=== PATIENT | male | born 1950 | race Caucasian/White ===

== ENCOUNTER 2017-07-18 16:07 | Inpatient (IN) | payer MEDICARE, OTHER ==
[2017-07-18] MEDS ORDERED: LIDOCAINE 2% INJ 20 MG/ML (20 ML MDV) ONE (16:14)
[2017-07-18] MEDS ORDERED: IV FLUID CONTINUATION 1,000 ML IV ONE (16:23)
[2017-07-18] MEDS ORDERED: LIDOCAINE 2% INJ 20 MG/ML SQ ONE (16:38)
[2017-07-18] MEDS ORDERED: IOHEXOL 350 MG/ML 125ML BOTTLE INJ ONE (16:55)
[2017-07-18] MEDS ORDERED: RX INFO: IV CONTRAST WAS GIVEN 1 EACH MISC MISCELLANE PRN (16:59)
[2017-07-18] MEDS ORDERED: SODIUM CHLORIDE 0.9% 1,000 ML IV SCH (17:00)
[2017-07-18] MEDS ORDERED: ASPIRIN 81 MG PO STA (17:04)
[2017-07-18 18:08] VITALS: BMI 22.4
[2017-07-18 18:19] VITALS: RESP 16
[2017-07-18] MEDS ORDERED: ATORVASTATIN 40 MG TAB PO SCH (21:00)
[2017-07-18] MEDS: METOPROLOL SUCCINATE (ER) 50 MG TAB.ER.24H PO SCH (21:38)
--- NOTE | 2017-07-18 21:38 | CC ---
CARDIAC CATHETERIZATION REPORT INDICATION: Acute myocardial infarction. PROCEDURE NOTE: After obtaining informed consent, left heart catheterization, coronary angiogram and aortogram were performed via the right femoral artery using standard Vani catheters. The patient tolerated the procedure well without any obvious immediate complications. A femoral angiogram was performed and Angio-Seal was deployed for hemostasis. FINDINGS: 1. HEMODYNAMICS: The left ventricular end-diastolic pressure is 16 to 18 mm. There is no significant gradient across aortic valve. 2. LEFT VENTRICULOGRAM: Left ventriculogram is not performed. 3. AORTOGRAM: Aortogram was performed in left lateral position. Aorta has normal signs. There is no evidence of aneurysm or dissection. 4. ANGIOGRAPHIC DATA:. Left Main Coronary Artery: Left main coronary artery appears calcified but is free of significant stenosis. Divides into left anterior descending coronary artery and circumflex coronary artery. The LAD was previously stented in the proximal part and the stented segment appears normal. He has a large caliber diagonal branch that is free of significant stenosis. There is a mild 30-40% atherosclerotic plaque in mid LAD. Circumflex coronary artery is a nondominant vessel and is free of significant disease. Right coronary artery is a large dominant vessel and is free of significant disease. CONCLUSIONS: 1. Patent stent within the LAD with mild nonobstructive disease in mid LAD. 2. Aortogram does not show any aneurysm or dissection. PLAN: The patient's chest discomfort and EKG changes could be related to the vasospasms related to recent cocaine use. The patient is stable and pain-free at this time. We will admit him to hospital. Hopefully he can be discharged home over the next 2 days. We will obtain a 2D echo and troponins on him. MMODL / IJN: [id number] /
--- NOTE | 2017-07-18 21:38 | CONS ---
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 This started while he was working outside moderate to severe intensity, associated with dizziness and diaphoresis. EKG showed sinus rhythm, extensive ST-T wave changes including subtle ST-segment elevation in V1, V2. Due to this, he was brought in urgently as an emergent cardiac catheterization and possible angioplasty. 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 The patient had been explained of risks, benefits and alternatives. The patient uses cocaine and apparently used cocaine yesterday. PAST MEDICAL HISTORY: Significant for coronary artery disease. MEDICATIONS: He does not have a list. ALLERGIES: He does not know. FAMILY HISTORY: Negative for premature coronary artery disease. SOCIAL HISTORY: Significant for drug abuse. REVIEW OF SYSTEMS: HEENT is unremarkable. CARDIAC: As described above. RESPIRATORY: Negative. GI: Negative. GENITOURINARY: Negative. ALLERGY: Negative. MUSCULOSKELETAL: Negative. SKIN: Negative. ENDOCRINE: Negative. PSYCHOSOCIAL: Negative. CONSTITUTIONAL: Negative. ONCOLOGICAL: Negative. The rest of the system review is not relevant. EXAM: Comfortable at rest. Vital signs are stable. There is no jugular venous distention. Carotid upstroke is normal. There is no bruit. Chest exam reveals good air entry bilaterally. Heart exam reveals first and second heart sounds. No gallop. No murmur. No rub. Abdomen is soft, nontender. Exam extremities did not reveal any edema. Peripheral pulses are felt. EKG shows acute ischemic syndrome. Labs have been reviewed. Creatinine is normal. Hemoglobin is normal. ASSESSMENT: Acute anterior wall myocardial infarction. PLAN: The patient will undergo emergent cardiac catheterization. He had been explained the risks, benefits and alternatives. MMODL / IJN: [id number] /
[2017-07-19 08:24] VITALS: TEMP 98.4
[2017-07-19] MEDS: HYDROcodone/APAP 5-325MG 1 EACH TAB PO PRN ×2 (08:28→12:14)
[2017-07-19] MEDS: METOPROLOL SUCCINATE (ER) 50 MG TAB.ER.24H PO SCH (08:28)
[2017-07-19 11:57] VITALS: BP 176/89; PULSE 63
--- NOTE | 2017-07-19 14:08 | P.HPIM ---
History of Present Illness 66-year-old male was transferred from [facility] after he would I was diagnosed with the ST elevation myocardial infarction. Patient was seen in [facility] with complaints of chest pressure-like sensation along with diaphoresis and shortness of breath, palpitations found to have mildly elevated troponin and patient underwent cardiac catheterization which did not show any significant coronary occlusive disease may have had vaso-spasm. Patient cleared him for discharge patient will be discharged today. Patient denied any cough his chest pain is nonpleuritic not associated with food Review of Systems REVIEW OF SYSTEMS: CONSTITUTIONAL: No fever, no malaise, no fatigue. HEENT: No recent visual problems or hearing problems. Denied any sore throat. CARDIOVASCULAR: No orthopnea, PND, no syncope. PULMONARY: No shortness of breath, no cough, no hemoptysis. GASTROINTESTINAL: No diarrhea, no nausea, no vomiting, no abdominal pain. Normoactive bowel sounds. NEUROLOGICAL: No headaches, no weakness, no numbness. HEMATOLOGICAL: Denies any bleeding or petechiae. GENITOURINARY: Denies any burning micturition, frequency, or urgency. MUSCULOSKELETAL/RHEUMATOLOGICAL: Denies any joint pain, swelling, or any muscle pain. ENDOCRINE: Denies any polyuria or polydipsia. The rest of the 14-point review of systems is negative. Past Medical History History of Any Multi-Drug Resistant Organisms: None Reported Past Anesthesia/Blood Transfusion Reactions: No Reported Reaction Past Psychological History: ADD/ADHD Additional Psychological History / Comment(s): was incarcerated in [place] and released in september 2016 Smoking Status: Current every day smoker Past Alcohol Use History: Daily, Heavy Additional Past Alcohol Use History / Comment(s): 6 25oz beers a day Past Drug Use History: Cocaine, Methamphetamine Medications and Allergies Home Medications Medication Instructions Recorded Confirmed Type Baclofen [Lioresal] 20 mg PO BID 07/18/17 07/18/17 History Gabapentin [Neurontin] 300 mg PO BID 07/18/17 07/18/17 History HYDROcodone/APAP 10-325MG [[place] 1 tab PO TID PRN 07/18/17 07/18/17 History 10-325] Hydrochlorothiazide [Hydrodiuril] 25 mg PO DAILY 07/18/17 07/18/17 History Lidocaine [Anecream 4%] 1 applic TOPICAL BID PRN 07/18/17 07/18/17 History Magnesium Oxide [Mag-Ox] 400 mg PO DAILY 07/18/17 07/18/17 History Ranitidine HCl [Zantac] 150 mg PO BID 07/18/17 07/18/17 History Simvastatin [Zocor] 10 mg PO HS 07/18/17 07/18/17 History Tamsulosin HCl [Flomax] 0.4 mg PO BID 07/18/17 07/18/17 History traMADol HCL [Ultram] 50 mg PO TID PRN 07/18/17 07/18/17 History Allergies Allergy/AdvReac Type Severity Reaction Status Date / Time No Known Allergies Allergy Verified 07/18/17 18:59 Physical Exam Vitals: Vital Signs Temp Pulse Resp BP BP Pulse Ox 07/19/17 11:56 98.4 F 63 16 176/89 96 07/19/17 08:00 98.4 F 59 L 16 157/83 98 07/19/17 04:00 96.8 F L 62 16 155/80 97 07/18/17 23:57 86 16 07/18/17 23:55 86 16 128/73 96 07/18/17 20:00 89 16 07/18/17 19:44 98.6 F 89 16 137/76 94 L 07/18/17 18:14 84 16 140/88 07/18/17 17:44 91 16 135/80 07/18/17 17:29 63 16 131/82 Intake and Output 07/18/17 07/19/17 07/19/17 22:59 06:59 14:59 Intake Total 25 600 1200 Balance 25 600 1200 Intake: IV 25 600 600 Sodium Chloride 0.9% 1, 600 600 000 ml @ 75 mls/hr IV . [id number] [facility] Rx#:[id number] Oral 600 Other: Voiding Method Toilet # Voids 2 Weight 57.6 kg 53.4 kg PHYSICAL EXAMINATION: GENERAL: The patient is alert and oriented x3, not in any acute distress. Well developed, well nourished. HEENT: Pupils are round and equally reacting to light. EOMI. No scleral icterus. No conjunctival pallor. Normocephalic, atraumatic. No pharyngeal erythema. No thyromegaly. CARDIOVASCULAR: S1 and S2 present. No murmurs, rubs, or gallops. PULMONARY: Chest is clear to auscultation, no wheezing or crackles. ABDOMEN: Soft, nontender, nondistended, normoactive bowel sounds. No palpable organomegaly. MUSCULOSKELETAL: No joint swelling or deformity. EXTREMITIES: No cyanosis, clubbing, or pedal edema. NEUROLOGICAL: Gross neurological examination did not reveal any focal deficits. SKIN: No rashes. Results Labs: Abnormal Lab Results - Last 24 Hours (Table) 07/18/17 Range/Units 17:55 Troponin I 0.046 H* (0.000-0.034) ng/mL Thrombosis Risk Factor Assmnt - Choose All That Apply Each Risk Factor Represents 2 Points: Age 61-74 years Thrombosis Risk Factor Assessment Total Risk Factor Score: 2 Thrombosis Risk Factor Assessment Level: Low Risk Assessment and Plan Plan: -Non-ST elevation myocardial infarction: Secondary to coronary Vaso- spasm -Gastroesophageal reflux disease next and heparin benign prostatic hypertrophic -Hyperlipidemia -Peripheral neuropathy secondary to chronic low back pain Patient will be discharged today, no medication changes are being made.
[2017-07-19] MEDS ORDERED: ASPIRIN 81 MG PO SCH (14:45)
--- NOTE | 2017-07-19 15:32 | P.PN ---
Subjective Progress Note Date: 07/19/17 Principal diagnosis: Non-STEMI This is a 66-year-old gentleman who presented to [facility] with symptoms of chest discomfort. Patient was found to have abnormality in his troponins and was transferred here to undergo cardiac catheterization. He does have history of prior stent placement in the past. Heart catheterization was performed by Dr. Go and revealed a patent stent within the LAD with mild nonobstructive disease in the mid LAD. Aortogram was also performed which did not reveal any aneurysm or dissection. It was felt that the patient's EKG changes as well as discomfort could be secondary to vasospasm secondary to recent cocaine use. At this time the patient is stable and pain-free. Echocardiogram with Doppler study remains pending. Objective - Vital Signs Vital signs: Vital Signs Temp 98.4 F 07/19/17 11:56 Pulse 63 07/19/17 11:56 Resp 16 07/19/17 11:56 BP 176/89 07/19/17 11:56 Pulse Ox 96 07/19/17 11:56 Intake & Output 07/18/17 07/19/17 07/19/17 18:59 06:59 18:59 Intake Total 25 600 1200 Balance 25 600 1200 Weight 57.6 kg 53.4 kg Intake: IV 25 600 600 Sodium Chloride 0.9% 1, 600 600 000 ml @ 75 mls/hr IV . [id number] [facility] Rx#:[id number] Oral 600 Other: Voiding Method Toilet # Voids 2 - Exam PHYSICAL EXAMINATION: HEENT: Head is atraumatic, normocephalic. Pupils equal, round. Neck is supple. There is no elevated jugular venous pressure. HEART EXAMINATION: Heart S1, S2 normal. No murmur or gallop heard. CHEST EXAMINATION: Lungs are clear to auscultation and precussion. No chest wall tenderness is noted on palpation or with deep breathing. ABDOMEN: Soft, nontender. Bowel sounds are heard. No organomegaly noted. Right groin soft, no evidence of any hematoma. EXTREMITIES: 2+ peripheral pulses with no evidence of peripheral edema and no calf tenderness noted. NEUROLOGIC patient is awake, alert and oriented -3. . - Labs Labs: Abnormal Lab Results - Last 24 Hours (Table) 07/18/17 Range/Units 17:55 Troponin I 0.046 H* (0.000-0.034) ng/mL Assessment and Plan Plan: Assessment and plan #1 non-ST elevation MA, status post cardiac catheterization which did not reveal any significant obstructive coronary artery disease. Patient's symptoms and EKG changes could be secondary to recent cocaine use, and possible vasospasm. #2 history of coronary artery disease with prior stenting #3 EtOH abuse #4 hypertension #5 hyperlipidemia Plan Patient has been encouraged to be up ambulating in the hallway as much as tolerated today. We will review the echocardiogram with Doppler study. A follow-up appointment will be made with Dr. Martinez in the office post discharge. DNP note has been reviewed, I agree with a documented findings and plan of care. Patient was seen and examined.
--- NOTE | 2017-07-19 17:03 | ECHOF ---
Referral Reason:md MEASUREMENTS -------- HEIGHT: 160.0 cm WEIGHT: 57.2 kg BP: 155/80 RVIDd: 2.8 cm (< 3.3) IVSd: 1.6 cm (0.6 - 1.1) LVIDd: 3.5 cm (3.9 - 5.3) LVPWd: 1.7 cm (0.6 - 1.1) IVSs: 2.2 cm LVIDs: 2.3 cm LVPWs: 2.3 cm LAESV Index (A-L): 35.51 ml/m Ao Diam: 3.6 cm (2.0 - 3.7) AV Cusp: 1.4 cm (1.5 - 2.6) LA Diam: 2.9 cm (2.7 - 3.8) MV E Rodrigue: 1.31 m/s MV DecT: 191 ms MV A Rodrigue: 0.74 m/s MV E/A Ratio: 1.76 AV maxP.06 mmHg AV meanP.53 mmHg AR PHT: 511 ms RAP: 5.00 mmHg RVSP: 33.79 mmHg FINDINGS -------- Sinus rhythm. This was a technically good study. The left ventricular size is normal. There is moderate to severe concentric left ventricular hypert rophy. Overall left ventricular systolic function is normal with, an EF between 55 - 60 %. The right ventricle is normal in size and function. LA is moderately dilated 34-39 ml/m2 The right atrium is normal in size. Aortic valve is trileaflet and is mildly thickened. There is pqkt-me-[id number] aortic regurgitation. The aortic pressure half-time by doppler is 511ms. The mitral valve leaflets are moderately thickened. Moderate mitral regurgitation is present. Mild tricuspid regurgitation present. Right ventricular systolic pressure is normal at < 35 mmHg. There is no evidence of pulmonary hypertension. Trace/mild (physiologic) pulmonic regurgitation. The aortic root is borderline dilated. Normal inferior vena cava with normal inspiratory collapse consistent with estimated right atrial pre ssure of 5 mmHg. There is no pericardial effusion. CONCLUSIONS -------- 1. Sinus rhythm. 2. This was a technically good study. 3. The left ventricular size is normal. 4. Overall left ventricular systolic function is normal with, an EF between 55 - 60 %. 5. LA is moderately dilated 34-39 ml/m2 6. Aortic valve is trileaflet and is mildly thickened. 7. There is wosc-bi-nzkkjubt aortic regurgitation. 8. The aortic pressure half-time by doppler is 511ms. 9. The mitral valve leaflets are moderately thickened. 10. Moderate mitral regurgitation is present. 11. Mild tricuspid regurgitation present. 12. Right ventricular systolic pressure is normal at < 35 mmHg. 13. Trace/mild (physiologic) pulmonic regurgitation. 14. The aortic root is borderline dilated. 15. There is no pericardial effusion. LOGISTICS OPERATIONS MANAGER: Alejandro Verma RDCS
== END 2017-07-19 15:40 | disposition home or self-care (01) | DRG 917 ==
LOC: 6ICU 16:23 → 6SEL 17:08
PROVIDERS: ADMIT Hospitalist; ATTEND Hospitalist
PROC: B4101ZZ Fluoroscopy of Abdominal Aorta using Low Osmolar Contrast (ICD-10-PCS; principal; 2017-07-18 16:15)
PROC: 4A023N7 Measurement of Cardiac Sampling and Pressure, Left Heart, Percutaneous Approach (ICD-10-PCS; principal; 2017-07-18 16:15)
PROC: B2111ZZ Fluoroscopy of Multiple Coronary Arteries using Low Osmolar Contrast (ICD-10-PCS; principal; 2017-07-18 16:15)
DX: T40.5X1A Poisoning by cocaine, accidental (unintentional), initial encounter (principal); I21.09 ST elevation (STEMI) myocardial infarction involving other coronary artery of anterior wall; G62.9 Polyneuropathy, unspecified; E78.5 Hyperlipidemia, unspecified; F17.200 Nicotine dependence, unspecified, uncomplicated; G89.29 Other chronic pain; I10 Essential (primary) hypertension; I25.10 Atherosclerotic heart disease of native coronary artery without angina pectoris; K21.9 Gastro-esophageal reflux disease without esophagitis; Z79.899 Other long term (current) drug therapy; Z95.5 Presence of coronary angioplasty implant and graft
CPT/HCPCS: 84484; 93306; 93458; 93567

== ENCOUNTER 2017-09-18 23:25 | Observation (INO) | payer MEDICARE, OTHER ==
[2017-09-19] MEDS ORDERED: ASPIRIN 81 MG PO STA (00:10)
[2017-09-19] MEDS ORDERED: NITROGLYCERIN OINT 1 INCH/GM PACKET TOPICAL STA (00:10)
[2017-09-19] MEDS ORDERED: HEPARIN SODIUM,PORCINE 5,000 UNIT/ML 1 ML VIAL IV STA (00:10)
[2017-09-19] MEDS ORDERED: SODIUM CHLORIDE 0.9% 1,000 ML IV STA (00:10)
[2017-09-19] MEDS ORDERED: KETOROLAC 30 MG/ML 1 ML VIAL IVP STA (00:11)
[2017-09-19] MEDS ORDERED: HEPARIN SOD,PORK IN 0.45% NACL 25,000 UNIT in 0.45% NACL 1 500ML.BAG IV SCH (00:15)
--- NOTE | 2017-09-19 00:15 | ED ---
Chest Pain HPI - General Chief Complaint: Chest Pain Stated Complaint: CHEST PAIN Time Seen by Provider: 09/18/17 23:47 Source: patient, RN notes reviewed Mode of arrival: wheelchair Limitations: no limitations - History of Present Illness Initial Comments: This is a 67-year-old male with a history of heart disease and 2 stents in the past who states he had the onset over last day or so of mid sternal chest pain is nonradiating. He states it currently is 7/10 severity was up to 89/10 and sharp in nature increase with deep breathing but feels identical to what he had with his previous heart attack and stent placement. He denies any cough fevers chills nausea vomiting sweats. No other modifying factors at this time. MD Complaint: chest pain - Related Data Home Medications Medication Instructions Recorded Confirmed Baclofen [Lioresal] 20 mg PO BID 07/18/17 07/18/17 Gabapentin [Neurontin] 300 mg PO BID 07/18/17 07/18/17 HYDROcodone/APAP 10-325MG [[place] 1 tab PO TID PRN 07/18/17 07/18/17 10-325] Hydrochlorothiazide [Hydrodiuril] 25 mg PO DAILY 07/18/17 07/18/17 Lidocaine [Anecream 4%] 1 applic TOPICAL BID PRN 07/18/17 07/18/17 Magnesium Oxide [Mag-Ox] 400 mg PO DAILY 07/18/17 07/18/17 Ranitidine HCl [Zantac] 150 mg PO BID 07/18/17 07/18/17 Simvastatin [Zocor] 10 mg PO HS 07/18/17 07/18/17 Tamsulosin HCl [Flomax] 0.4 mg PO BID 07/18/17 07/18/17 traMADol HCL [Ultram] 50 mg PO TID PRN 07/18/17 07/18/17 Previous Rx's Medication Instructions Recorded Aspirin 81 mg PO DAILY #30 chew 07/19/17 Metoprolol Succinate (ER) [Toprol 50 mg PO DAILY #30 tab.er.24h 07/19/17 XL] Allergies Allergy/AdvReac Type Severity Reaction Status Date / Time No Known Allergies Allergy Verified 09/18/17 23:30 Review of Systems ROS Statement: Those systems with pertinent positive or pertinent negative responses have been documented in the HPI. ROS Other: All systems not noted in ROS Statement are negative. EKG Findings - EKG Results: EKG: interpreted by ERMD, sinus rhythm (Sinus rhythm rate of 108. Interval 158 QRS duration 106 QT since QTC of 340/455 LVH with repolarization abnormality this is compared with EKG dated 07/19/17 which does show a similar configuration without tachycardia) Past Medical History Past Medical History: Chest Pain / Angina, Hyperlipidemia, Hypertension, Myocardial Infarction ([place]) History of Any Multi-Drug Resistant Organisms: None Reported Past Surgical History: Heart Catheterization With Stent Past Anesthesia/Blood Transfusion Reactions: No Reported Reaction Past Psychological History: ADD/ADHD Smoking Status: Current every day smoker Past Alcohol Use History: Daily, Heavy Past Drug Use History: Cocaine, Methamphetamine General Exam - General Exam Comments Initial Comments: This is a well-developed well-nourished awake alert oriented times 3 male Limitations: no limitations General appearance: alert, anxious Head exam: Present: atraumatic, normocephalic, normal inspection Eye exam: Present: normal appearance, PERRL, EOMI. Absent: scleral icterus, conjunctival injection, periorbital swelling ENT exam: Present: normal exam, mucous membranes moist Neck exam: Present: normal inspection. Absent: tenderness, meningismus, lymphadenopathy Respiratory exam: Present: normal lung sounds bilaterally, chest wall tenderness (Tenderness palpation over left costal sternal margin this does reproduce patient's pain but he still states it feels similar to when he had with his previous heart attack.). Absent: respiratory distress, wheezes, rales , rhonchi, stridor Cardiovascular Exam: Present: normal rhythm, tachycardia, normal heart sounds. Absent: systolic murmur, diastolic murmur, rubs, gallop, clicks GI/Abdominal exam: Present: soft, normal bowel sounds. Absent: distended, tenderness, guarding, rebound, rigid Extremities exam: Present: normal inspection, full ROM, normal capillary refill. Absent: tenderness, pedal edema, joint swelling, calf tenderness Back exam: Present: normal inspection Neurological exam: Present: alert, oriented X3, CN II-XII intact Psychiatric exam: Present: normal affect, normal mood Skin exam: Present: warm, dry, intact, normal color. Absent: rash Course Vital Signs 09/18/17 09/19/17 23:27 00:35 Temperature 98.5 F Pulse Rate 108 H 107 H Respiratory 20 18 Rate Blood Pressure 117/69 117/71 O2 Sat by Pulse 99 95 Oximetry - Reevaluation(s) Reevaluation #1: 09/19/17 01:11 Reevaluation patient reveals marked improvement in the chest pain after the treatment that was rendered. Chest Pain MDM - MDM Imaging shows no acute findings I did discuss the findings with the patient is initial troponin is within normal limits EKG showed no changes from the previous however the patient presentation is consistent with angina. He did get improvement and has no chest pain after the initial treatment. He will be admitted with cardiology consultation. Critical Care Time Critical Care Time: Yes Critical Care Time: 35 minutes of critical care time which includes initial presentation with history physical labs x-rays reevaluation the patient to responsive therapy review of old charting admission to the patient's previous hospitalist group. Admission orders and documentation of the above. Disposition Clinical Impression: Unstable angina pectoris, Chest pain Disposition: ADMITTED IP TO THIS [facility] Condition: Stable Referrals: None,Stated [Primary Care Provider] - 1-2 days
[2017-09-19 00:26] LABS: Basophils % (A) 1 %; Eosinophils # (A) 0.2 k/uL (0-0.7); Eosinophils % (A) 3 %; HCT 43.3 % (39.0-53.0); HGB 15.2 gm/dL (13.0-17.5); Lymphocytes # (A) 2.3 k/uL (1.0-4.8); Lymphocytes % (A) 33 %; MCH 32.4 pg (25.0-35.0); MCV 92.3 fL (80.0-100.0); Monocytes # (A) 0.5 k/uL (0-1.0); Monocytes % (A) 7 %; Neutrophils # (A) 3.6 k/uL (1.3-7.7); Neutrophils % (A) 52 %; Platelet Count 417 k/uL (150-450); RBC 4.69 m/uL (4.30-5.90); RDW 12.8 % (11.5-15.5); WBC 6.9 k/uL (3.8-10.6)
[2017-09-19 00:36] LABS: ALT 21 U/L (21-72); AST 33 U/L (17-59); Albumin 4.3 g/dL (3.5-5.0); Alkaline Phosphatase 60 U/L (38-126); Amylase 85 U/L (30-110); Anion Gap 14 mmol/L; Blood Urea Nitrogen 17 mg/dL (9-20); Calcium 10.2 mg/dL (8.4-10.2); Carbon Dioxide 29 mmol/L (22-30); Chloride 98 mmol/L (98-107); Glucose 85 mg/dL (74-99); Lipase 162 U/L (23-300); Magnesium 1.8 mg/dL (1.6-2.3); Potassium 3.9 mmol/L (3.5-5.1); Sodium 141 mmol/L (137-145); Total Bilirubin 0.3 mg/dL (0.2-1.3); Total Protein 7.3 g/dL (6.3-8.2)
[2017-09-19 00:44] LABS: D-Dimer 0.18 mg/L FEU (<0.60); Partial Thromboplastin Time 24.2 sec (22.0-30.0); Prothrombin Time 9.7 sec (9.0-12.0)
[2017-09-19 00:47] LABS: Troponin I 0.027 ng/mL (0.000-0.034)
--- NOTE | 2017-09-19 00:56 | XR ---
EXAMINATION TYPE: XR chest 2V DATE OF EXAM: 09/19/2017 COMPARISON: 06/09/2013 HISTORY: Chest pain TECHNIQUE: Frontal and lateral views of the chest are obtained. FINDINGS: There is no heart failure nor confluent pneumonic infiltrate. There are no hilar masses. T horacic aorta is atheromatous. There are chest leads. Bony thorax is intact. IMPRESSION: No active cardiopulmonary disease. No change.
[2017-09-19 01:04] LABS: Creatine Kinase MB 3.8 ng/mL (0.0-2.4)
[2017-09-19] MEDS ORDERED: NITROGLYCERIN SL TABS 0.4 MG TAB SUBLINGUAL PRN (01:13)
[2017-09-19] MEDS ORDERED: LIDOCAINE 4% CREAM 5 GM TUBE TOPICAL PRN (01:15)
[2017-09-19] MEDS ORDERED: traMADol 50 MG TAB PO PRN (01:15)
[2017-09-19 02:33] VITALS: BMI 21.2
[2017-09-19] MEDS: NITROGLYCERIN OINT 1 INCH/GM PACKET TOPICAL SCH ×3 (06:11→17:52)
[2017-09-19] MEDS: HYDROcodone/APAP 10-325MG 1 EACH TAB PO PRN ×2 (07:11→18:40)
[2017-09-19 08:44] LABS: Creatine Kinase MB 3.8 ng/mL (0.0-2.4)
[2017-09-19 08:47] LABS: Troponin I 0.053 ng/mL (0.000-0.034)
[2017-09-19] MEDS ORDERED: HEPARIN SODIUM,PORCINE 5,000 UNIT/ML 1 ML VIAL IV PRN (08:53)
--- NOTE | 2017-09-19 09:07 | P.CRDCN ---
History of Present Illness History of present illness: Patient admitted with shortness of breath and chest discomfort Minimal coronary artery disease on coronary angiography in the past. Awaiting BUTCH with Dr. Go patient stable at this time. Boderline troponins Suggest proceed with BUTCH on this admission, aspirin and atorvastatin 40 mrem daily Recent cath report noted. No obstructive CAD mid LAD Discussed with Dr. Go. We'll proceed with BUTCH on this admission Past Medical History Past Medical History: Chest Pain / Angina, Hyperlipidemia, Hypertension, Myocardial Infarction ([place]) Last Myocardial Infarction Date:: 2017 History of Any Multi-Drug Resistant Organisms: None Reported Past Surgical History: Heart Catheterization With Stent Additional Past Surgical History / Comment(s): stent x 2 - 6mo apart Past Anesthesia/Blood Transfusion Reactions: No Reported Reaction Date of Last Stent Placement:: ? -approx 15 yrs Past Psychological History: ADD/ADHD Additional Psychological History / Comment(s): was incarcerated in [place] and released in september 2016 Smoking Status: Current every day smoker Past Alcohol Use History: Daily, Heavy Additional Past Alcohol Use History / Comment(s): 3-4 25oz beers a day Past Drug Use History: Cocaine, Methamphetamine - Past Family History Father Family Medical History: Cancer, CVA/TIA Additional Family Medical History / Comment(s): passed Medications and Allergies Home Medications Medication Instructions Recorded Confirmed Type Baclofen [Lioresal] 20 mg PO Q8H 07/18/17 09/19/17 History Gabapentin [Neurontin] 300 mg PO BID 07/18/17 09/19/17 History HYDROcodone/APAP 10-325MG [[place] 1 tab PO TID PRN 07/18/17 09/19/17 History 10-325] Hydrochlorothiazide [Hydrodiuril] 25 mg PO DAILY 07/18/17 09/19/17 History Ranitidine HCl [Zantac] 150 mg PO BID 07/18/17 09/19/17 History Simvastatin [Zocor] 10 mg PO HS 07/18/17 09/19/17 History Tamsulosin HCl [Flomax] 0.4 mg PO BID 07/18/17 09/19/17 History traMADol HCL [Ultram] 50 mg PO TID PRN 07/18/17 09/19/17 History Aspirin 81 mg PO DAILY #30 chew 07/19/17 09/19/17 Rx Metoprolol Succinate (ER) [Toprol 50 mg PO DAILY #30 tab.er.24h 07/19/17 Rx XL] ALPRAZolam [Xanax] 0.125 mg PO BID PRN 09/19/17 09/19/17 History Ibuprofen [Motrin] 600 mg PO TID PRN 09/19/17 09/19/17 History Allergies Allergy/AdvReac Type Severity Reaction Status Date / Time No Known Allergies Allergy Verified 09/19/17 08:21 Physical Exam Vitals: Vital Signs Temp Pulse Pulse Resp BP BP Pulse Ox 09/19/17 07:42 98.1 F 68 16 123/82 97 09/19/17 02:36 80 18 09/19/17 02:07 98.1 F 74 18 116/58 98 09/19/17 01:13 106 H 18 115/58 97 09/19/17 00:35 107 H 18 117/71 95 09/18/17 23:27 98.5 F 108 H 20 117/69 99 Intake and Output 09/18/17 09/19/17 09/19/17 22:59 06:59 14:59 Intake Total 110.357 Balance 110.357 Intake: Intake, IV Titration 110.357 Amount Heparin Sod,Pork in 0.45% 110.357 NaCl 25,000 unit In 0.45 % NaCl 1 500ml.bag @ 12 UNITS/KG/HR 13.06 mls/hr IV .Q24H [facility] Rx#: [id number] Other: Voiding Method Toilet # Voids 3 Weight 54.431 kg Results 09/19/17 00:01 09/19/17 00:01 Cardiac Enzymes 09/19/17 09/19/17 09/19/17 Range/Units 00:01 00:01 07:27 AST 33 (17-59) U/L CK-MB (CK-2) 3.8 H* 3.8 H* (0.0-2.4) ng/mL Troponin I 0.027 0.053 H* (0.000-0.034) ng/mL Coagulation 09/19/17 09/19/17 Range/Units 00:01 07:27 PT 9.7 (9.0-12.0) sec APTT 24.2 34.8 H (22.0-30.0) sec CBC 09/19/17 Range/Units 00:01 WBC 6.9 (3.8-10.6) k/uL RBC 4.69 (4.30-5.90) m/uL Hgb 15.2 (13.0-17.5) gm/dL Hct 43.3 (39.0-53.0) % Plt Count 417 (150-450) k/uL Comprehensive Metabolic Panel 09/19/17 Range/Units 00:01 Sodium 141 (137-145) mmol/L Potassium 3.9 (3.5-5.1) mmol/L Chloride 98 (98-107) mmol/L Carbon Dioxide 29 (22-30) mmol/L BUN 17 (9-20) mg/dL Creatinine 0.70 (0.66-1.25) mg/dL Glucose 85 (74-99) mg/dL Calcium 10.2 (8.4-10.2) mg/dL AST 33 (17-59) U/L ALT 21 (21-72) U/L Alkaline Phosphatase 60 (38-126) U/L Total Protein 7.3 (6.3-8.2) g/dL Albumin 4.3 (3.5-5.0) g/dL Current Medications Generic Name Dose Route Start Last Admin Trade Name Freq PRN Reason Stop Dose Admin Hydrocodone Bitart/Acetaminophen 1 each 09/19/17 01:15 09/19/17 07:11 [place] 10 PO 1 each TID PRN Administration Pain Aspirin 325 mg 09/20/17 09:00 Aspirin PO DAILY [facility] Atorvastatin Calcium 10 mg 09/19/17 21:00 Lipitor PO HS [facility] Baclofen 20 mg 09/19/17 09:00 Lioresal PO BID [facility] Famotidine 20 mg 09/19/17 09:00 Pepcid PO BID [facility] Gabapentin 300 mg 09/19/17 09:00 Neurontin PO BID [facility] Heparin Sodium (Porcine) 0 unit 09/19/17 08:53 09/19/17 09:00 Heparin IV 2,750 unit PER PROTOCOL PRN Administration Low PTT Protocol Hydrochlorothiazide 25 mg 09/19/17 09:00 Hydrodiuril PO DAILY [facility] Heparin Sodium/Sodium Chloride 500 mls @ 13.06 mls/hr 09/19/17 00:15 08:57 25,000 unit/ Sodium Chloride IV 15.06 units/kg/hr .Q24H [facility] 16.4 mls/hr Protocol Titration 12 UNITS/KG/HR Sodium Chloride 1,000 mls @ 100 mls/hr 09/19/17 00:10 09/19/17 00:26 Saline 0.9% IV 09/19/17 10:09 100 mls/hr .Q10H [facility] Administration Sodium Chloride 1,000 mls @ 20 mls/hr 09/19/17 01:15 Saline 0.9% IV .Q24H [facility] Lidocaine HCl 1 applic 09/19/17 01:15 Lmx 4 TOPICAL BID PRN Pain Magnesium Oxide 400 mg 09/19/17 09:00 Mag-Ox PO DAILY [facility] Metoprolol Succinate 50 mg 09/19/17 09:00 Toprol Xl PO DAILY [facility] Nitroglycerin 1 inch 09/19/17 06:00 09/19/17 06:11 Nitro-Bid Oint TOPICAL Not Given Q6HR [facility] Nitroglycerin 0.4 mg 09/19/17 01:13 Nitrostat SUBLINGUAL Q5M PRN Chest Pain Tamsulosin HCl 0.4 mg 09/19/17 09:00 Flomax PO BID [facility] Tramadol HCl 50 mg 09/19/17 01:15 Ultram PO TID PRN Pain Intake and Output 09/18/17 09/19/17 09/19/17 22:59 06:59 14:59 Intake Total 110.357 Balance 110.357 Intake: Intake, IV Titration 110.357 Amount Heparin Sod,Pork in 0.45% 110.357 NaCl 25,000 unit In 0.45 % NaCl 1 500ml.bag @ 12 UNITS/KG/HR 13.06 mls/hr IV .Q24H [facility] Rx#: [id number] Other: Voiding Method Toilet # Voids 3 Weight 54.431 kg 09/19/17 00:01 09/19/17 00:01
[2017-09-19] MEDS: MAGNESIUM OXIDE 400 MG TAB PO SCH (09:46)
[2017-09-19] MEDS: HYDROCHLOROTHIAZIDE 25 MG TAB PO SCH (09:46)
[2017-09-19] MEDS: GABAPENTIN 300 MG CAP PO SCH ×2 (09:46→21:18)
[2017-09-19] MEDS: FAMOTIDINE 20 MG TAB PO SCH ×2 (09:46→21:17)
[2017-09-19] MEDS: TAMSULOSIN 0.4 MG CAP.ER.24H PO SCH ×2 (09:46→21:17)
[2017-09-19] MEDS: BACLOFEN 10 MG TAB PO SCH ×2 (09:47→21:17)
[2017-09-19] MEDS: METOPROLOL SUCCINATE (ER) 50 MG TAB.ER.24H PO SCH (09:47)
[2017-09-19] MEDS: SODIUM CHLORIDE 0.9% 1,000 ML IV SCH (10:38)
[2017-09-19 11:12] LABS: Amphetamine Screen,Urine Detected (NotDetected); Barbiturate Screen,Urine Not Detected (NotDetected); Benzodiazepines Screen,Urine Not Detected (NotDetected); Cocaine Screen,Urine Not Detected (NotDetected); Methadone Screen, Urine Not Detected (NotDetected); Opiate Screen,Urine Detected (NotDetected); Oxycodone Screen, Urine Not Detected (NotDetected); Phencyclidine Screen,Urine Not Detected (NotDetected); Tricyclic Antidepressant,Urine Not Detected (NotDetected); Urn Cannabinoid Scrn Not Detected (NotDetected)
[2017-09-19] MEDS ORDERED: ALPRAZolam 0.25 MG TAB PO PRN (11:40)
[2017-09-19 11:56] LABS: Cholesterol 147 mg/dL (<200); HDL Cholesterol 79 mg/dL (40-60); LDL Cholesterol,Calculated 57 mg/dL (0-99); Triglycerides 57 mg/dL (<150)
--- NOTE | 2017-09-19 12:15 | P.HPIM ---
History of Present Illness H&P Date: 09/19/17 Patient is seen and examined at bedside This is a pleasant 67 years old male with past medical history of coronary artery disease status post 2 stents who presents with chest pain of one-day duration the patient states that he had this chest pain about 2 months ago and has when he had the stent placed for him this time he presents with a similar chest pain central pressure-like radiating into the left shoulder associated with exertion or not relieved by rest on admission the patient found in the emergency room to have elevated troponin slightly at 0.05 patient was started on heparin drip and other treatment patient today feels his chest pain is much improved in CP from 02/18 to to 06/20, patient dizziness is much improved patient has been evaluated by human resources operations specialist already started on heparin drip Risks benefits and alternative for the heparin including but not limited to bleeding into the brain GI bleed, organ dysfunction on are explained to the patient and he verbalized understanding and acceptance to continue with the same treatment Review of Systems 10 point systemic review were negative except as mentioned above Past Medical History Past Medical History: Chest Pain / Angina, Hyperlipidemia, Hypertension, Myocardial Infarction ([place]) Last Myocardial Infarction Date:: 2017 History of Any Multi-Drug Resistant Organisms: None Reported Past Surgical History: Heart Catheterization With Stent Additional Past Surgical History / Comment(s): stent x 2 - 6mo apart Past Anesthesia/Blood Transfusion Reactions: No Reported Reaction Date of Last Stent Placement:: ? -approx 15 yrs Past Psychological History: ADD/ADHD Additional Psychological History / Comment(s): was incarcerated in [place] and released in september 2016 Smoking Status: Current every day smoker Past Alcohol Use History: Daily, Heavy Additional Past Alcohol Use History / Comment(s): 3-4 25oz beers a day Past Drug Use History: Cocaine, Methamphetamine - Past Family History Father Family Medical History: Cancer, CVA/TIA Additional Family Medical History / Comment(s): passed Medications and Allergies Home Medications Medication Instructions Recorded Confirmed Type Baclofen [Lioresal] 20 mg PO Q8H 07/18/17 09/19/17 History Gabapentin [Neurontin] 300 mg PO BID 07/18/17 09/19/17 History HYDROcodone/APAP 10-325MG [[place] 1 tab PO TID PRN 07/18/17 09/19/17 History 10-325] Hydrochlorothiazide [Hydrodiuril] 25 mg PO DAILY 07/18/17 09/19/17 History Ranitidine HCl [Zantac] 150 mg PO BID 07/18/17 09/19/17 History Simvastatin [Zocor] 10 mg PO HS 07/18/17 09/19/17 History Tamsulosin HCl [Flomax] 0.4 mg PO BID 07/18/17 09/19/17 History traMADol HCL [Ultram] 50 mg PO TID PRN 07/18/17 09/19/17 History Aspirin 81 mg PO DAILY #30 chew 07/19/17 09/19/17 Rx Metoprolol Succinate (ER) [Toprol 50 mg PO DAILY #30 tab.er.24h 07/19/17 Rx XL] ALPRAZolam [Xanax] 0.125 mg PO BID PRN 09/19/17 09/19/17 History Ibuprofen [Motrin] 600 mg PO TID PRN 09/19/17 09/19/17 History Allergies Allergy/AdvReac Type Severity Reaction Status Date / Time No Known Allergies Allergy Verified 09/19/17 08:21 Physical Exam Vitals: Vital Signs Temp Pulse Pulse Resp BP BP Pulse Ox 09/19/17 07:42 98.1 F 68 16 123/82 97 09/19/17 02:36 80 18 09/19/17 02:07 98.1 F 74 18 116/58 98 09/19/17 01:13 106 H 18 115/58 97 09/19/17 00:35 107 H 18 117/71 95 09/18/17 23:27 98.5 F 108 H 20 117/69 99 Intake and Output 09/18/17 09/19/17 09/19/17 22:59 06:59 14:59 Intake Total 110.357 Balance 110.357 Intake: Intake, IV Titration 110.357 Amount Heparin Sod,Pork in 0.45% 110.357 NaCl 25,000 unit In 0.45 % NaCl 1 500ml.bag @ 12 UNITS/KG/HR 13.06 mls/hr IV .Q24H [facility] Rx#: [id number] Other: Voiding Method Toilet Toilet # Voids 3 Weight 54.431 kg Constitutional: No acute distress, conversant, pleasant Eyes: Anicteric sclerae, moist conjunctiva, no lid-lag PERRLA Oropharynx clear, no erythema, exudates Neck: Supple, FROM, no masses, or JVD No carotid bruits No thyromegaly Lungs: Clear to auscultation Clear to percussion Normal respiratory effort, no accessory muscle use Cardiovascular: Heart regular in rate and rhythm, Systolic murmur and apical area , gallops, or rubs No peripheral edema Abdominal: Soft Nontender, no guarding, rebound or rigidity Abdomen moving with respiration Normoactive bowel sounds No hepatomegaly, No splenomegaly No palpable mass No abdominal wall hernia noted Skin: Normal temperature, tone, texture, turgor No induration No subcutaneous nodules No rash, lesions No ulcers Extremities: No digital cyanosis No clubbing Pedal pulses intact and symmetrical Radial pulses intact and symmetrical Normal gait and station No calf tenderness Psychiatric: Alert and oriented to person, place and time Appropriate affect Intact judgment Neuro: Muscles Strength 5/5 in all 4 extremities Sensation to light touch grossly present throughout Cranial nerves II-XII grossly intact No focal sensory deficits Results CBC & Chem 7: 09/19/17 00:01 09/19/17 00:01 Labs: Abnormal Lab Results - Last 24 Hours (Table) 09/19/17 09/19/17 09/19/17 Range/Units 00:01 07:27 07:27 APTT 34.8 H (22.0-30.0) sec CK-MB (CK-2) 3.8 H* 3.8 H* (0.0-2.4) ng/mL Troponin I 0.053 H* (0.000-0.034) ng/mL Urine Opiates Screen (NotDetected) Ur Amphetamines Screen (NotDetected) U Methamphetamines Scrn (NotDetected) 09/19/17 Range/Units 10:40 APTT (22.0-30.0) sec CK-MB (CK-2) (0.0-2.4) ng/mL Troponin I (0.000-0.034) ng/mL Urine Opiates Screen Detected H (NotDetected) Ur Amphetamines Screen Detected H (NotDetected) U Methamphetamines Scrn Detected H (NotDetected) Thrombosis Risk Factor Assmnt - Choose All That Apply Each Risk Factor Represents 2 Points: Age 61-74 years Thrombosis Risk Factor Assessment Total Risk Factor Score: 2 Thrombosis Risk Factor Assessment Level: Low Risk Assessment and Plan Plan: 1. Chest pain possible cardiac origin versus other cardiology consultation is appreciated Chest X-rays negative, second troponin is slightly elevated at 0.053. EKG is reviewed with no significant ST T changes Continue with heparin drip Also patient is with systolic murmur which he says he knows about already Patient is going for a BUTCH tomorrow c/w aspirin and atorvastatin 40 mg daily 2. Retention continue with hydrochlorothiazide 25 mg daily and metoprolol 50 mg daily 3. Smoker: Patient is counseled to quit smoking he said he will think about it but he agrees to continue with the nicotine pouch Time with Patient: Less than 30
[2017-09-19 12:16] LABS: Creatine Kinase MB 3.7 ng/mL (0.0-2.4); Troponin I 0.048 ng/mL (0.000-0.034)
--- NOTE | 2017-09-19 13:31 | P.CRDCN ---
History of Present Illness Consult date: 09/19/17 History of present illness: Mr. Harry is a pleasant 67-year-old male past medical history significant for coronary artery disease with a patent stent in the proximal LAD per last cath July 2017. At that time he also had mild 30-40% plaque noted in the mid LAD, he did not undergo angioplasty at that time. RCA and circumflex are free of obstructive disease. At that time he was also diagnosed with aortic stenosis with a mean gradient across the valve of 54 mmHg. He also suffers from hypertension and dyslipidemia. He is a current everyday tobacco smoker and has a recent history of cocaine and methamphetamine abuse. She also drinks 3-4 beers daily. He follows with Dr. Martinez in the office. We've been asked to see him in consultation for complaints of chest pain. He states he has been feeling pain in his chest in the mid-sternal and precordial region described as a heavy pressure sensation. When the pain comes he is usually sitting and resting with no specific aggravating factors. With the pain he feels short of breath, palpitations, nausea and clammy/diaphoretic feeling all over. This lasts for a few minutes at a time and goes away on its own with no specific alleviating factors. Since arriving in the hospital he has had no further symptoms and telemetry tracings have been unremarkable. Review of office records reveal that Dr. Martinez has recommended he undergo BUTCH to fully evaluate the aortic valve and he has refused in the past. He states he hasn't used cocaine since June. EKG on arrival reveals sinus tachycardia heart rate 108 with precordial T-wave inversions and ST depression that is not a change from previous EKG in July. Chest xray is negative for an acute cardiopulmonary process. Laboratory data reviewed, hemoglobin 15.2, platelets 417, d-dimer 0.18, potassium 3.9, magnesium 1.8, creatinine 0.7, proBNP 967, troponin values as follows 0.027, 0.053, 0.048. LDL 57, HDL 79, triglycerides 57, total cholesterol 37. Urine drug screen was positive for opiates, amphetamines and methamphetamines. Current cardiac medications include simvastatin 10 mg daily, Toprol 50 mg daily , hydrochlorothiazide 25 mg daily, aspirin 81 mg daily. Review of Systems At the time of exam: CONSTITUTIONAL: Denies fever. Denies chills. EYES: Denies blurred vision. Denies vision changes. Denies eye pain. EARS, NOSE, MOUTH & THROAT: Denies headache. Denies sore throat. Denies ear pain. CARDIOVASCULAR: Denies chest pain. Denies shortness of breath. Denies orthopnea. Denies PND. Denies palpitations. RESPIRATORY: Denies cough. GASTROINTESTINAL: Denies abdominal pain. Denies diarrhea. Denies constipation. Denies nausea. Denies vomiting. MUSCULOSKELETAL: Denies myalgias. INTEGUMENTARY: Denies pruitis. Denies rash. NEUROLOGIC: Denies numbness. Denies tingling. Denies weakness. PSYCHIATRIC: Denies anxiety. Denies depression. ENDOCRINE: Denies fatigue. Denies weight change. Denies polydipsia. Denies polyurina. GENITOURINARY: Denies burning, hematuria or urgency with micturation. HEMATOLOGIC: Denies history of anemia. Denies bleeding. Past Medical History Past Medical History: Chest Pain / Angina, Hyperlipidemia, Hypertension, Myocardial Infarction ([place]) Last Myocardial Infarction Date:: 2017 History of Any Multi-Drug Resistant Organisms: None Reported Past Surgical History: Heart Catheterization With Stent Additional Past Surgical History / Comment(s): stent x 2 - 6mo apart Past Anesthesia/Blood Transfusion Reactions: No Reported Reaction Date of Last Stent Placement:: ? -approx 15 yrs Past Psychological History: ADD/ADHD Additional Psychological History / Comment(s): was incarcerated in [place] and released in september 2016 Smoking Status: Current every day smoker Past Alcohol Use History: Daily, Heavy Additional Past Alcohol Use History / Comment(s): 3-4 25oz beers a day Past Drug Use History: Cocaine, Methamphetamine - Past Family History Father Family Medical History: Cancer, CVA/TIA Additional Family Medical History / Comment(s): passed Medications and Allergies Home Medications Medication Instructions Recorded Confirmed Type Baclofen [Lioresal] 20 mg PO Q8H 07/18/17 09/19/17 History Gabapentin [Neurontin] 300 mg PO BID 07/18/17 09/19/17 History HYDROcodone/APAP 10-325MG [[place] 1 tab PO TID PRN 07/18/17 09/19/17 History 10-325] Hydrochlorothiazide [Hydrodiuril] 25 mg PO DAILY 07/18/17 09/19/17 History Ranitidine HCl [Zantac] 150 mg PO BID 07/18/17 09/19/17 History Simvastatin [Zocor] 10 mg PO HS 07/18/17 09/19/17 History Tamsulosin HCl [Flomax] 0.4 mg PO BID 07/18/17 09/19/17 History traMADol HCL [Ultram] 50 mg PO TID PRN 07/18/17 09/19/17 History Aspirin 81 mg PO DAILY #30 chew 07/19/17 09/19/17 Rx Metoprolol Succinate (ER) [Toprol 50 mg PO DAILY #30 tab.er.24h 07/19/17 Rx XL] ALPRAZolam [Xanax] 0.125 mg PO BID PRN 09/19/17 09/19/17 History Ibuprofen [Motrin] 600 mg PO TID PRN 09/19/17 09/19/17 History Allergies Allergy/AdvReac Type Severity Reaction Status Date / Time No Known Allergies Allergy Verified 09/19/17 08:21 Physical Exam Vitals: Vital Signs Temp Pulse Pulse Resp BP BP Pulse Ox 09/19/17 07:42 98.1 F 68 16 123/82 97 09/19/17 02:36 80 18 09/19/17 02:07 98.1 F 74 18 116/58 98 09/19/17 01:13 106 H 18 115/58 97 09/19/17 00:35 107 H 18 117/71 95 09/18/17 23:27 98.5 F 108 H 20 117/69 99 Intake and Output 09/18/17 09/19/17 09/19/17 22:59 06:59 14:59 Other: Voiding Method Toilet # Voids 3 Weight 54.431 kg Blood pressure 123/82 heart rate 68 afebrile maintaining oxygen saturation on room air GENERAL: This is a 67-year-old in no apparent distress at the time of my examination. HEENT: Head is atraumatic, normocephalic. Pupils are equal, round. Sclerae anicteric. Conjunctivae are clear. Mucous membranes of the mouth are moist. Neck is supple. There is no jugular venous distention. No carotid bruit is heard. LUNGS: Clear to auscultation no wheezes, rales or rhonchi. No chest wall tenderness is noted on palpation or with deep breathing. Diminished bilaterally. HEART: Regular rate and rhythm with systolic ejection murmur at the base, no rubs or gallops. S1 and S2 heard. ABDOMEN: Soft, nontender. Bowel sounds are heard. No organomegaly noted. EXTREMITIES: No evidence of peripheral edema and no calf tenderness noted. VASCULAR: Radial and dorsalis pedis pulses palpated, no evidence of clubbing. NEUROLOGIC: Patient is awake, alert and oriented x3. Results 09/19/17 00:01 09/19/17 00:01 Cardiac Enzymes 09/19/17 09/19/17 Range/Units 00:01 00:01 AST 33 (17-59) U/L CK-MB (CK-2) 3.8 H* (0.0-2.4) ng/mL Troponin I 0.027 (0.000-0.034) ng/mL Coagulation 09/19/17 09/19/17 Range/Units 00:01 07:27 PT 9.7 (9.0-12.0) sec APTT 24.2 34.8 H (22.0-30.0) sec CBC 09/19/17 Range/Units 00:01 WBC 6.9 (3.8-10.6) k/uL RBC 4.69 (4.30-5.90) m/uL Hgb 15.2 (13.0-17.5) gm/dL Hct 43.3 (39.0-53.0) % Plt Count 417 (150-450) k/uL Comprehensive Metabolic Panel 09/19/17 Range/Units 00:01 Sodium 141 (137-145) mmol/L Potassium 3.9 (3.5-5.1) mmol/L Chloride 98 (98-107) mmol/L Carbon Dioxide 29 (22-30) mmol/L BUN 17 (9-20) mg/dL Creatinine 0.70 (0.66-1.25) mg/dL Glucose 85 (74-99) mg/dL Calcium 10.2 (8.4-10.2) mg/dL AST 33 (17-59) U/L ALT 21 (21-72) U/L Alkaline Phosphatase 60 (38-126) U/L Total Protein 7.3 (6.3-8.2) g/dL Albumin 4.3 (3.5-5.0) g/dL Current Medications Generic Name Dose Route Start Last Admin Trade Name Freq PRN Reason Stop Dose Admin Hydrocodone Bitart/Acetaminophen 1 each 09/19/17 01:15 09/19/17 07:11 [place] 10 PO 1 each TID PRN Administration Pain Aspirin 325 mg 09/20/17 09:[address] [facility] Atorvastatin Calcium 10 mg 09/19/17 21:[address] [facility] Baclofen 20 mg 09/19/17 09:[address] [facility] Famotidine 20 mg 09/19/17 09:[address] [facility] Gabapentin 300 mg 09/19/17 09:[address] [facility] Hydrochlorothiazide 25 mg 09/19/17 09:[address] [facility] Heparin Sodium/Sodium Chloride 500 mls @ 13.06 mls/hr 09/19/17 00:15 00:30 25,000 unit/ Sodium Chloride IV 12 units/kg/hr .Q24H [facility] 13.06 mls/hr Protocol Administration 12 UNITS/KG/HR Sodium Chloride 1,000 mls @ 100 mls/hr 09/19/17 00:10 09/19/17 00:26 Saline 0.9% IV 09/19/17 10:09 100 mls/hr .Q10H [facility] Administration Sodium Chloride 1,000 mls @ 20 mls/hr 09/19/17 01:15 Saline 0.9% IV .Q24H [facility] Lidocaine HCl 1 applic 09/19/17 01:15 Lmx 4 TOPICAL BID PRN Pain Magnesium Oxide 400 mg 09/19/17 09:00 Mag-Ox PO DAILY [facility] Metoprolol Succinate 50 mg 09/19/17 09:[address] [facility] Nitroglycerin 1 inch 09/19/17 06:00 09/19/17 06:11 Nitro-Bid Oint TOPICAL Not Given Q6HR [facility] Nitroglycerin 0.4 mg 09/19/17 01:13 Nitrostat SUBLINGUAL Q5M PRN Chest Pain Tamsulosin HCl 0.4 mg 09/19/17 09:[address] [facility] Tramadol HCl 50 mg 09/19/17 01:15 Ultram PO TID PRN Pain Intake and Output 09/18/17 09/19/17 09/19/17 22:59 06:59 14:59 Other: Voiding Method Toilet # Voids 3 Weight 54.431 kg 09/19/17 00:01 09/19/17 00:01 Assessment and Plan Assessment: ASSESSMENT 1. Precordial chest pain with recent catheterization in July with stable CAD and probably vasospasm causing angina at that time. 2. Severe aortic stenosis, mean gradient per recent echo 54 mmHg 3. Hypertension 4. Dyslipidemia 5. Known chronic stable CAD 6. Chronic tobacco abuse 7. Chronic drug abuse with cocaine and methamphetamine 8. Chronic daily alcohol use PLAN Discussed with Dr. Martinez his primary lease analyst and he will proceed with a BUTCH small morning. The patient should be kept nothing by mouth after midnight tonight. Ongoing medical management of stable for an area artery disease. Lifestyle modifications discussed in the form of drug alcohol and tobacco cessation. Continue with aspirin and atorvastatin. Nurse Practitioner note has been reviewed, I agree with a documented findings and plan of care. Patient was seen and examined.
[2017-09-19] MEDS: NICOTINE 21MG/24HR PATCH TRANSDERM SCH (13:39)
[2017-09-19] MEDS ORDERED: ATORVASTATIN 10 MG TAB PO SCH (21:00)
[2017-09-20] MEDS: NITROGLYCERIN OINT 1 INCH/GM PACKET TOPICAL SCH ×3 (00:29→11:55)
[2017-09-20] MEDS: HYDROcodone/APAP 10-325MG 1 EACH TAB PO PRN (03:34)
[2017-09-20] MEDS ORDERED: MIDAZOLAM 2 MG/2 ML VIAL ONE (07:39)
[2017-09-20] MEDS ORDERED: fentaNYL (PF) 50 MCG/ML 2 ML AMP ONE (07:39)
[2017-09-20] MEDS ORDERED: SODIUM CHLORIDE 0.9% 500 ML IV ONE (07:55)
[2017-09-20] MEDS: BENZOCAINE SPRAY 1 CAN MUCOUS MEM ONE ×2 (07:56→08:00)
[2017-09-20] MEDS ORDERED: MIDAZOLAM 2 MG/2 ML VIAL IV ONE (08:01)
[2017-09-20] MEDS ORDERED: fentaNYL (PF) 50 MCG/ML 2 ML AMP IV ONE (08:02)
[2017-09-20 08:13] VITALS: RESP 16
[2017-09-20] MEDS ORDERED: SODIUM CHLORIDE 0.9% 1,000 ML IV SCH (08:15)
--- NOTE | 2017-09-20 08:30 | ECHOT ---
TRANSESOPHAGEAL ECHOCARDIOGRAM INDICATION: Mitral regurgitation. PROCEDURE NOTE: After obtaining informed consent, transesophageal echocardiogram is performed in left lateral position using an Omniplane probe. Local and IV sedation were obtained using Xylocaine spray, 2 mg of Versed and fentanyl. The patient tolerated the procedure well without any obvious immediate complications. FINDINGS: 1. Mitral valve appears thickened. There is mild prolapse of the anterior mitral leaflet. There is mild to moderate mitral regurgitation noted. 2. Aortic valve is a 3-leaflet valve. It shows sclerotic changes without any stenosis. There is trace aortic regurgitation noted. 3. There is mild tricuspid regurgitation noted. 4. Left ventricle shows concentric left ventricular hypertrophy with thickening of the outflow tract with normal LV function. 5. Left atrium, right atrium, right ventricle seen within normal limits. 6. Aorta appears normal. 7. There are mild atherosclerotic changes noted. 8. Interatrial septum: There is no evidence of [id number]-[id number] shunt by color-flow Doppler or [id number] shunt by agitated saline contrast study. CONCLUSIONS: 1. Mild to moderate mitral regurgitation. 2. Trace aortic regurgitation. PLAN: No further cardiac intervention is needed at this time. The patient will follow up with me in 4 months' time. MMODL / IJN: [id number] /
[2017-09-20] MEDS ORDERED: ASPIRIN 325 MG TAB PO SCH (09:00)
[2017-09-20] MEDS ORDERED: ASPIRIN 81 MG PO SCH (09:00)
[2017-09-20 09:22] VITALS: PULSE 55
[2017-09-20] MEDS: TAMSULOSIN 0.4 MG CAP.ER.24H PO SCH (10:08)
[2017-09-20] MEDS: SODIUM CHLORIDE 0.9% 1,000 ML IV SCH (10:08)
[2017-09-20] MEDS: NICOTINE 21MG/24HR PATCH TRANSDERM SCH (10:08)
[2017-09-20] MEDS: METOPROLOL SUCCINATE (ER) 50 MG TAB.ER.24H PO SCH (10:10)
[2017-09-20] MEDS: BACLOFEN 10 MG TAB PO SCH (10:10)
[2017-09-20] MEDS: GABAPENTIN 300 MG CAP PO SCH (10:10)
[2017-09-20] MEDS: FAMOTIDINE 20 MG TAB PO SCH (10:10)
[2017-09-20] MEDS: HYDROCHLOROTHIAZIDE 25 MG TAB PO SCH (10:11)
[2017-09-20] MEDS: MAGNESIUM OXIDE 400 MG TAB PO SCH (10:11)
[2017-09-20 12:19] VITALS: BP 104/72; TEMP 98
--- NOTE | 2017-09-20 13:46 | P.DS ---
Providers Date of admission: 09/19/17 01:13 Expected date of discharge: 09/20/17 Attending physician: Hallie Mayifeld Consults: 09/19/17 01:13 Consult Physician Urgent Consulting Provider: Guillermo Berger Consult Reason/Comments: Unstable angina Do you want consulting provider notified?: Yes, Notify in am Primary care physician: Stated None [facility] Course: This is a pleasant 67 years old male with past medical history of coronary artery disease status post 2 stents who presents with chest pain of one-day duration the patient states that he had this chest pain about 2 months ago and has when he had the stent placed for him this time he presents with a similar chest pain central pressure-like radiating into the left shoulder associated with exertion or not relieved by rest on admission the patient found in the emergency room to have elevated troponin slightly at 0.05 patient was started on heparin drip and other treatment patient today feels his chest pain is much improved in CP from 02/18 to to 06/20, patient dizziness is much improved patient has been evaluated by [facility]an[facility] support worker already started on heparin drip on the day of discharge hic CP is resolved completely , no dyspnea , no other s/ s and states he is back to his normal and he is ambulatory with no problems Patient has been evaluated by cardiology team under consult is appreciated discussed the case with them most likely the patient has vaso-spasm with known coronary artery disease, his high troponins on admission were trending down patient's symptoms of chest pain and dyspnea or completely resolved upon discharge Patient has systolic murmur and underwent BUTCH which shows no concerning for aortc stenosis Cleared by cardiology team and he can be discharged and follow-up with their clinic as an outpatient in 4 months Patient's heart rate was on the low side found 50s blood pressures in the low size with systolic around 100, patient is asymptomatic, lower the dose of metoprolol XL from 50 to 25 mg daily Patient's urine toxicology was positive for methamphetamine and if he can been discussed with the patient risks benefits and alternatives are explained for him with recommendation to quit wasn't short stay can be some stenosis but he agrees to be referred for substance abuse program Patient is counseled about smoking and alcohol cessation, he verbalized understanding and acceptance but he doesn't want to quit for now and he said he will follow-up with his PCP Patients with chronic back pain on Florien and Ultram when necessary for many years i.e. more than 20 years Risks benefits and alternatives including but not limited to respiratory and cardiac depression organ dysfunction and are explained to the patient and he verbalized understanding and acceptance and he said he he will discuss it with his PCP ends for these medications as provided for the patient's Patient states to me that he has an appointment with his PCP Dr. Villaseñor on October 02 at 9:30 in the morning and he said he is going to call to make sure about time and date Problem list and management plan Is discussed with the patient and he verbalizes understanding and acceptance Patient was found stable clinically and can be discharged home but he needs follow up as an outpatient and he agrees Patient Condition at Discharge: Stable Plan - Discharge Summary New Discharge Prescriptions: New Nicotine 21Mg/24Hr Patch [Habitrol] 1 patch TRANSDERM DAILY patch Nitroglycerin Sl Tabs [Nitrostat] 0.4 mg SUBLINGUAL Q5M PRN #30 tab PRN Reason: Chest Pain Metoprolol Succinate [Toprol XL] 25 mg PO DAILY #30 tab Continue Baclofen [Lioresal] 20 mg PO Q8H traMADol HCL [Ultram] 50 mg PO TID PRN PRN Reason: Pain Hydrochlorothiazide [Hydrodiuril] 25 mg PO DAILY HYDROcodone/APAP 10-325MG [Florien 10-325] 1 tab PO TID PRN PRN Reason: Pain Simvastatin [Zocor] 10 mg PO HS Ranitidine HCl [Zantac] 150 mg PO BID Gabapentin [Neurontin] 300 mg PO BID Tamsulosin HCl [Flomax] 0.4 mg PO BID Aspirin 81 mg PO DAILY #30 chew ALPRAZolam [Xanax] 0.125 mg PO BID PRN PRN Reason: Anxiety Discontinued Metoprolol Succinate (ER) [Toprol XL] 50 mg PO DAILY #30 tab.er.24h Ibuprofen [Motrin] 600 mg PO TID PRN PRN Reason: Pain Discharge Medication List Baclofen [Lioresal] 20 mg PO Q8H 07/18/17 [History] Gabapentin [Neurontin] 300 mg PO BID 07/18/17 [History] HYDROcodone/APAP 10-325MG [Florien 10-325] 1 tab PO TID PRN 07/18/17 [History] Hydrochlorothiazide [Hydrodiuril] 25 mg PO DAILY 07/18/17 [History] Ranitidine HCl [Zantac] 150 mg PO BID 07/18/17 [History] Simvastatin [Zocor] 10 mg PO HS 07/18/17 [History] Tamsulosin HCl [Flomax] 0.4 mg PO BID 07/18/17 [History] traMADol HCL [Ultram] 50 mg PO TID PRN 07/18/17 [History] Aspirin 81 mg PO DAILY #30 chew 07/19/17 [Rx] ALPRAZolam [Xanax] 0.125 mg PO BID PRN 09/19/17 [History] Metoprolol Succinate [Toprol XL] 25 mg PO DAILY #30 tab 09/20/17 [Rx] Nicotine 21Mg/24Hr Patch [Habitrol] 1 patch TRANSDERM DAILY patch 09/20/17 [Rx] Nitroglycerin Sl Tabs [Nitrostat] 0.4 mg SUBLINGUAL Q5M PRN #30 tab 09/20/17 [Rx ] Follow up Appointment(s)/Referral(s): González Martinez MD [STAFF PHYSICIAN] - 01/21/18 2:45 pm Charleen Esparza MD [STAFF PHYSICIAN] - 10/02/17 9:30 am Patient Instructions/Handouts: Transesophageal Echocardiogram (DC), How to Stop Smoking (DC), Angina (DC) Activity/Diet/Wound Care/Special Instructions: remove nicotine patch if resume smoking- smoking cessation encouraged Discharge Disposition: HOME SELF-CARE
== END 2017-09-20 13:51 | disposition home or self-care (01) ==
LOC: EC 23:25 → 3OBS 09-19 01:13
PROVIDERS: ADMIT Internal Medicine; ATTEND Internal Medicine
DX: R07.9 Chest pain, unspecified (principal); I25.10 Atherosclerotic heart disease of native coronary artery without angina pectoris; F15.10 Other stimulant abuse, uncomplicated; F14.10 Cocaine abuse, uncomplicated; Z72.89 Other problems related to lifestyle; I10 Essential (primary) hypertension; I34.0 Nonrheumatic mitral (valve) insufficiency; R79.89 Other specified abnormal findings of blood chemistry; E78.5 Hyperlipidemia, unspecified; I25.2 Old myocardial infarction; G89.29 Other chronic pain; M54.9 Dorsalgia, unspecified; F90.9 Attention-deficit hyperactivity disorder, unspecified type; F17.200 Nicotine dependence, unspecified, uncomplicated; Z95.5 Presence of coronary angioplasty implant and graft; Z79.82 Long term (current) use of aspirin; Z79.899 Other long term (current) drug therapy; Z79.891 Long term (current) use of opiate analgesic; Z80.9 Family history of malignant neoplasm, unspecified; Z82.3 Family history of stroke
CPT/HCPCS: 96376 ×3; 96365 ×2; 96375 ×2; 99291 ×2; 96366; 36415; 93005; 93312; 93320; 93325; 85379; 83880; 80061; 80053; 82150; 82550; 82553; 83690; 83735; 84484; 85025; 85610; 85730; 80306; 71046; G0378 ×2; S4990 ×2; J2250; J1644 ×2; J3010; J1885

== ENCOUNTER 2017-12-19 15:06 | Observation (INO) | payer MEDICARE ==
[2017-12-19] MEDS ORDERED: SODIUM CHLORIDE 0.9% 1,000 ML IV STA (16:01)
[2017-12-19] MEDS ORDERED: ASPIRIN 81 MG PO STA (16:01)
[2017-12-19 16:16] LABS: Basophils % (A) 1 %; Eosinophils # (A) 0.1 k/uL (0-0.7); Eosinophils % (A) 2 %; HCT 44.7 % (39.0-53.0); HGB 14.7 gm/dL (13.0-17.5); Lymphocytes # (A) 1.5 k/uL (1.0-4.8); Lymphocytes % (A) 19 %; MCH 31.8 pg (25.0-35.0); MCV 96.6 fL (80.0-100.0); Mean Platelet Volume 7.1; Monocytes # (A) 0.4 k/uL (0-1.0); Monocytes % (A) 5 %; Neutrophils # (A) 5.8 k/uL (1.3-7.7); Neutrophils % (A) 73 %; Platelet Count 321 k/uL (150-450); RBC 4.63 m/uL (4.30-5.90); RDW 13.8 % (11.5-15.5)
--- NOTE | 2017-12-19 16:25 | XR ---
EXAMINATION TYPE: XR chest 2V DATE OF EXAM: 12/19/2017 COMPARISON: Prior chest x-ray September 19, 2017 HISTORY: Chest pain and tachycardia. TECHNIQUE: Frontal and lateral views of the chest are obtained. FINDINGS: There is chronic parenchymal change with mild to moderate biapical pleural/parenchymal sca rring and mild bibasilar scarring without suspicious new focal air space opacity or pneumothorax seen . Slight blunting posterior costophrenic angles new from prior exam suggests tiny bilateral pleural e ffusions The cardiac silhouette size is within normal limits. The osseous structures are intact. IMPRESSION: Chronic changes with perhaps new tiny bilateral pleural effusions. No suspicious new foc al infiltrate.
[2017-12-19 16:27] LABS: Partial Thromboplastin Time 24.8 sec (22.0-30.0); Prothrombin Time 9.9 sec (9.0-12.0)
[2017-12-19 16:38] LABS: ALT 28 U/L (21-72); AST 29 U/L (17-59); Albumin 4.2 g/dL (3.5-5.0); Alkaline Phosphatase 60 U/L (38-126); Anion Gap 9 mmol/L; Blood Urea Nitrogen 19 mg/dL (9-20); Carbon Dioxide 30 mmol/L (22-30); Chloride 101 mmol/L (98-107); Glucose 83 mg/dL (74-99); Lipase 300 U/L (23-300); Magnesium 1.8 mg/dL (1.6-2.3); Potassium 3.9 mmol/L (3.5-5.1); Sodium 140 mmol/L (137-145); Total Bilirubin 0.4 mg/dL (0.2-1.3); Total Protein 6.9 g/dL (6.3-8.2)
--- NOTE | 2017-12-19 16:47 | ED ---
General Adult HPI - General Chief complaint: Recheck/Abnormal Lab/Rx Stated complaint: racing heart/blurred vision Time Seen by Provider: 12/19/17 15:44 Source: patient Mode of arrival: wheelchair Limitations: no limitations - History of Present Illness Initial comments: Dictation was produced using [employer] dictation software. please excuse any grammatical, word or spelling errors. Chief Complaint: 67-year-old male presents with EKG abnormalities. History of Present Illness: 67-year-old male past medical history of coronary artery disease, hyperlipidemia, hypertension, myocardial infarction presents with abnormal EKG. Patient was at his primary care physician's office for medication refills. Patient has been complaining of intermittent chest pain over the past several months. An EKG was performed at PCP office and was found to be abnormal. He was instructed by his primary care physician come to the emergency Department. Patient states he's been having substernal chest pain that has been intermittent for the past several days. Denies any exacerbating or mitigating factors. Denies pain radiating to her shoulders or jaw. No associated diaphoresis. Patient extensive history of coronary artery disease he is status post multiple stents. Headache artery catheterization performed 3 months ago and no intervention was pursued at that time. Patient denies any chest pain at this moment. He reports he has been without his medications for proximally 1 month. The ROS documented in this emergency department record has been reviewed and confirmed by me. Those systems with pertinent positive or negative responses have been documented in the HPI. All other systems are other negative and/or noncontributory. - Related Data Home Medications Medication Instructions Recorded Confirmed Baclofen [Lioresal] 20 mg PO Q8H 07/18/17 12/20/17 Ranitidine HCl [Zantac] 150 mg PO BID 07/18/17 12/20/17 Tamsulosin HCl [Flomax] 0.4 mg PO DAILY 07/18/17 12/20/17 Ascorbic Acid [Vitamin C] 500 mg PO DAILY 12/19/17 12/20/17 Previous Rx's Medication Instructions Recorded Aspirin 81 mg PO DAILY #30 chew 07/19/17 Nitroglycerin Sl Tabs [Nitrostat] 0.4 mg SUBLINGUAL Q5M PRN #30 tab 09/20/17 Atorvastatin [Lipitor] 40 mg PO DAILY #30 tab 12/20/17 Hydrochlorothiazide [Hydrodiuril] 12.5 mg PO DAILY #30 cap 12/20/17 Allergies Allergy/AdvReac Type Severity Reaction Status Date / Time IV DYE Allergy Rash/Hives Uncoded 12/20/17 00:31 Review of Systems ROS Statement: Those systems with pertinent positive or pertinent negative responses have been documented in the HPI. ROS Other: All systems not noted in ROS Statement are negative. Past Medical History Past Medical History: Chest Pain / Angina, Hyperlipidemia, Hypertension, Myocardial Infarction (ND) Last Myocardial Infarction Date:: 2017 History of Any Multi-Drug Resistant Organisms: None Reported Past Surgical History: Heart Catheterization With Stent Additional Past Surgical History / Comment(s): stent x 2 - 6mo apart Past Anesthesia/Blood Transfusion Reactions: No Reported Reaction Date of Last Stent Placement:: ? -approx 15 yrs Past Psychological History: ADD/ADHD Smoking Status: Current every day smoker Past Alcohol Use History: Occasional Past Drug Use History: Cocaine, Methamphetamine - Past Family History Father Family Medical History: Cancer, CVA/TIA Additional Family Medical History / Comment(s): passed Mother Family Medical History: Cancer Additional Family Medical History / Comment(s): lung cancer General Exam - General Exam Comments Initial Comments: PHYSICAL EXAM: General Impression: Alert and oriented x3, not in acute distress HEENT: Normocephalic atraumatic, extra-ocular movements intact, pupils equal and reactive to light bilaterally, mucous membranes moist. Cardiovascular: Heart regular rate and rhythm, S1&S2 audible, no murmurs, rubs or gallops Chest: Lungs clear to auscultation bilaterally, no rhonchi, no wheeze, no rales Abdomen: Bowel sounds present, abdomen soft, non-tender, non-distended, no organomegaly Musculoskeletal: Pulses present and equal in all extremities, no peripheral edema Motor: Power 5/5 bilaterally, no focal deficits noted Neurological: CN II-XII grossly intact, no focal motor or sensory deficits noted Skin: Intact with no visualized rashes Psych: Normal affect and mood Limitations: no limitations Course Vital Signs 12/19/17 12/19/17 12/19/17 15:22 16:11 18:00 Temperature 99.2 F Pulse Rate 77 76 70 Pulse Rate [ Pulse Oximetery ] Respiratory 18 18 Rate Blood Pressure 122/76 119/76 114/75 Blood Pressure [Right Arm] O2 Sat by Pulse 100 100 99 Oximetry 12/19/17 12/19/17 12/19/17 19:15 23:00 23:55 Temperature Pulse Rate 74 58 L 60 Pulse Rate [ Pulse Oximetery ] Respiratory 18 18 17 Rate Blood Pressure 117/68 127/76 128/88 Blood Pressure [Right Arm] O2 Sat by Pulse 97 98 98 Oximetry 12/20/17 00:00 Temperature 98.4 F Pulse Rate Pulse Rate [ 56 L Pulse Oximetery ] Respiratory 16 Rate Blood Pressure Blood Pressure 143/91 [Right Arm] O2 Sat by Pulse 97 Oximetry Medical Decision Making - Medical Decision Making ED course: 77-year-old male who is noncompliant with his medication with past history of coronary artery disease presents with abnormal EKG performed outpatient. Vital signs upon arrival are within acceptable limits. Patient is well-appearing. His physical exam is benign. EKG from PCPs office was reviewed showing multiple abnormalities. EKG was performed here showing T- wave abnormalities. EKG was compared to EKG done in September of this year with same T-wave morphology however her EKG at this time showed deeper T waves. Laboratory evaluation obtained. CBC is unremarkable. Cardiac panel unremarkable. Metabolic panel shows no acute processes. First troponin is 0.021. Patient given 1 dose of aspirin. Given comorbidities, history of noncompliance and chest pain will have patient admitted to the hospital with cardiology on consult. Discussed patient case with hospitalist who will be accepting admission. EKG Interpretation: A 12 lead EKG was obtained. It was interpreted by myself and attending physician. There is a P wave before every QRS complex. Rate is 67. Rhythm is normal sinus rhythm, VA interval 142, QRS 100, QTC 429. QT is not prolonged. No ST segment depression or elevation. There are T-wave inversions in all the precordial leads with ST depressions. There is biphasic T waves in limb leads. This EKG was compared to a previous EKG that was obtained on 09/19/2017 and showed no significant change. Overall this EKG shows nonspecific changes. - Lab Data Result diagrams: 12/21/17 06:33 12/21/17 06:33 Lab Results 12/19/17 12/19/17 12/19/17 Range/Units 14:03 14:03 14:03 WBC 8.0 (3.8-10.6) k/uL RBC 4.63 (4.30-5.90) m/uL Hgb 14.7 (13.0-17.5) gm/dL Hct 44.7 (39.0-53.0) % MCV 96.6 (80.0-100.0) fL MCH 31.8 (25.0-35.0) pg MCHC 33.0 (31.0-37.0) g/dL RDW 13.8 (11.5-15.5) % Plt Count 321 (150-450) k/uL Neutrophils % 73 % Lymphocytes % 19 % Monocytes % 5 % Eosinophils % 2 % Basophils % 1 % Neutrophils # 5.8 (1.3-7.7) k/uL Lymphocytes # 1.5 (1.0-4.8) k/uL Monocytes # 0.4 (0-1.0) k/uL Eosinophils # 0.1 (0-0.7) k/uL Basophils # 0.0 (0-0.2) k/uL PT (9.0-12.0) sec INR (<1.2) APTT (22.0-30.0) sec Sodium 140 (137-145) mmol/L Potassium 3.9 (3.5-5.1) mmol/L Chloride 101 (98-107) mmol/L Carbon Dioxide 30 (22-30) mmol/L Anion Gap 9 mmol/L BUN 19 (9-20) mg/dL Creatinine 0.50 L (0.66-1.25) mg/dL Est GFR (CKD-EPI)AfAm >90 (>60 ml/min/1.73 sqM) Est GFR (CKD-EPI)NonAf >90 (>60 ml/min/1.73 sqM) Glucose 83 (74-99) mg/dL Calcium 10.0 (8.4-10.2) mg/dL Magnesium 1.8 (1.6-2.3) mg/dL Total Bilirubin 0.4 (0.2-1.3) mg/dL AST 29 (17-59) U/L ALT 28 (21-72) U/L Alkaline Phosphatase 60 (38-126) U/L Total Creatine Kinase 50 L (55-170) U/L CK-MB (CK-2) 2.2 (0.0-2.4) ng/mL CK-MB (CK-2) Rel Index 4.4 Troponin I 0.021 (0.000-0.034) ng/mL Total Protein 6.9 (6.3-8.2) g/dL Albumin 4.2 (3.5-5.0) g/dL Lipase 300 (23-300) U/L 12/19/17 Range/Units 14:03 WBC (3.8-10.6) k/uL RBC (4.30-5.90) m/uL Hgb (13.0-17.5) gm/dL Hct (39.0-53.0) % MCV (80.0-100.0) fL MCH (25.0-35.0) pg MCHC (31.0-37.0) g/dL RDW (11.5-15.5) % Plt Count (150-450) k/uL Neutrophils % % Lymphocytes % % Monocytes % % Eosinophils % % Basophils % % Neutrophils # (1.3-7.7) k/uL Lymphocytes # (1.0-4.8) k/uL Monocytes # (0-1.0) k/uL Eosinophils # (0-0.7) k/uL Basophils # (0-0.2) k/uL PT 9.9 (9.0-12.0) sec INR 1.0 (<1.2) APTT 24.8 (22.0-30.0) sec Sodium (137-145) mmol/L Potassium (3.5-5.1) mmol/L Chloride (98-107) mmol/L Carbon Dioxide (22-30) mmol/L Anion Gap mmol/L BUN (9-20) mg/dL Creatinine (0.66-1.25) mg/dL Est GFR (CKD-EPI)AfAm (>60 ml/min/1.73 sqM) Est GFR (CKD-EPI)NonAf (>60 ml/min/1.73 sqM) Glucose (74-99) mg/dL Calcium (8.4-10.2) mg/dL Magnesium (1.6-2.3) mg/dL Total Bilirubin (0.2-1.3) mg/dL AST (17-59) U/L ALT (21-72) U/L Alkaline Phosphatase (38-126) U/L Total Creatine Kinase (55-170) U/L CK-MB (CK-2) (0.0-2.4) ng/mL CK-MB (CK-2) Rel Index Troponin I (0.000-0.034) ng/mL Total Protein (6.3-8.2) g/dL Albumin (3.5-5.0) g/dL Lipase (23-300) U/L Disposition Clinical Impression: ACS (acute coronary syndrome) Disposition: ADMITTED IP TO THIS HOSP Decision Time: 17:16
[2017-12-19 16:54] LABS: Creatine Kinase MB 2.2 ng/mL (0.0-2.4); Troponin I 0.021 ng/mL (0.000-0.034)
[2017-12-19] MEDS ORDERED: NALOXONE 0.4 MG/ML 1 ML VIAL IV PRN (17:13)
[2017-12-19] MEDS ORDERED: NITROGLYCERIN SL TABS 0.4 MG TAB SUBLINGUAL PRN (17:44)
[2017-12-19] MEDS: HYDROcodone/APAP 10-325MG 1 EACH TAB PO PRN (22:08)
[2017-12-20] MEDS: FAMOTIDINE 20 MG TAB PO SCH ×3 (00:33→20:15)
[2017-12-20] MEDS: HYDROcodone/APAP 10-325MG 1 EACH TAB PO PRN ×3 (03:47→20:15)
[2017-12-20] MEDS ORDERED: HYDROCHLOROTHIAZIDE 25 MG TAB PO SCH (09:00)
--- NOTE | 2017-12-20 09:44 | P.CRDCN ---
History of Present Illness History of present illness: Patient presenting with dizzy spells. He was sent to the hospital because his EKG was very abnormal. However on reviewing the ECG he's had a baseline abnormality in the ECG with ST segment abnormalities which are quite significant and his ECG abnormalities persist. Cardiac enzymes are normal. He was recently in the hospital and he had a detailed cardiac workup performed but upon discharge he did not fill his prescriptions. His main complaint is feeling foggy in the head headache and dizzy spells but we do not see any tachycardia or bradycardia arrhythmias and his blood pressure upon admission was normal at 122/76. Millimeters of mercury Suggest outpatient follow-up with Dr. Go and workup for dizziness. His dizziness appears noncardiac. Please see full dictation by nurse practitioner Past Medical History Past Medical History: Coronary Artery Disease (CAD), Chest Pain / Angina, GERD/ Reflux, Hyperlipidemia, Hypertension, Myocardial Infarction (PR), Prostate Disorder Additional Past Medical History / Comment(s): "blurry vision getting worse last few months" Last Myocardial Infarction Date:: 2017 History of Any Multi-Drug Resistant Organisms: None Reported Past Surgical History: Heart Catheterization With Stent Additional Past Surgical History / Comment(s): stent x 2 - 6mo apart Past Anesthesia/Blood Transfusion Reactions: No Reported Reaction Date of Last Stent Placement:: ? -approx 15 yrs Smoking Status: Current every day smoker - Past Family History Father Family Medical History: Cancer, Coronary Artery Disease (CAD), CVA/TIA, Diabetes Mellitus Additional Family Medical History / Comment(s): bone cancer. father is Mother Family Medical History: Cancer Additional Family Medical History / Comment(s): lung cancer Medications and Allergies Home Medications Medication Instructions Recorded Confirmed Type Baclofen [Lioresal] 20 mg PO Q8H 07/18/17 12/20/17 History Hydrochlorothiazide [Hydrodiuril] 25 mg PO DAILY 07/18/17 12/20/17 History Ranitidine HCl [Zantac] 150 mg PO BID 07/18/17 12/20/17 History Tamsulosin HCl [Flomax] 0.4 mg PO DAILY 07/18/17 12/20/17 History Aspirin 81 mg PO DAILY #30 chew 07/19/17 12/20/17 Rx Nitroglycerin Sl Tabs [Nitrostat] 0.4 mg SUBLINGUAL Q5M PRN #30 tab 09/20/1704/28 Rx Ascorbic Acid [Vitamin C] 500 mg PO DAILY 12/19/17 12/20/17 History Allergies Allergy/AdvReac Type Severity Reaction Status Date / Time IV DYE Allergy Rash/Hives Uncoded 12/20/17 00:31 Physical Exam Vitals: Vital Signs Temp Pulse Pulse Resp BP BP Pulse Ox 12/20/17 07:03 97.7 F 59 L 16 105/72 98 12/20/17 03:57 16 12/20/17 03:51 98.2 F 63 16 100/63 98 12/20/17 00:13 98.1 F 12/20/17 00:00 98.4 F 56 L 16 143/91 97 12/19/17 23:55 60 17 128/88 98 12/19/17 23:00 58 L 18 127/76 98 12/19/17 19:15 74 18 117/68 97 12/19/17 18:00 70 18 114/75 99 12/19/17 16:11 76 18 119/76 100 12/19/17 15:22 99.2 F 77 18 122/76 100 Intake and Output 12/19/17 12/20/17 12/20/17 22:59 06:59 14:59 Other: Voiding Method Toilet Weight 49.895 kg Results 12/19/17 14:03 12/19/17 14:03 Cardiac Enzymes 12/19/17 12/19/17 12/19/17 Range/Units 14:03 14:03 21:05 AST 29 (17-59) U/L CK-MB (CK-2) 2.2 (0.0-2.4) ng/mL Troponin I 0.021 0.023 (0.000-0.034) ng/mL 12/20/17 Range/Units 01:29 AST (17-59) U/L CK-MB (CK-2) (0.0-2.4) ng/mL Troponin I 0.026 (0.000-0.034) ng/mL Coagulation 12/19/17 Range/Units 14:03 PT 9.9 (9.0-12.0) sec APTT 24.8 (22.0-30.0) sec CBC 12/19/17 Range/Units 14:03 WBC 8.0 (3.8-10.6) k/uL RBC 4.63 (4.30-5.90) m/uL Hgb 14.7 (13.0-17.5) gm/dL Hct 44.7 (39.0-53.0) % Plt Count 321 (150-450) k/uL Comprehensive Metabolic Panel 12/19/17 Range/Units 14:03 Sodium 140 (137-145) mmol/L Potassium 3.9 (3.5-5.1) mmol/L Chloride 101 (98-107) mmol/L Carbon Dioxide 30 (22-30) mmol/L BUN 19 (9-20) mg/dL Creatinine 0.50 L (0.66-1.25) mg/dL Glucose 83 (74-99) mg/dL Calcium 10.0 (8.4-10.2) mg/dL AST 29 (17-59) U/L ALT 28 (21-72) U/L Alkaline Phosphatase 60 (38-126) U/L Total Protein 6.9 (6.3-8.2) g/dL Albumin 4.2 (3.5-5.0) g/dL Current Medications Generic Name Dose Route Start Last Admin Trade Name Freq PRN Reason Stop Dose Admin Hydrocodone Bitart/Acetaminophen 1 each 12/19/17 21:47 12/20/17 03:47 [place] 10 PO 1 each Q8H PRN Administration Moderate Pain Aspirin 81 mg 12/20/17 09:00 Aspirin PO DAILY ROSA Famotidine 20 mg 12/19/17 21:00 12/20/17 00:33 Pepcid PO 20 mg BID ROSA Administration Hydrochlorothiazide 25 mg 12/20/17 09:00 Hydrodiuril PO DAILY [facility] Sodium Chloride 1,000 mls @ 20 mls/hr 12/19/17 16:01 12/19/17 16:11 Saline 0.9% IV 12/20/17 16:00 20 mls/hr .Q24H STA Administration Naloxone HCl 0.2 mg 12/19/17 17:13 Narcan IV Q2M PRN Opioid Reversal Nitroglycerin 0.4 mg 12/19/17 17:44 Nitrostat SUBLINGUAL Q5M PRN Chest Pain Intake and Output 12/19/17 12/20/17 12/20/17 22:59 06:59 14:59 Other: Voiding Method Toilet Weight 49.895 kg 12/19/17 14:03 12/19/17 14:03
[2017-12-20] MEDS: ASPIRIN 81 MG PO SCH (10:06)
[2017-12-20 11:04] VITALS: BMI 19.5
--- NOTE | 2017-12-20 11:47 | P.CRDCN ---
History of Present Illness History of present illness: Mr. Harry is a pleasant 67-year-old male past medical history significant for coronary artery disease s/p angioplasty of mid LAD. Most recent cath 07/2017 revealed patent LAD stent with 30-40% plaque in mid portion. He also has non-rheumatic mitral valve insufficiency with recent BUTCH, hypertension , dyslipidemia, chronic tobacco use, alcohol abuse and use of cocaine and methamphetamine in the past. He denies recent use of drugs. He is a patient of Dr. Martinez in the office. We have been asked to see him in consultation for chest pain. He states he has intermittent symptoms of a very brief sharp pain in the left precordial region. This is nothing new. He states he has had these pains for some time. Including when he came in July and underwent catheterization. He states he was on his way to his PCP office yesterday because he needed his medications refilled. He has been out of his meds for 1 month. He also was having blurred vision and dizziness. He states he was almost unable to drive due to the blurred vision. His PCP did an EKG and sent him to the hospital for evaluation based on abnormal EKG. His EKG has ST segment abnormalities and T-wave inversions in precordial leads. These are not new changes, this is baseline for him. He denies any associated shortness of breath , nausea, vomiting, palpitations or diaphoresis. He also states he has noticed a weight loss of 13 lbs in the previous 3 weeks. Chest xray reveals b/l pleural effusions. Laboratory data reviewed, hemoglobin 14.7, platelets 321, sodium 140, potassium 3.9, magnesium 1.8, creatinine 0.5, cardiac enzymes negative 3. Current cardiac medications include hydrochlorothiazide 25 mg daily and aspirin 81 mg daily. He is supposed also be on atorvastatin 40 mg daily. Review of Systems At The time of my exam: CONSTITUTIONAL: Denies fever. Denies chills. EYES: Denies blurred vision. Denies vision changes. Denies eye pain. EARS, NOSE, MOUTH & THROAT: Denies headache. Denies sore throat. Denies ear pain. CARDIOVASCULAR: Denies chest pain. Denies shortness of breath. Denies orthopnea. Denies PND. Denies palpitations. RESPIRATORY: Denies cough. GASTROINTESTINAL: Denies abdominal pain. Denies diarrhea. Denies constipation. Denies nausea. Denies vomiting. MUSCULOSKELETAL: Denies myalgias. INTEGUMENTARY: Denies pruitis. Denies rash. NEUROLOGIC: Denies numbness. Denies tingling. Denies weakness. PSYCHIATRIC: Denies anxiety. Denies depression. ENDOCRINE: Denies fatigue. Denies weight change. Denies polydipsia. Denies polyurina. GENITOURINARY: Denies burning, hematuria or urgency with micturation. HEMATOLOGIC: Denies history of anemia. Denies bleeding. Past Medical History Past Medical History: Coronary Artery Disease (CAD), Chest Pain / Angina, GERD/ Reflux, Hyperlipidemia, Hypertension, Myocardial Infarction ([place]), Prostate Disorder Additional Past Medical History / Comment(s): "blurry vision getting worse last few months" Last Myocardial Infarction Date:: 2017 History of Any Multi-Drug Resistant Organisms: None Reported Past Surgical History: Heart Catheterization With Stent Additional Past Surgical History / Comment(s): stent x 2 - 6mo apart Past Anesthesia/Blood Transfusion Reactions: No Reported Reaction Date of Last Stent Placement:: ? -approx 15 yrs Smoking Status: Current every day smoker - Past Family History Father Family Medical History: Cancer, Coronary Artery Disease (CAD), CVA/TIA, Diabetes Mellitus Additional Family Medical History / Comment(s): bone cancer. father is Mother Family Medical History: Cancer Additional Family Medical History / Comment(s): lung cancer Medications and Allergies Home Medications Medication Instructions Recorded Confirmed Type Baclofen [Lioresal] 20 mg PO Q8H 07/18/17 12/20/17 History Hydrochlorothiazide [Hydrodiuril] 25 mg PO DAILY 07/18/17 12/20/17 History Ranitidine HCl [Zantac] 150 mg PO BID 07/18/17 12/20/17 History Tamsulosin HCl [Flomax] 0.4 mg PO DAILY 07/18/17 12/20/17 History Aspirin 81 mg PO DAILY #30 chew 07/19/17 12/20/17 Rx Nitroglycerin Sl Tabs [Nitrostat] 0.4 mg SUBLINGUAL Q5M PRN #30 tab 09/20/1704/28 Rx Ascorbic Acid [Vitamin C] 500 mg PO DAILY 12/19/17 12/20/17 History Allergies Allergy/AdvReac Type Severity Reaction Status Date / Time IV DYE Allergy Rash/Hives Uncoded 12/20/17 00:31 Physical Exam Vitals: Vital Signs Temp Pulse Pulse Resp BP BP Pulse Ox 12/20/17 08:00 59 L 16 12/20/17 07:03 97.7 F 59 L 16 105/72 98 12/20/17 03:57 16 12/20/17 03:51 98.2 F 63 16 100/63 98 12/20/17 00:13 98.1 F 12/20/17 00:00 98.4 F 56 L 16 143/91 97 12/19/17 23:55 60 17 128/88 98 12/19/17 23:00 58 L 18 127/76 98 12/19/17 19:15 74 18 117/68 97 12/19/17 18:00 70 18 114/75 99 12/19/17 16:11 76 18 119/76 100 12/19/17 15:22 99.2 F 77 18 122/76 100 Intake and Output 12/19/17 12/20/17 12/20/17 22:59 06:59 14:59 Other: Voiding Method Toilet Toilet Weight 49.895 kg 49.895 kg Blood pressure 105/72 heart rate 59 afebrile maintaining oxygen saturation on room air GENERAL: This is a 67-year-old male in no apparent distress at the time of my examination. HEENT: Head is atraumatic, normocephalic. Pupils are equal, round. Sclerae anicteric. Conjunctivae are clear. Mucous membranes of the mouth are moist. Neck is supple. There is no jugular venous distention. No carotid bruit is heard. LUNGS: Clear to auscultation no wheezes, rales or rhonchi. No chest wall tenderness is noted on palpation or with deep breathing. Diminished b/l. HEART: Regular rate and rhythm with systolic ejection murmur at the apex, no rubs or gallops. S1 and S2 heard. ABDOMEN: Soft, nontender. Bowel sounds are heard. No organomegaly noted. EXTREMITIES: No evidence of peripheral edema and no calf tenderness noted. VASCULAR: Radial and dorsalis pedis pulses palpated, no evidence of clubbing. NEUROLOGIC: Patient is awake, alert and oriented x3. Results 12/19/17 14:03 12/19/17 14:03 Cardiac Enzymes 12/19/17 12/19/17 12/19/17 Range/Units 14:03 14:03 21:05 AST 29 (17-59) U/L CK-MB (CK-2) 2.2 (0.0-2.4) ng/mL Troponin I 0.021 0.023 (0.000-0.034) ng/mL 12/20/17 Range/Units 01:29 AST (17-59) U/L CK-MB (CK-2) (0.0-2.4) ng/mL Troponin I 0.026 (0.000-0.034) ng/mL Coagulation 12/19/17 Range/Units 14:03 PT 9.9 (9.0-12.0) sec APTT 24.8 (22.0-30.0) sec CBC 12/19/17 Range/Units 14:03 WBC 8.0 (3.8-10.6) k/uL RBC 4.63 (4.30-5.90) m/uL Hgb 14.7 (13.0-17.5) gm/dL Hct 44.7 (39.0-53.0) % Plt Count 321 (150-450) k/uL Comprehensive Metabolic Panel 12/19/17 Range/Units 14:03 Sodium 140 (137-145) mmol/L Potassium 3.9 (3.5-5.1) mmol/L Chloride 101 (98-107) mmol/L Carbon Dioxide 30 (22-30) mmol/L BUN 19 (9-20) mg/dL Creatinine 0.50 L (0.66-1.25) mg/dL Glucose 83 (74-99) mg/dL Calcium 10.0 (8.4-10.2) mg/dL AST 29 (17-59) U/L ALT 28 (21-72) U/L Alkaline Phosphatase 60 (38-126) U/L Total Protein 6.9 (6.3-8.2) g/dL Albumin 4.2 (3.5-5.0) g/dL Current Medications Generic Name Dose Route Start Last Admin Trade Name Freq PRN Reason Stop Dose Admin Hydrocodone Bitart/Acetaminophen 1 each 12/19/17 21:47 12/20/17 03:47 [place] 10 PO 1 each Q8H PRN Administration Moderate Pain Aspirin 81 mg 12/20/17 09:00 12/20/17 10:06 Aspirin PO 81 mg DAILY ROSA Administration Famotidine 20 mg 12/19/17 21:00 12/20/17 10:06 Pepcid PO 20 mg BID ROSA Administration Hydrochlorothiazide 25 mg 12/20/17 09:00 12/20/17 10:06 Hydrodiuril PO 25 mg DAILY ROSA Administration Sodium Chloride 1,000 mls @ 20 mls/hr 12/19/17 16:01 12/19/17 16:11 Saline 0.9% IV 12/20/17 16:00 20 mls/hr .Q24H STA Administration Naloxone HCl 0.2 mg 12/19/17 17:13 Narcan IV Q2M PRN Opioid Reversal Nitroglycerin 0.4 mg 12/19/17 17:44 Nitrostat SUBLINGUAL Q5M PRN Chest Pain Intake and Output 12/19/17 12/20/17 12/20/17 22:59 06:59 14:59 Other: Voiding Method Toilet Toilet Weight 49.895 kg 49.895 kg Patient Weight 12/21/17 06:59 Weight 49.895 kg 12/19/17 14:03 12/19/17 14:03 Assessment and Plan Assessment: ASSESSMENT Dizziness and blurred vision, possibly related to hctz although he states he hasn't taken in over 1 month so very unlikely. History of coronary artery disease s/p angioplasty. Recent cath 07/2017 revealing patent stent of the LAD Nonrheumatic mitral valve insufficiency Hypertension Dyslipidemia Chronic tobacco use History of drug abuse PLAN An acute coronary event has been ruled out. Decreased hydrochlorothiazide to 12.5 mg daily. Resume atorvastatin 40 mg daily and aspirin 81 mg daily. Smoking cessation recommended. Will require further evaluation of dizziness, blurred vision and weight loss per primary care team. Follow up with Dr. Martinez. Thank you kindly for this consultation. Nurse Practitioner note has been reviewed, I agree with a documented findings and plan of care. Patient was seen and examined.
--- NOTE | 2017-12-20 13:51 | P.HPIM ---
History of Present Illness This is a pleasant 67 years old male with past medical history of coronary artery disease status post stenting, GERD, hyperlipidemia, hypertension, prostate disorder, nonsmoker, previous drug abuse like cocaine and methamphetamine in the past, denies current illicit drug abuse, non-rheumatic mitral valve insufficiency with recent BUTCH, alcohol abuse. Patient was visiting his PCP to get his medication refills and that time he complained from chest pain and has some EKG changes so they sent him to the hospital. Patient has been evaluated by cardiology and accordingly his CAPD has been ruled out. Patient states today that his chest that is almost gone and is very minimal and resolving. Patient also complaining of from worsening progressive blurry vision with some headaches at times. He says it's harder for him to see at night that's why he avoids nighttime driving. 43-4 months. He was complaining of from some dizziness but wasn't much bothering the patient says whenever he tries to get up very quickly he got wobbly on the last time this happened was about 2 days ago and he doesn't have it today. Patient denies any dyspnea. No change in urine or bowel habits. He has like occasional dry cough. But no flame. No syncope. No fever. Chest x-ray shows tiny bilateral pleural effusion, no consolidation as per radiology report. Review of Systems CONSTITUTIONAL: No fever, no malaise, no fatigue. HEENT: No recent visual problems or hearing problems. Denied any sore throat. CARDIOVASCULAR: No orthopnea, PND, no palpitations, no syncope. PULMONARY: No shortness of breath, no cough, no hemoptysis. GASTROINTESTINAL: No diarrhea, no nausea, no vomiting, no abdominal pain. Normoactive bowel sounds. NEUROLOGICAL: No headaches, no weakness, no numbness. HEMATOLOGICAL: Denies any bleeding or petechiae. GENITOURINARY: Denies any burning micturition, frequency, or urgency. MUSCULOSKELETAL/RHEUMATOLOGICAL: Denies any joint pain, swelling, or any muscle pain. ENDOCRINE: Denies any polyuria or polydipsia. Past Medical History Past Medical History: Coronary Artery Disease (CAD), Chest Pain / Angina, GERD/ Reflux, Hyperlipidemia, Hypertension, Myocardial Infarction ([place]), Prostate Disorder Additional Past Medical History / Comment(s): "blurry vision getting worse last few months" Last Myocardial Infarction Date:: 2017 History of Any Multi-Drug Resistant Organisms: None Reported Past Surgical History: Heart Catheterization With Stent Additional Past Surgical History / Comment(s): stent x 2 - 6mo apart Past Anesthesia/Blood Transfusion Reactions: No Reported Reaction Date of Last Stent Placement:: ? -approx 15 yrs Smoking Status: Current every day smoker - Past Family History Father Family Medical History: Cancer, Coronary Artery Disease (CAD), CVA/TIA, Diabetes Mellitus Additional Family Medical History / Comment(s): bone cancer. father is Mother Family Medical History: Cancer Additional Family Medical History / Comment(s): lung cancer Medications and Allergies Home Medications Medication Instructions Recorded Confirmed Type Baclofen [Lioresal] 20 mg PO Q8H 07/18/17 12/20/17 History Ranitidine HCl [Zantac] 150 mg PO BID 07/18/17 12/20/17 History Tamsulosin HCl [Flomax] 0.4 mg PO DAILY 07/18/17 12/20/17 History Aspirin 81 mg PO DAILY #30 chew 07/19/17 12/20/17 Rx Nitroglycerin Sl Tabs [Nitrostat] 0.4 mg SUBLINGUAL Q5M PRN #30 tab 09/20/1704/28 Rx Ascorbic Acid [Vitamin C] 500 mg PO DAILY 12/19/17 12/20/17 History Atorvastatin [Lipitor] 40 mg PO DAILY #30 tab 12/20/17 Rx Hydrochlorothiazide [Hydrodiuril] 12.5 mg PO DAILY #30 cap 12/20/17 Rx Allergies Allergy/AdvReac Type Severity Reaction Status Date / Time IV DYE Allergy Rash/Hives Uncoded 12/20/17 00:31 Physical Exam Vitals: Vital Signs Temp Pulse Pulse Resp BP BP Pulse Ox 12/20/17 12:00 65 16 12/20/17 11:45 98.6 F 65 16 131/79 99 12/20/17 08:00 59 L 16 12/20/17 07:03 97.7 F 59 L 16 105/72 98 12/20/17 03:57 16 12/20/17 03:51 98.2 F 63 16 100/63 98 12/20/17 00:13 98.1 F 12/20/17 00:00 98.4 F 56 L 16 143/91 97 12/19/17 23:55 60 17 128/88 98 12/19/17 23:00 58 L 18 127/76 98 12/19/17 19:15 74 18 117/68 97 12/19/17 18:00 70 18 114/75 99 12/19/17 16:11 76 18 119/76 100 12/19/17 15:22 99.2 F 77 18 122/76 100 Intake and Output 12/19/17 12/20/17 12/20/17 22:59 06:59 14:59 Other: Voiding Method Toilet Toilet Weight 49.895 kg 49.895 kg GENERAL: The patient is alert and oriented x3, not in any acute distress. Well developed, well nourished. HEENT: Pupils are round and equally reacting to light. EOMI. No scleral icterus. No conjunctival pallor. Normocephalic, atraumatic. No pharyngeal erythema. No thyromegaly. -Patient has double vision on the right eye on lateral gaze, no apparent squints , no nystagmus CARDIOVASCULAR: S1 and S2 present. No murmurs, rubs, or gallops. PULMONARY: Chest is clear to auscultation, no wheezing or crackles. ABDOMEN: Soft, nontender, nondistended, normoactive bowel sounds. No palpable organomegaly. MUSCULOSKELETAL: No joint swelling or deformity. EXTREMITIES: No cyanosis, clubbing, or pedal edema. NEUROLOGICAL: Gross neurological examination did not reveal any focal deficits. SKIN: No rashes. Get up and go test is normal Results CBC & Chem 7: 12/19/17 14:03 12/19/17 14:03 Labs: Abnormal Lab Results - Last 24 Hours (Table) 12/19/17 12/19/17 Range/Units 14:03 14:03 Creatinine 0.50 L (0.66-1.25) mg/dL Total Creatine Kinase 50 L (55-170) U/L Thrombosis Risk Factor Assmnt - Choose All That Apply Each Factor Represents 1 point: Abnormal pulmonary function (COPD) Other Risk Factors: Yes Each Risk Factor Represents 2 Points: Age 61-74 years Other congenital or acquired thrombophilia - If yes, enter type in comment: No Thrombosis Risk Factor Assessment Total Risk Factor Score: 3 Thrombosis Risk Factor Assessment Level: Moderate Risk Assessment and Plan Assessment: Chest pain, CAD is been ruled out Blurred vision and diplopia, mainly on the right eye Weight loss, 13 pounds over 3-4 months Dizziness, last one was about 2 days ago Chronic lower back pain for years Plan: Continue with the same and treatment, continue with synthetic treatment. Cardiology has evaluated the patient . Medication was adjusted. Continue on aspirin, Lipitor and hydrochlorothiazide 12.5 mg daily. Patient has progressive blurred vision and diplopia on the right eye. Will call urology and ophthalmology for consults. We will do CT of the head as patient complaining of from headache at times with his eye symptoms. Patient also complained of some weight loss about 13 pounds over 3 months. Today he has good appetite and has finished his meal. He view of his blurred vision and weight loss was check hemoglobin A1c, thyroid-[facility], and liver function test. Patient PCP is Dr. langley and she is aware of his problem of weight loss as per patient. Further recommendation based on the test outcome, consults, and clinical course removed check postural vital DVT prophylaxis: Heparin, if CT of the head is negative GI Prophylaxis: Pepcid PT/OT: Pending Prognosis is guarded
--- NOTE | 2017-12-20 14:32 | CT ---
EXAMINATION TYPE: CT brain wo con DATE OF EXAM: 12/20/2017 COMPARISON: None HISTORY: Patient complains of blurry vision. CT DLP: 789.3 mGycm Automated exposure control for dose reduction was used. TECHNIQUE: CT scan of the head is performed without contrast. FINDINGS: There is no acute intracranial hemorrhage or midline shift identified. There is mild symm etric ventricular and sulcal prominence consistent with mild age-related cerebral atrophy. No suspic ious extra-axial fluid collection. There a few areas of low-attenuation in the periventricular white matter most commonly related to sequela of chronic small vessel ischemic change. There is mild athero sclerosis of the intracranial vasculature. The globes are intact and the visualized sinuses are diamond r. Cerumen is incidentally noted within the external auditory canals. No evidence of pituitary mass impressing upon the optic chiasm. Occipital lobes are unremarkable. Visualized globes appear grossly symmetric. IMPRESSION: No acute intracranial hemorrhage or midline shift. Mild supratentorial volume loss and f ew scattered areas of hypoattenuation likely on the basis of chronic microangiopathy.
[2017-12-20] MEDS ORDERED: methylPREDNISolone SOD SUCCI 125 MG/2 ML VIAL IV STA (16:43)
[2017-12-20] MEDS ORDERED: diphenhydrAMINE 50 MG/ML 1 ML VIAL IVP STA (16:43)
[2017-12-20] MEDS ORDERED: FAMOTIDINE 20 MG/2 ML VIAL IV STA (16:43)
[2017-12-20] MEDS: HYDROCHLOROTHIAZIDE 12.5 MG CAP PO SCH (17:02)
[2017-12-20] MEDS: SODIUM CHLORIDE 0.9% 1,000 ML IV SCH (17:02)
[2017-12-20] MEDS: ATORVASTATIN 40 MG TAB PO SCH (17:02)
[2017-12-20] MEDS: IOPAMIDOL-300 CONTRAST 30 ML VIAL (ORAL USE) PO PRN ×2 (17:07→17:57)
[2017-12-20] MEDS: HEPARIN SODIUM,PORCINE 5,000 UNIT/ML 1 ML VIAL SQ SCH ×2 (20:16→20:22)
--- NOTE | 2017-12-20 20:19 | P.CNNES ---
History of Present Illness Consult date: 12/20/17 History of Present Illness: The patient is a 67-year-old handed white male with multiple medical problems including coronary artery disease hypertension previous drug abuse and EtOH abuse is admitted to the hospital with chest pain. The patient has a history of blurred vision and double vision which is been present for a months He states lately over the past several months double visionhas been more prominent. He did see an law instructor 6 months ago prescribed glasses but he does not wear them. He denied any loss of vision. He denies any headache. He denied any focal weakness numbness vertigo or speech disturbance. he had a CT of the brain which did not show any acute abnormality. He does have some chronic microangiopathy. Review of Systems Constitutional: Denies chills, Denies fever Eyes: denies blurred vision, denies pain Ears, nose, mouth and throat: Denies headache, Denies sore throat Cardiovascular: Denies chest pain, Denies shortness of breath Musculoskeletal: Denies myalgias Integumentary: Denies pruritus, Denies rash Neurological: Denies numbness, Denies weakness Past Medical History Past Medical History: Coronary Artery Disease (CAD), Chest Pain / Angina, GERD/ Reflux, Hyperlipidemia, Hypertension, Myocardial Infarction ([place]), Prostate Disorder Additional Past Medical History / Comment(s): "blurry vision getting worse last few months" Last Myocardial Infarction Date:: 2017 History of Any Multi-Drug Resistant Organisms: None Reported Past Surgical History: Heart Catheterization With Stent Additional Past Surgical History / Comment(s): stent x 2 - 6mo apart Past Anesthesia/Blood Transfusion Reactions: No Reported Reaction Date of Last Stent Placement:: ? -approx 15 yrs Smoking Status: Current every day smoker - Past Family History Father Family Medical History: Cancer, Coronary Artery Disease (CAD), CVA/TIA, Diabetes Mellitus Additional Family Medical History / Comment(s): bone cancer. father is Mother Family Medical History: Cancer Additional Family Medical History / Comment(s): lung cancer Medications and Allergies Home Medications Medication Instructions Recorded Confirmed Type Baclofen [Lioresal] 20 mg PO Q8H 07/18/17 12/20/17 History Ranitidine HCl [Zantac] 150 mg PO BID 07/18/17 12/20/17 History Tamsulosin HCl [Flomax] 0.4 mg PO DAILY 07/18/17 12/20/17 History Aspirin 81 mg PO DAILY #30 chew 07/19/17 12/20/17 Rx Nitroglycerin Sl Tabs [Nitrostat] 0.4 mg SUBLINGUAL Q5M PRN #30 tab 09/20/1704/28 Rx Ascorbic Acid [Vitamin C] 500 mg PO DAILY 12/19/17 12/20/17 History Atorvastatin [Lipitor] 40 mg PO DAILY #30 tab 12/20/17 Rx Hydrochlorothiazide [Hydrodiuril] 12.5 mg PO DAILY #30 cap 12/20/17 Rx Allergies Allergy/AdvReac Type Severity Reaction Status Date / Time IV DYE Allergy Rash/Hives Uncoded 12/20/17 00:31 Physical Examination - Vital Signs Vital Signs: Vital Signs Temp Pulse Pulse Pulse Pulse Pulse Resp 12/20/17 16:00 65 67 74 61 16 12/20/17 15:41 67 74 61 16 12/20/17 12:00 65 16 12/20/17 11:45 98.6 F 65 16 12/20/17 08:00 59 L 16 12/20/17 07:03 97.7 F 59 L 16 12/20/17 03:57 16 12/20/17 03:51 98.2 F 63 16 12/20/17 00:13 98.1 F 12/20/17 00:00 98.4 F 56 L 16 12/19/17 23:55 60 17 12/19/17 23:00 58 L 18 BP BP BP BP BP Pulse Ox 12/20/17 16:00 12/20/17 15:41 113/76 121/86 108/78 98 12/20/17 12:00 12/20/17 11:45 131/79 99 12/20/17 08:00 12/20/17 07:03 105/72 98 12/20/17 03:57 12/20/17 03:51 100/63 98 12/20/17 00:13 12/20/17 00:00 143/91 97 12/19/17 23:55 128/88 98 12/19/17 23:00 127/76 98 Intake and Output 12/20/17 12/20/17 12/20/17 06:59 14:59 22:59 Intake Total 500 Balance 500 Intake: Oral 500 Other: Voiding Method Toilet Toilet Toilet # Voids 2 Weight 49.895 kg - Constitutional General appearance: cooperative, thin - EENT EENT: PERRL - Respiratory Respiratory: lungs clear - Cardiovascular Cardiovascular: regular rate, normal S1, normal S2 - Neurologic Mental status: He was awake alert and oriented. He answered questions appropriately. There is no aphasia or dysarthria. Cranial nerve examination: PERRL, EOMI, VFF, face symmetric, tongue midline, other (The patient has some double vision when looking downward to the right however this is variable and sometimes he sees double and then it resolves to normal vision. Using either eye takes away the double vision.) Speech examination: intact Sensorimotor examination: intact Detailed motor examination: grossly full strength in all extremities Results - Laboratory Findings CBC and BMP: 12/19/17 14:03 12/19/17 14:03 Abnormal Lab Findings: Abnormal Labs 12/19/17 12/19/17 14:03 14:03 Creatinine 0.50 L Total Creatine Kinase 50 L Assessment and Plan (1) Chest pain Current Visit: No Status: Acute Code(s): R07.9 - CHEST PAIN, UNSPECIFIED SNOMED Code(s): 34533087 (2) Blurred vision Current Visit: Yes Status: Acute SNOMED Code(s): 148186250 Plan: The patient is a 67-year-old man with history of multiple medical problems including coronary artery disease hyperlipidemia hypertension and previous drug abuse. The patient presents to the hospital with chest pain. Also he has some worsening blurry vision which she's had for months. On neurologic examination there is no focal abnormality. He has some intermittent double vision on right eyes downward gaze but this varies. The patient states that sometimes he sees double vision which resolves immediately. It is unclear whether his symptoms are more blurred vision. He will be seen by ophthalmology. He has had a CT of the brain which did show microangiopathy. He has multiple risk factors for stroke and he is currently on aspirin. Would recommend increase aspirin dose if tolerated to twice a day and also we'll check carotid ultrasound
--- NOTE | 2017-12-20 22:35 | CT ---
EXAMINATION TYPE: CT ChestAbdPelvis w con DATE OF EXAM: 12/20/2017 COMPARISON: None HISTORY: Weight loss. CT DLP: 438.3 mGycm Automated exposure control for dose reduction was used. CONTRAST: CT scan of the chest, abdomen and pelvis is performed with Oral Contrast and with IV Contrast, patien t injected with 100ml mL of Isovue 300. FINDINGS: AIRWAYS: Unremarkable. LUNGS: There is hyperinflation and scattered lung air cysts and subpleural blebs, consistent with emp hysematous changes. Lungs are clear and well expanded. PLEURAL SPACES: Negative. MEDIASTINUM: There are prominent left and right coronary calcifications, mild cardiomegaly and eviden ce of concentric left ventricular hypertrophy. Pericardial spaces negative There are no greater than 1 cm hilar or mediastinal lymph nodes. No pericardial effusion is seen. LIVER/GB: No significant abnormality is appreciated. PANCREAS: No significant abnormality is seen. SPLEEN: No significant abnormality is seen. ADRENALS: No significant abnormality is seen. KIDNEYS: No significant abnormality is seen. BOWEL: No significant abnormality is seen. REPRODUCTIVE ORGANS: No gross abnormality seen. LYMPH NODES: No greater than 1 cm abdominal or pelvic lymph nodes are appreciated. OSSEOUS STRUCTURES: No acute lesions. Old nonunited upper sternal fracture noted. VASCULATURE: The mesenteric vasculature is widely patent. Remainder of the vasculature unremarkable. IMPRESSION: 1. Emphysematous changes, with no focal lung lesions. 2. Prominent coronary calcifications, mild cardiomegaly, and evidence of concentric left ventricular hypertrophy.
[2017-12-21] MEDS: SODIUM CHLORIDE 0.9% 1,000 ML IV SCH (05:08)
[2017-12-21] MEDS: HYDROcodone/APAP 10-325MG 1 EACH TAB PO PRN (07:36)
[2017-12-21 07:53] LABS: Albumin 3.6 g/dL (3.5-5.0); Bilirubin, Delta 0.1 mg/dL (0.0-0.2); Bilirubin,Unconjugated 0.2 mg/dL (0.0-1.1); Total Bilirubin 0.3 mg/dL (0.2-1.3); Total Protein 6.1 g/dL (6.3-8.2)
[2017-12-21 08:50] VITALS: RESP 16
[2017-12-21] MEDS: ASPIRIN 81 MG PO SCH (09:11)
[2017-12-21] MEDS: FAMOTIDINE 20 MG TAB PO SCH (09:11)
[2017-12-21] MEDS: ATORVASTATIN 40 MG TAB PO SCH (09:11)
[2017-12-21] MEDS: HEPARIN SODIUM,PORCINE 5,000 UNIT/ML 1 ML VIAL SQ SCH (09:11)
[2017-12-21] MEDS: HYDROCHLOROTHIAZIDE 12.5 MG CAP PO SCH (09:12)
[2017-12-21 09:30] LABS: T4, Free (Free Thyroxine) 0.89 ng/dL (0.78-2.19)
[2017-12-21 10:19] LABS: Anion Gap 7 mmol/L; Blood Urea Nitrogen 24 mg/dL (9-20); Calcium 9.8 mg/dL (8.4-10.2); Carbon Dioxide 29 mmol/L (22-30); Chloride 105 mmol/L (98-107); Glucose 114 mg/dL (74-99); Potassium 5.6 mmol/L (3.5-5.1); Sodium 141 mmol/L (137-145)
--- NOTE | 2017-12-21 10:22 | US ---
EXAMINATION TYPE: US carotid duplex BILAT DATE OF EXAM: 12/21/2017 COMPARISON: NONE CLINICAL HISTORY: Double vision. EXAM MEASUREMENTS: RIGHT: Peak Systolic Velocity (PSV) cm/sec ----- Right CCA: 105.4 ----- Right ICA: 110.9 ----- Right ECA: 125.2 ICA/CCA ratio: 1.1 RIGHT: End Diastole cm/sec ----- Right CCA: 26.2 ----- Right ICA: 20.2 ----- Right ECA: 17.8 LEFT: Peak Systolic Velocity (PSV) cm/sec ----- Left CCA: 92.6 ----- Left ICA: 72.5 ----- Left ECA: 117.3 ICA/CCA ratio: 0.8 LEFT: End Diastole cm/sec ----- Left CCA: 20.9 ----- Left ICA: 21.1 ----- Left ECA: 16.7 VERTEBRALS (direction of flow): Right Vertebral: Antegrade Left Vertebral: Antegrade Minimal atherosclerotic changes. No significant velocity elevations Grayscale, color Doppler, spectral Doppler imaging performed of the carotid arteries. Waveform analys is does not show significant stenosis of the proximal internal carotid arteries. IMPRESSION: No hemodynamic significant stenosis of the proximal internal carotid arteries bilaterall y by Doppler criteria, an indirect measurement of carotid stenosis
[2017-12-21 10:44] LABS: HCT 43.6 % (39.0-53.0); HGB 13.9 gm/dL (13.0-17.5); MCH 31.7 pg (25.0-35.0); MCHC 31.9 g/dL (31.0-37.0); MCV 99.5 fL (80.0-100.0); Mean Platelet Volume 8.4; Platelet Count 319 k/uL (150-450); RBC 4.39 m/uL (4.30-5.90); RDW 13.7 % (11.5-15.5); WBC 8.6 k/uL (3.8-10.6)
[2017-12-21 12:13] LABS: Nucleated Red Blood Cells 0 /100 WBC (0-0)
[2017-12-21 12:14] LABS: Monocytes # (M) 0.26 k/uL (0-1.0); Neutrophils # (M) 7.83 k/uL (1.3-7.7); Neutrophils % (M) 91 %; Total Cells Counted 200
[2017-12-21 12:28] VITALS: BP 111/73; PULSE 74; TEMP 98.3
[2017-12-21 18:53] LABS: Hemoglobin A1C 5.3 % (4.0-6.0)
== END 2017-12-21 15:37 | disposition home or self-care (01) ==
LOC: EC 15:06 → 3OBS 17:13
PROVIDERS: ADMIT Internal Medicine; ATTEND Internal Medicine
DX: R07.89 Other chest pain (principal); R94.31 Abnormal electrocardiogram [ECG] [EKG]; H53.8 Other visual disturbances; H53.2 Diplopia; I25.10 Atherosclerotic heart disease of native coronary artery without angina pectoris; Z91.14 Patient's other noncompliance with medication regimen; I10 Essential (primary) hypertension; E78.5 Hyperlipidemia, unspecified; R51 Headache; F90.9 Attention-deficit hyperactivity disorder, unspecified type; F17.200 Nicotine dependence, unspecified, uncomplicated; R42 Dizziness and giddiness; K21.9 Gastro-esophageal reflux disease without esophagitis; N42.9 Disorder of prostate, unspecified; I34.0 Nonrheumatic mitral (valve) insufficiency; F10.10 Alcohol abuse, uncomplicated; I73.9 Peripheral vascular disease, unspecified; R63.4 Abnormal weight loss; R05 Cough; J90 Pleural effusion, not elsewhere classified; R63.0 Anorexia; J44.9 Chronic obstructive pulmonary disease, unspecified; G89.29 Other chronic pain; M54.5 Low back pain; I25.2 Old myocardial infarction; Z79.82 Long term (current) use of aspirin; Z79.899 Other long term (current) drug therapy; Z91.041 Radiographic dye allergy status; Z95.5 Presence of coronary angioplasty implant and graft; Z80.1 Family history of malignant neoplasm of trachea, bronchus and lung; Z87.898 Personal history of other specified conditions; Z82.3 Family history of stroke; Z83.3 Family history of diabetes mellitus; Z82.49 Family history of ischemic heart disease and other diseases of the circulatory system; Z80.8 Family history of malignant neoplasm of other organs or systems
CPT/HCPCS: 99285 ×2; 96374; 96375; 36415; 93005; 97161; 84439; 80053; 80048; 80076; 84443; 82550; 82553; 83690; 83735; 84484 ×2; 85025 ×2; 85610; 85730; 83036; 71046; 93880; 70450; 71260; 74177; G0378 ×3; J1200; J2930; Q9967

== ENCOUNTER 2019-03-15 02:29 | Emergency (ER) | payer MEDICARE, OTHER ==
[2019-03-15 02:53] VITALS: BP 177/92; PULSE 73; RESP 20
[2019-03-15] MEDS ORDERED: KETOROLAC 30 MG/ML 1 ML VIAL IM STA (03:31)
[2019-03-15] MEDS ORDERED: DIAZEPAM 5 MG/ML 2 ML INJ IM ONE (03:31)
--- NOTE | 2019-03-15 04:06 | XR ---
EXAM: XR Lumbar Spine, 2 or 3 Views CLINICAL HISTORY: ITS.REASON XR Reason: Back pain TECHNIQUE: Frontal and lateral views of the lumbar spine. COMPARISON: None. FINDINGS: Vertebrae: Minimal grade 1 retrolisthesis of L2 upon L3 vertebral body is noted. Sacrum/coccyx: Transitional anatomy is noted with lumbarization of S1 vertebral body. Disc spaces: Mild to moderate degenerative disc disease of the lumbar spine is noted. Vacuum disc is noted at the L2-3 level. Soft tissues: Unremarkable. Vasculature: Atherosclerotic disease of the abdominal aorta is noted. Atherosclerotic disease of the abdominal aorta is noted. IMPRESSION: Transitional anatomy. Degenerative disc disease. Magnetic resonance imaging may provide additional imaging, as deemed clinically necessary. No acute compression deformity.
[2019-03-15] MEDS ORDERED: ACET/COD 300 MG/30 MG STARTER PACK 6 TAB BTL PO STA (04:10)
--- NOTE | 2019-03-15 04:10 | ED ---
Back Pain HPI - General Chief Complaint: Back Pain/Injury Stated Complaint: Back injury Time Seen by Provider: 03/15/19 03:22 Source: patient Limitations: no limitations - History of Present Illness Initial Comments: 68 year-old male patient presents to the emergency department today for evaluation of increase in his usual low back pain. Patient states 2 days ago he was carrying heavy boxes up some stairs and he fell a snap in his back. Patient states this pain increased since that point. He denies any radiation of the pain down his legs. Denies any loss of bowel or bladder control. Denies any saddle anesthesia. Denies numbness or tingling to the lower extremities. He denies fever or chills with this. States that he is able to ambulate, but it causes increased pain to do so. He has been taking tylenol and motrin without much relief. He denies any fever or chills. States he does have degenerative disc disease and chronic low back pain, but this pain is different. He denies any chest pain, shortness of breath, abdominal pain, nausea, vomiting, constipation, or diarrhea. - Related Data Home Medications Medication Instructions Recorded Confirmed Baclofen [Lioresal] 20 mg PO Q8H 07/18/17 12/20/17 Ranitidine HCl [Zantac] 150 mg PO BID 07/18/17 12/20/17 Tamsulosin HCl [Flomax] 0.4 mg PO DAILY 07/18/17 12/20/17 Ascorbic Acid [Vitamin C] 500 mg PO DAILY 12/19/17 12/20/17 Previous Rx's Medication Instructions Recorded Aspirin 81 mg PO DAILY #30 chew 07/19/17 Nitroglycerin Sl Tabs [Nitrostat] 0.4 mg SUBLINGUAL Q5M PRN #30 tab 09/20/17 Atorvastatin [Lipitor] 40 mg PO DAILY #30 tab 12/20/17 Hydrochlorothiazide [Hydrodiuril] 12.5 mg PO DAILY #30 cap 12/20/17 Cyclobenzaprine [Flexeril] 10 mg PO TID #15 tab 03/15/19 Naproxen [EC-Naprosyn] 500 mg PO BID PRN #30 tablet. 03/15/19 Allergies Allergy/AdvReac Type Severity Reaction Status Date / Time IV DYE Allergy Rash/Hives Uncoded 07/12/18 00:31 Review of Systems ROS Statement: Those systems with pertinent positive or pertinent negative responses have been documented in the HPI. ROS Other: All systems not noted in ROS Statement are negative. Past Medical History Past Medical History: Chest Pain / Angina, Hyperlipidemia, Hypertension, Myocardial Infarction ([place]) Additional Past Medical History / Comment(s): "blurry vision getting worse last few months" Last Myocardial Infarction Date:: 2017 History of Any Multi-Drug Resistant Organisms: None Reported Past Surgical History: Heart Catheterization With Stent Additional Past Surgical History / Comment(s): stent x 2 - 6mo apart Past Anesthesia/Blood Transfusion Reactions: No Reported Reaction Date of Last Stent Placement:: ? -approx 15 yrs Past Psychological History: ADD/ADHD Smoking Status: Current every day smoker Past Alcohol Use History: Occasional Past Drug Use History: Cocaine, Methamphetamine - Past Family History Father Family Medical History: Cancer, CVA/TIA Additional Family Medical History / Comment(s): passed Mother Family Medical History: Cancer Additional Family Medical History / Comment(s): lung cancer General Exam Limitations: no limitations General appearance: alert, in no apparent distress, other Course Vital Signs 03/15/19 02:51 Temperature 97.3 F L Pulse Rate 73 Respiratory 20 Rate Blood Pressure 177/92 O2 Sat by Pulse 99 Oximetry Medical Decision Making - Medical Decision Making 68 year-old male patient presented to the emergency department today for evaluation of increased low back pain. Physical examination revealed good neurologic status. Good neurovascular status. He had no concerning symptoms for cauda equina. X-ray was obtained and showed degenerative changes. He'll be discharged home to follow-up with his primary care physician and discuss MRI of his symptoms do not improve. He is given anti-inflammatory medication and muscle relaxers. Return parameters discussed in detail. He verbalizes understanding and agrees with this plan. - Radiology Data Radiology results: report reviewed, image reviewed 3 views of the lumbar spine were obtained. Report was reviewed in its entirety. Impression by Dr. Allen shows transitional anatomy. Degenerative disc disease. Magnetic resonance imaging may provide additional imaging as deemed clinically necessary. No acute compression deformity. Disposition Clinical Impression: Acute low back pain Disposition: HOME SELF-CARE Condition: Good Instructions (If sedation given, give patient instructions): Acute Low Back Pain (ED) Additional Instructions: Follow up with primary care physician for recheck as soon as possible. Discuss need for MRI if symptoms persist. Take medications as directed. Return to the emergency department immediately for any new, worsening, or concerning symptoms. Prescriptions: Naproxen [EC-Naprosyn] 500 mg PO BID PRN #30 tablet.dr LEONE Reason: Pain Cyclobenzaprine [Flexeril] 10 mg PO TID #15 tab Is patient prescribed a controlled substance at d/c from ED?: No Referrals: Charleen Esparza MD [Primary Care Provider] - 1-2 days Time of Disposition: 04:09
[2019-03-15 04:16] VITALS: TEMP 97.3
== END 2019-03-15 04:25 | disposition home or self-care (01) ==
LOC: EC 02:29
DX: M51.36 Other intervertebral disc degeneration, lumbar region (principal); G89.29 Other chronic pain; M54.5 Low back pain; I10 Essential (primary) hypertension; I25.2 Old myocardial infarction; F17.200 Nicotine dependence, unspecified, uncomplicated; Z79.891 Long term (current) use of opiate analgesic; Z79.899 Other long term (current) drug therapy; Z91.041 Radiographic dye allergy status; X50.0XXA Overexertion from strenuous movement or load, initial encounter; Y93.89 Activity, other specified; Y92.009 Unspecified place in unspecified non-institutional (private) residence as the place of occurrence of the external cause
CPT/HCPCS: 72100; 99283; 96372 ×2; J3360; J1885

== ENCOUNTER 2022-01-20 10:01 | Day surgery (SDC) | payer MEDICARE ==
[2022-01-18 12:23] VITALS: BMI 19.5
[~2022-01-20 10:01] MED LIST: LACTATED RINGERS 1,000 ML IV SCH; LIDOCAINE 1% (10MG/ML) FOR IV START INTRADERMA PRN
[2022-01-20 10:31] VITALS: TEMP 97.1
[2022-01-20] MEDS ORDERED: GLYCOPYRROLATE 0.2 MG/ML 2 ML VIAL ONE (11:27)
[2022-01-20] MEDS ORDERED: PROPOFOL 10 MG/ML 20 ML VIAL IV ONE (11:27)
[2022-01-20] MEDS ORDERED: PHENYLEPHRINE-0.9% NACL SYG 1,000 MCG/10 ML SYRINGE ONE (11:27)
--- NOTE | 2022-01-20 11:55 | P.PCN ---
Date of Procedure: 01/20/22 Procedure(s) Performed: BRIEF HISTORY: Patient is a 71-year-old pleasant white male scheduled for an elective colonoscopy as a part of evaluation of intermittent rectal bleeding. PROCEDURE PERFORMED: Colonoscopy. PREOPERATIVE DIAGNOSIS: Intermittent rectal bleeding. IV sedation per Anesthesia. PROCEDURE: After informed consent was obtained, the patient, was brought into the endoscopy unit. IV sedation was administered by Anesthesia under continuous monitoring. Digital rectal examination was normal. Initially the Olympus CF-160 flexible video colonoscope was then inserted in the rectum, gradually advanced into the cecum without any difficulty. Careful examination was performed as the scope was gradually being withdrawn. Ileocecal valve and the appendiceal orifice were visualized and appeared normal. Prep was excellent. Mucosa of the cecum, ascending colon, appeared normal. In the transverse colon there was a 5 mm and 1 cm polyp removed by snare polypectomy. In the sigmoid colon there was a 1.2 cm polyp removed by snare polypectomy. Scattered sigmoid diverticulosis seen. The rest of the, sigmoid colon, and rectum appeared normal. Retroflexion was performed in the rectum and grade 2 internal were seen. The patient tolerated the procedure well. IMPRESSION: 5 mm and 1 cm transverse colon polyp status post polypectomy 1.2 cm sigmoid colon polyp status post polypectomy Scattered sigmoid diverticulosis Small internal hemorrhoids RECOMMENDATIONS: Findings of this examination were discussed with the patient as well as his family. He was advised to follow with the biopsy results. If the biopsy reveals adenoma he can have a repeat colonoscopy in 3 years..
[2022-01-20 12:00] VITALS: RESP 17
[2022-01-20 12:16] VITALS: BP 132/76; PULSE 73
== END 2022-01-20 12:27 | disposition home or self-care (01) ==
LOC: ORWHC2ENDO 10:01
PROVIDERS: ATTEND Internal Medicine Gastroenterology
DX: D12.5 Benign neoplasm of sigmoid colon (principal); D12.3 Benign neoplasm of transverse colon; K57.30 Diverticulosis of large intestine without perforation or abscess without bleeding; K64.8 Other hemorrhoids; I25.10 Atherosclerotic heart disease of native coronary artery without angina pectoris; I10 Essential (primary) hypertension; E78.5 Hyperlipidemia, unspecified; K21.9 Gastro-esophageal reflux disease without esophagitis; N40.0 Benign prostatic hyperplasia without lower urinary tract symptoms; I25.2 Old myocardial infarction; F17.200 Nicotine dependence, unspecified, uncomplicated; Z91.041 Radiographic dye allergy status; Z79.82 Long term (current) use of aspirin; Z79.899 Other long term (current) drug therapy; Z80.1 Family history of malignant neoplasm of trachea, bronchus and lung; Z82.3 Family history of stroke
CPT/HCPCS: 88305; 45385; J2370; J2704

== ENCOUNTER 2022-04-08 13:51 | Emergency (ER) | payer MEDICARE ==
--- NOTE | 2022-04-08 15:12 | US ---
EXAMINATION TYPE: US venous doppler duplex LE LT DATE OF EXAM: 04/08/2022 2:36 PM COMPARISON: NONE CLINICAL HISTORY: pain- no injury. Took aspirin today. No redness or swelling. Patient states the i nside of his leg looks bruised. SIDE PERFORMED: Left TECHNIQUE: The lower extremity deep venous system is examined utilizing real time linear array sonog jose with graded compression, doppler sonography and color-flow sonography. VESSELS IMAGED: Common Femoral Vein Deep Femoral Vein Greater Saphenous Vein * Femoral Vein Popliteal Vein Small Saphenous Vein * Proximal Calf Veins (* superficial vessels) Left Leg: Negative for DVT IMPRESSION: No evidence of deep vein thrombosis in the left leg.
--- NOTE | 2022-04-08 15:24 | ED ---
Extremity Problem HPI - General Chief complaint: Extremity Problem,Nontraumatic Stated complaint: pain in leg/poss clot Time Seen by Provider: 04/08/22 14:25 Source: patient, RN notes reviewed Mode of arrival: ambulatory Limitations: no limitations - History of Present Illness Initial comments: 71-year-old male presents emergency Department chief complaint of left leg cramping. Patient states he had one a few weeks ago and happened again last night states she's noticed an area of bruising on his left thigh. Patient states is not painful currently just sore. Patient denies any difficulty walking no back pain denies any bowel, bladder incontinence or retention no chest pain or shortness breath no history DVT. - Related Data Home Medications Medication Instructions Recorded Confirmed Tamsulosin HCl [Flomax] 0.4 mg PO DAILY 07/18/17 01/20/22 Buprenorphine HCl/Naloxone HCl 0.5 film SL BID 01/18/22 01/20/22 [Suboxone 8 mg-2 mg Sl Film] Ibuprofen [Motrin Ib] 800 mg PO Q8H PRN 01/18/22 01/20/22 Multivitamins, Thera [Multivitamin 1 tab PO DAILY 01/18/22 01/20/22 (formulary)] Omeprazole 20 mg PO QAM 01/18/22 01/20/22 Previous Rx's Medication Instructions Recorded Aspirin 81 mg PO DAILY #30 chew 07/19/17 Nitroglycerin Sl Tabs [Nitrostat] 0.4 mg SUBLINGUAL Q5M PRN #30 tab 09/20/17 Cyclobenzaprine [Flexeril] 5 mg PO TID PRN #15 tablet 04/08/22 Allergies Allergy/AdvReac Type Severity Reaction Status Date / Time IV DYE Allergy Rash/Hives Uncoded 01/20/22 10:25 Review of Systems ROS Statement: Those systems with pertinent positive or pertinent negative responses have been documented in the HPI. ROS Other: All systems not noted in ROS Statement are negative. Past Medical History Past Medical History: Chest Pain / Angina, GERD/Reflux, Hyperlipidemia, Hypertension, Myocardial Infarction ([place]), Prostate Disorder Additional Past Medical History / Comment(s): "Blurry vision, need glasses." Varicose veins. Last Myocardial Infarction Date:: 2017 History of Any Multi-Drug Resistant Organisms: None Reported Past Surgical History: Heart Catheterization With Stent Additional Past Surgical History / Comment(s): stent X2. Past Anesthesia/Blood Transfusion Reactions: No Reported Reaction Date of Last Stent Placement:: ? -approx 15 yrs Past Psychological History: ADD/ADHD, Anxiety, Bipolar, Depression Smoking Status: Current every day smoker Past Alcohol Use History: Occasional Past Drug Use History: Cocaine, Marijuana, Methamphetamine - Past Family History Father Family Medical History: Cancer, CVA/TIA Additional Family Medical History / Comment(s): . Mother Family Medical History: Cancer Additional Family Medical History / Comment(s): Lung cancer. Brother(s) Family Medical History: Cancer Additional Family Medical History / Comment(s): Lung Cancer. General Exam Limitations: no limitations General appearance: alert, in no apparent distress Head exam: Present: atraumatic, normocephalic, normal inspection Respiratory exam: Present: normal lung sounds bilaterally. Absent: respiratory distress, wheezes, rales, rhonchi, stridor Cardiovascular Exam: Present: regular rate, normal rhythm, normal heart sounds. Absent: systolic murmur, diastolic murmur, rubs, gallop, clicks Extremities exam: Present: other (Pulses equal bilaterally lower extremity, there is small area ecchymosis to left thigh, full range of motion full- strength) Skin exam: Present: warm, dry, intact, normal color. Absent: rash Course Vital Signs 04/08/22 14:07 Temperature 98.2 F Pulse Rate 70 Respiratory 20 Rate Blood Pressure 135/78 O2 Sat by Pulse 98 Oximetry Medical Decision Making - Medical Decision Making 8 male presented for left leg pain negative ultrasound for DVT. Patient has spasm to the left leg which has resolved. Patient we discharged in stable condition return parameters were discussed. Disposition Clinical Impression: Muscle spasm of left lower extremity, Left thigh pain Disposition: HOME SELF-CARE Condition: Stable Instructions (If sedation given, give patient instructions): Muscle Spasm (ED) Additional Instructions: Please return to the Emergency Department if symptoms worsen or any other concerns. Prescriptions: Cyclobenzaprine [Flexeril] 5 mg PO TID PRN #15 tablet PRN Reason: Muscle Spasm Is patient prescribed a controlled substance at d/c from ED?: No Referrals: Charleen Esparza MD [Primary Care Provider] - 1-2 days Time of Disposition: 15:24
[2022-04-08 15:26] VITALS: RESP 16
[2022-04-08 15:51] VITALS: BP 129/95; PULSE 67; TEMP 98.7
== END 2022-04-08 15:51 | disposition home or self-care (01) ==
LOC: EC 13:51
DX: M79.652 Pain in left thigh (principal); K21.9 Gastro-esophageal reflux disease without esophagitis; E78.5 Hyperlipidemia, unspecified; I10 Essential (primary) hypertension; I21.9 Acute myocardial infarction, unspecified; F17.200 Nicotine dependence, unspecified, uncomplicated; Z79.83 Long term (current) use of bisphosphonates; Z79.899 Other long term (current) drug therapy
CPT/HCPCS: 99283

== ENCOUNTER 2022-05-31 11:27 | Day surgery (SDC) | payer MEDICARE ==
[~2022-05-31 11:27] MED LIST changes: -LACTATED RINGERS 1,000 ML IV SCH
[2022-05-31 12:32] VITALS: TEMP 97.5
[2022-05-31] MEDS: LACTATED RINGERS 1,000 ML IV SCH ×2 (12:35→13:20)
[2022-05-31] MEDS ORDERED: ePHEDrine 50 MG/ML 1 ML VIAL ONE (13:21)
[2022-05-31] MEDS ORDERED: PROPOFOL 10 MG/ML 20 ML VIAL IV ONE (13:21)
--- NOTE | 2022-05-31 13:31 | P.PCN ---
Date of Procedure: 05/31/22 Procedure(s) Performed: BRIEF HISTORY: Patient is a 71-year-old, pleasant, white male scheduled for an upper endoscopy as a part of evaluation of intermittent dysphagia to solids for the last 4 months duration.. PROCEDURE PERFORMED: Esophagogastroduodenoscopy. PREOPERATIVE DIAGNOSIS: Dysphagia to solids of 3 months duration. IV sedation per anesthesia. PROCEDURE: After informed consent was obtained, the patient was brought into the endoscopy unit. IV sedation was administered by Anesthesia under continuous monitoring. Initially the Olympus GIF-140 video endoscope was inserted into the mouth. Esophagus intubated without any difficulty. It was gradually advanced into the stomach and duodenum and carefully examined. The bulb and the second part of the duodenum appeared normal. The scope at this time was withdrawn to the stomach, adequately insufflated with air, and upon careful examination, mucosa of the antrum, body, cardia and the fundus appeared normal. The scope was then withdrawn into the esophagus. The GE junction was located at 39 cm from the incisors. Small sliding type hiatal hernia noted. The esophagus appeared normal. There were no erosions or ulcerations seen and no evidence of esophageal stricture. Biopsies were done from the mid and distal esophagus and the patient tolerated the procedure well. IMPRESSION: 1. Normal-appearing esophagus with no evidence of esophagitis or esophageal stricture. 2. Small hiatal hernia. RECOMMENDATIONS: The findings of this examination were discussed with the patient as well as his family. He was advised to follow with the biopsy results.. Continue with omeprazole 20 mg daily. If he continues to have persistent dysphagia he will need an esophageal manometry to evaluate for esophageal dysmotility.
[2022-05-31 13:54] VITALS: RESP 18
[2022-05-31 14:08] VITALS: BP 116/79; PULSE 80
== END 2022-05-31 14:29 | disposition home or self-care (01) ==
LOC: ORWHC2ENDO 11:27
PROVIDERS: ATTEND Internal Medicine Gastroenterology
DX: K44.9 Diaphragmatic hernia without obstruction or gangrene (principal); K21.9 Gastro-esophageal reflux disease without esophagitis; I25.10 Atherosclerotic heart disease of native coronary artery without angina pectoris; I10 Essential (primary) hypertension; E78.5 Hyperlipidemia, unspecified; F17.200 Nicotine dependence, unspecified, uncomplicated; F90.9 Attention-deficit hyperactivity disorder, unspecified type; N42.9 Disorder of prostate, unspecified; F41.9 Anxiety disorder, unspecified; F32.A Depression, unspecified; Z79.899 Other long term (current) drug therapy; Z91.041 Radiographic dye allergy status
CPT/HCPCS: 43239; 88305

== ENCOUNTER 2023-09-06 09:55 | Inpatient (IN) | payer MEDICARE ==
[2023-09-06] MEDS ORDERED: VERAPAMIL 2.5 MG/ML 2 ML AMP ONE (10:02)
[2023-09-06] MEDS ORDERED: HEPARIN SODIUM 1,000 UN/ML (10ML VL) ONE (10:02)
[2023-09-06] MEDS ORDERED: LIDOCAINE 1% INJ 10MG/ML (20 ML MDV) ONE (10:02)
--- NOTE | 2023-09-06 10:17 | XR ---
EXAMINATION TYPE: XR chest 1V portable DATE OF EXAM: 09/06/2023 COMPARISON: 12/19/2017 HISTORY: Chest pain TECHNIQUE: Single frontal view of the chest is obtained. FINDINGS: There is no focal air space opacity, pleural effusion, or pneumothorax seen. The cardiac silhouette size is within normal limits. The osseous structures are intact. Underlying emphysematou s changes. Diffuse osteopenia with AC joint arthropathy. Left basilar subsegmental consolidation. Vag ue nodular density right midlung may be related to superimposed structures. IMPRESSION: 1. Left basilar atelectasis. COPD 2. There is a vague density overlying the right mid lung may be related to superimposed structures. S mall pulmonary nodule in the differential diagnosis.
[2023-09-06 10:21] LABS: Basophils # (A) 0.1 k/uL (0-0.2); Basophils % (A) 1 %; Eosinophils # (A) 0.3 k/uL (0-0.7); Eosinophils % (A) 4 %; HCT 37.6 % (39.0-53.0); HGB 12.7 gm/dL (13.0-17.5); Lymphocytes # (A) 1.6 k/uL (1.0-4.8); Lymphocytes % (A) 25 %; MCH 32.9 pg (25.0-35.0); MCHC 33.8 g/dL (31.0-37.0); MCV 97.5 fL (80.0-100.0); Mean Platelet Volume 8.7; Monocytes # (A) 0.5 k/uL (0-1.0); Monocytes % (A) 7 %; Neutrophils # (A) 3.8 k/uL (1.3-7.7); Neutrophils % (A) 58 %; Platelet Count 213 k/uL (150-450); RBC 3.86 m/uL (4.30-5.90); RDW 13.8 % (11.5-15.5); WBC 6.4 k/uL (3.8-10.6)
[2023-09-06] MEDS: HEPARIN SODIUM 1,000 UN/ML (10ML VL) IV ONE (10:27)
[2023-09-06] MEDS: HEPARIN SOD,PORK IN 0.45% NACL 25,000 UNIT in 0.45% NACL 1 250ML.BAG IV SCH (10:28)
[2023-09-06] MEDS: methylPREDNISolone SOD SUCCI 125 MG/2 ML VIAL IV STA (10:29)
[2023-09-06] MEDS: SODIUM CHLORIDE 0.9% 1,000 ML IV STA (10:29)
[2023-09-06 10:30] LABS: ALT 16 U/L (4-49); AST 34 U/L (17-59); African American GFR (CKD) >90 (>60 ml/min/1.73 sqM); Alkaline Phosphatase 49 U/L (38-126); Anion Gap 11 mmol/L; Blood Urea Nitrogen 16 mg/dL (9-20); Carbon Dioxide 22 mmol/L (22-30); Chloride 106 mmol/L (98-107); Glucose 104 mg/dL (74-99); Lipase 36 U/L (23-300); Magnesium 1.7 mg/dL (1.6-2.3); Non-African American GFR(CKD) >90 (>60 ml/min/1.73 sqM); Potassium 4.4 mmol/L (3.5-5.1); Sodium 139 mmol/L (137-145); Total Bilirubin 0.5 mg/dL (0.2-1.3); Total Protein 6.8 g/dL (6.3-8.2)
[2023-09-06 10:38] LABS: NT-Pro-B-Type Natriuretic Pept 3440 pg/mL
[2023-09-06 10:47] LABS: Prothrombin Time 10.7 sec (10.0-12.5)
[2023-09-06 10:48] LABS: Partial Thromboplastin Time 23.5 sec (22.0-30.0)
[2023-09-06] MEDS ORDERED: NALOXONE 0.4 MG/ML 1 ML VIAL IV PRN (11:37)
--- NOTE | 2023-09-06 11:41 | ED ---
General Adult HPI - General Chief complaint: Chest Pain Stated complaint: chest pain Time Seen by Provider: 09/06/23 09:57 Source: patient, RN notes reviewed, old records reviewed Mode of arrival: EMS Limitations: no limitations - History of Present Illness Initial comments: Patient is a 73-year-old male who presents emergency department for chest pain, shortness of breath. States he awoke this morning with those complaints. Has a history of [place] as well as COPD. Has 1 prior stent. Patient was called ahead by EMS and sent a EKG.. He was having a possible STEMI as he had some ST segment elevations in aVR as well as V1 with diffuse reciprocal ST segment depressions in the inferior and lateral leads. No prior EKG was available at that time for comparison. STEMI pager was activated prior to arrival. Upon arrival, patient was complaining of resolved chest pain after nitro. He is still plaint complaining of some mild shortness of breath. States that when he had the chest pain it was a tightness over the left side of his chest which is since resolved. Started suddenly earlier today. Denies any other complaints. Denies nausea or vomiting. Denies any significant ears, chills, cough. Presents for further evaluation at this time. Is not normally on oxygen. - Related Data Home Medications Medication Instructions Recorded Confirmed Tamsulosin HCl [Flomax] 0.4 mg PO DAILY 07/18/17 09/06/23 Buprenorphine HCl/Naloxone HCl 0.5 film SL BID 01/18/22 09/06/23 [Suboxone 8 mg-2 mg Sl Film] Ibuprofen [Motrin Ib] 800 mg PO Q8H PRN 01/18/22 09/06/23 Multivitamins, Thera [Multivitamin 1 tab PO DAILY 01/18/22 09/06/23 (formulary)] Omeprazole 20 mg PO DAILY 01/18/22 09/06/23 Acetaminophen Tab [Tylenol Tab] 1,000 mg PO Q6HR PRN 05/31/22 09/06/23 Albuterol Inhaler [Ventolin Hfa 2 puff INHALATION RT-Q6H PRN 09/06/23 09/06/23 Inhaler] Dicyclomine [Bentyl] 10 mg PO TID PRN 09/06/23 09/06/23 buPROPion XL [Wellbutrin XL] 150 mg PO DAILY 09/06/23 09/06/23 busPIRone HCl [Buspar] 10 mg PO TID PRN 09/06/23 09/06/23 Previous Rx's Medication Instructions Recorded Aspirin 81 mg PO DAILY #30 chew 07/19/17 Nitroglycerin Sl Tabs [Nitrostat] 0.4 mg SUBLINGUAL Q5M PRN #30 tab 09/20/17 Allergies Allergy/AdvReac Type Severity Reaction Status Date / Time IV DYE Allergy Rash/Hives Uncoded 09/06/23 11:13 Review of Systems ROS Statement: Those systems with pertinent positive or pertinent negative responses have been documented in the HPI. Review of Systems: CONST: Denies fever EYES: Denies blurry vision ENT: Denies nasal congestion C/V: Endorses chest pain RESP: Denies shortness of breath GI: Denies abdominal pain : Denies dysuria SKIN: Denies rash. MSK: Denies joint pain. NEURO: Denies headache ROS Other: All systems not noted in ROS Statement are negative. Past Medical History Past Medical History: Chest Pain / Angina, GERD/Reflux, Hyperlipidemia, Hypertension, Myocardial Infarction ([place]), Prostate Disorder Additional Past Medical History / Comment(s): "Blurry vision, need glasses." Varicose veins. Last Myocardial Infarction Date:: 2017 History of Any Multi-Drug Resistant Organisms: None Reported Past Surgical History: Heart Catheterization With Stent Additional Past Surgical History / Comment(s): stent X2. HEMORROIDECTOMY. PROSTATE SURGERY, BPH. COLONOSCOPY Past Anesthesia/Blood Transfusion Reactions: No Reported Reaction Date of Last Stent Placement:: ? -approx 15 yrs Past Psychological History: ADD/ADHD, Anxiety, Bipolar, Depression Smoking Status: Current every day smoker Past Alcohol Use History: Occasional Past Drug Use History: Cocaine, Marijuana, Methamphetamine - Past Family History Father Family Medical History: Cancer, CVA/TIA Additional Family Medical History / Comment(s): . Mother Family Medical History: Cancer Additional Family Medical History / Comment(s): Lung cancer. Brother(s) Family Medical History: Cancer Additional Family Medical History / Comment(s): Lung Cancer. General Exam - General Exam Comments Initial Comments: General: Appears in no acute distress. HEAD: Normal with no signs of head trauma. EYES: PERRLA, EOMI, conjunctiva normal, no discharge. ENT: Hearing grossly intact, normal oropharynx. RESPIRATORY: Reduced breath sounds bilaterally with end expiratory wheezing. No significant hypoxia at this time. No obvious rhonchi. C/V: Regular rate and rhythm. S1 and S2 auscultated, no edema, peripheral pulses 2+ and intact throughout ABD: Abd is soft, nontender, nondistended EXT: Normal range of motion, no obvious deformity SKIN: No rashes or lesions observed on exposed skin. NEURO: Alert and oriented x 4. Limitations: no limitations Course Vital Signs 09/06/23 09/06/23 09/06/23 09:57 10:32 11:59 Temperature 97.7 F Pulse Rate 73 64 61 Respiratory 16 16 Rate Blood Pressure 135/91 100/66 O2 Sat by Pulse 97 99 99 Oximetry 09/06/23 09/06/23 09/06/23 12:00 12:17 13:11 Temperature Pulse Rate 63 71 88 Respiratory 16 16 Rate Blood Pressure 126/82 O2 Sat by Pulse 100 Oximetry Medical Decision Making - Medical Decision Making Was pt. sent in by a medical professional or institution (Dr. PA, PRINT LINE OPERATOR, urgent care, hospital, or long-term...) When possible be specific @ -No Did you speak to anyone other than the patient for history (EMS, parent, family, police, friend...)? What history was obtained from this source @ -EMS provided initial EKG and found the patient with chest pain. Did you review nursing and triage notes (agree or disagree)? Why? @ -I reviewed and agree with nursing and triage notes Were old charts reviewed (outside hosp., previous admission, EMS record, old EKG, old radiological studies, urgent care reports/EKG's, long-term records)? Report findings @ -Old charts reviewed Differential Diagnosis (chest pain, altered mental status, abdominal pain women, abdominal pain men, vaginal bleeding, weakness, fever, dyspnea, syncope, headache, dizziness, GI bleed, back pain, seizure, CVA, palpatations, mental health, musculoskeletal)? @ -Differential Chest Pain: Stable Angina, Unstable Angina, STEMI, NSTEMI Aortic Dissection, Pneumothorax, Musculoskeletal, Esophageal Spasm GERD, Cholecystitis, Pancreatitis, Zoster, this is not meant to be an all-inclusive list. EKG interpreted by me (3pts min.). @ -As above X-rays interpreted by me (1pt min.). @ -Chest x-ray reveals no obvious acute cardiopulmonary process. Possible pulmonary nodule which the patient was made aware of. CT interpreted by me (1pt min.). @ -None done U/S interpreted by me (1pt. min.). @ -None done What testing was considered but not performed or refused? (CT, X-rays, U/S, labs)? Why? @ -None What meds were considered but not given or refused? Why? @ -None Did you discuss the management of the patient with other professionals (professionals i.e. DrLora, PA, PRINT LINE OPERATOR, lab, RT, psych nurse, long term care social worker, separator inserter, teacher, multisensor intelligence officer, piano case and bench assembler)? Give summary @ -Discussed with Dr. Boothe as the patient initially was a STEMI activation but was then canceled. Initial EKG was concerning but upon review with prior EKGs, believe it is more or less left ventricular hypertrophy. STEMI activation was canceled. Dr. Boothe recommended serial troponins, initiation of heparin drip. Patient is currently asymptomatic. I spoke with the admitting physician, Dr. Lopez who accepted the admission. Was smoking cessation discussed for >3mins.? @ -No Was critical care preformed (if so, how long)? @ -Yes, 35 minutes Were there social determinants of health that impacted care today? How? (Homelessness, low income, unemployed, alcoholism, drug addiction, transportation, low edu. Level, literacy, decrease access to med. care, custodial, rehab)? @ -No Was there de-escalation of care discussed even if they declined (Discuss DNR or withdrawal of care, Hospice)? DNR status @ -No What co-morbidities impacted this encounter? (DM, HTN, Smoking, COPD, CAD, Cancer, CVA, ARF, Chemo, Hep., AIDS, mental health diagnosis, sleep apnea, morbid obesity)? @ -COPD, CAD with stenting Was patient admitted / discharged? Hospital course, mention meds given and route, prescriptions, significant lab abnormalities, going to OR and other pertinent info. @ -Based on the patient's presentation and physical exam, patient presents emergency department as a STEMI activation which was then canceled after evaluation by myself and Dr. Boothe in evaluating EKG. Dr. Boothe was in agreement the plan for serial troponins as well as initiation of heparin drip. EKG appears more likely secondary to ventricular hypertrophy. Patient was in agreement this plan. He has no obvious acute chest pain at this time. I do believe he is having a COPD exacerbation as well. We will initiate steroids as well as breathing treatments for the COPD. Patient was in agreement this plan. Vital signs within acceptable limits. Patient received aspirin prior to arrival as well as 1 nitro. Chest x-ray showed no obvious acute cardiopulmonary process. There is a possible pulmonary nodule which the patient was made aware of. Labs are remark able for an elevated troponin of 0.102. BNP is 3400. Viral swabs negative. Patient was already initiated on a heparin drip. He was informed of his workup. He will be admitted at this time. Patient was in agreement this plan. I spoke with the admitting physician, Dr. Lopez who accepted the admission. Undiagnosed new problem with uncertain prognosis? @ -No Drug Therapy requiring intensive monitoring for toxicity (Heparin, Nitro, Insulin, Cardizem)? @ -Heparin Were any procedures done? @ -No Diagnosis/symptom? @ -NSTEMI, COPD exacerbation Acute, or Chronic, or Acute on Chronic? @ -Acute Uncomplicated (without systemic symptoms) or Complicated (systemic symptoms)? @ -Complicated Side effects of treatment? @ -No Exacerbation, Progression, or Severe Exacerbation? @ -No Poses a threat to life or bodily function? How? (Chest pain, [place], [place], pneumonia, PE, COPD, DKA, ARF, appy, cholecystitis, CVA, Diverticulitis, Homicidal, Suicidal, threat to staff... and all critical care pts) @ -Yes - Lab Data Result diagrams: 09/06/23 10:04 09/06/23 10:04 Lab Results 09/06/23 09/06/23 09/06/23 Range/Units 10:04 10:04 10:04 WBC 6.4 (3.8-10.6) k/uL RBC 3.86 L (4.30-5.90) m/uL Hgb 12.7 L (13.0-17.5) gm/dL Hct 37.6 L (39.0-53.0) % MCV 97.5 (80.0-100.0) fL MCH 32.9 (25.0-35.0) pg MCHC 33.8 (31.0-37.0) g/dL RDW 13.8 (11.5-15.5) % Plt Count 213 (150-450) k/uL MPV 8.7 Neutrophils % 58 % Lymphocytes % 25 % Monocytes % 7 % Eosinophils % 4 % Basophils % 1 % Neutrophils # 3.8 (1.3-7.7) k/uL Lymphocytes # 1.6 (1.0-4.8) k/uL Monocytes # 0.5 (0-1.0) k/uL Eosinophils # 0.3 (0-0.7) k/uL Basophils # 0.1 (0-0.2) k/uL PT 10.7 (10.0-12.5) sec INR 1.0 (<1.2) APTT 23.5 (22.0-30.0) sec Sodium 139 (137-145) mmol/L Potassium 4.4 (3.5-5.1) mmol/L Chloride 106 (98-107) mmol/L Carbon Dioxide 22 (22-30) mmol/L Anion Gap 11 mmol/L BUN 16 (9-20) mg/dL Creatinine 0.68 (0.66-1.25) mg/dL Est GFR (CKD-EPI)AfAm >90 (>60 ml/min/1.73 sqM) Est GFR (CKD-EPI)NonAf >90 (>60 ml/min/1.73 sqM) Glucose 104 H (74-99) mg/dL Calcium 9.0 (8.4-10.2) mg/dL Magnesium 1.7 (1.6-2.3) mg/dL Total Bilirubin 0.5 (0.2-1.3) mg/dL AST 34 (17-59) U/L ALT 16 (4-49) U/L Alkaline Phosphatase 49 (38-126) U/L Troponin I (0.000-0.034) ng/mL NT-Pro-B Natriuret Pep 3440 pg/mL Total Protein 6.8 (6.3-8.2) g/dL Albumin 4.0 (3.5-5.0) g/dL Lipase 36 (23-300) U/L Influenza Type A (PCR) (Not Detectd) Influenza Type B (PCR) (Not Detectd) RSV (PCR) (Not Detectd) SARS-CoV-2 (PCR) (Not Detectd) 09/06/23 09/06/23 Range/Units 10:04 10:05 WBC (3.8-10.6) k/uL RBC (4.30-5.90) m/uL Hgb (13.0-17.5) gm/dL Hct (39.0-53.0) % MCV (80.0-100.0) fL MCH (25.0-35.0) pg MCHC (31.0-37.0) g/dL RDW (11.5-15.5) % Plt Count (150-450) k/uL MPV Neutrophils % % Lymphocytes % % Monocytes % % Eosinophils % % Basophils % % Neutrophils # (1.3-7.7) k/uL Lymphocytes # (1.0-4.8) k/uL Monocytes # (0-1.0) k/uL Eosinophils # (0-0.7) k/uL Basophils # (0-0.2) k/uL PT (10.0-12.5) sec INR (<1.2) APTT (22.0-30.0) sec Sodium (137-145) mmol/L Potassium (3.5-5.1) mmol/L Chloride (98-107) mmol/L Carbon Dioxide (22-30) mmol/L Anion Gap mmol/L BUN (9-20) mg/dL Creatinine (0.66-1.25) mg/dL Est GFR (CKD-EPI)AfAm (>60 ml/min/1.73 sqM) Est GFR (CKD-EPI)NonAf (>60 ml/min/1.73 sqM) Glucose (74-99) mg/dL Calcium (8.4-10.2) mg/dL Magnesium (1.6-2.3) mg/dL Total Bilirubin (0.2-1.3) mg/dL AST (17-59) U/L ALT (4-49) U/L Alkaline Phosphatase (38-126) U/L Troponin I 0.102 H* (0.000-0.034) ng/mL NT-Pro-B Natriuret Pep pg/mL Total Protein (6.3-8.2) g/dL Albumin (3.5-5.0) g/dL Lipase (23-300) U/L Influenza Type A (PCR) Not Detected (Not Detectd) Influenza Type B (PCR) Not Detected (Not Detectd) RSV (PCR) Not Detected (Not Detectd) SARS-CoV-2 (PCR) Not Detected (Not Detectd) - EKG Data -: EKG Interpreted by Me EKG Comments: 12-lead Electrocardiogram Interpretation Note EKG was reviewed and interpreted by myself. 12-lead ECG performed at 0957 is interpreted by me as revealing [normal sinus rhythm] at a rate of 74 beats per minute. [place] is normal. RI interval is 152 milliseconds, QRS duration is 97 ms, QTc is 416 ms. Slight elevation in leads aVR and V1 seen on prior EKGs as well as T wave inversion with mild ST segment depressions in the inferior leads as well as lateral precordial leads which seems to be more or less chronic. Could be as a result of left ventricular hypertrophy... Reviewed EKG with Dr. Boothe of cardiology as soon as it was completed at 957. He was in agreement with this evaluation... Both compared to prior EKGs. Critical Care Time Critical Care Time: Yes Total Critical Care Time: 35 Disposition Clinical Impression: NSTEMI (non-ST elevated myocardial infarction), COPD (chronic obstructive pulmonary disease) Disposition: ADMITTED IP TO THIS HOSP Condition: Serious Time of Disposition: 11:40
[2023-09-06] MEDS: IPRATROPIUM-ALBUTEROL 3 ML NEB INHALATION STA (11:59)
[2023-09-06] MEDS ORDERED: ALBUTEROL NEBULIZED 2.5 MG/3 ML INHALATION PRN (14:05)
[2023-09-06] MEDS ORDERED: NITROGLYCERIN SL TABS 0.4 MG TAB SUBLINGUAL PRN (14:05)
--- NOTE | 2023-09-06 14:26 | P.CRDCN ---
History of Present Illness Consult date: 09/06/23 Reason for Consult (text): STEMI call History of present illness: History of present illness: This is a 73-year-old male patient of Dr. Jolly with a past medical history of COPD, hypertension, hyperlipidemia, gastroesophageal reflux disease, coronary artery disease status post PCI of the LAD about 17 years ago, tobacco use and dependence, moderate mitral digitation, prior history of cocaine abuse. Patient was brought in by EMS called as a ST elevated [place]. Patient presented with left- sided chest pain and shortness of breath that started in the morning. Patient did have some tenderness to the chest wall. No fever or chills, no cough. Initial blood pressure 135/91 heart rate 73. Patient was last seen in the office with Dr. Jolly on 10/18/2020 and plan was for Lexiscan stress test which does not appear the patient completed. EKG sinus rhythm, left ventricular hypertrophy Chest x-ray: Left basilar atelectasis. COPD. Vague density over the right midlung may be related to superimposed structures. Small pulmonary nodule in the differential diagnosis. WBC 6.4, hemoglobin 12.7, platelet count 213. INR 1. Electrolytes and renal function are all normal. Glucose 104. Magnesium 1.7. Liver function test are normal. Troponin 0.102. proBNP 3440. Home cardiac medications: Aspirin 81 mg daily, nitroglycerin 0.4 mg as needed Echocardiogram performed at [facility] and 2020 revealed EF of 60%, severe concentric left trickle hypertrophy, aortic valve calcification without stenosis, mild aortic regurgitation and moderate mitral digitation. Review Of Systems: At the time of my exam: CONSTITUTIONAL: Denies fever or chills. HEENT: Denies blurred vision, vision changes, or eye pain. Denies hemoptysis CARDIOVASCULAR: Reports chest pain. Denies orthopnea. Denies PND. Denies palpitations RESPIRATORY: Reports mild shortness of breath. GASTROINTESTINAL: Denies abdominal pain. Denies nausea or vomiting. HEMATOLOGIC: Denies bleeding disorders. GENITOURINARY: Denies any blood in urine. SKIN: Denies pruitis. Denies rash. Physical examination: Gen: This is a thin cachectic appearing 73-year-old male in no acute respiratory distress. VS: reviewed HEENT: Head is atraumatic, normocephalic. Pupils equal, round. Sclerae is anicteric. NECK: Supple. No JVD. LUNGS: Diminished breath sounds bilaterally. No intercostal retractions. HEART: Regular rate and rhythm. No murmur. ABDOMEN: Soft No tenderness. EXTREMITIES: No pedal edema. No calf tenderness. NEUROLOGICAL: Patient is awake, alert and oriented x3. Assessment: Atypical chest pain COPD exacerbation Hypertension History of coronary artery disease with previous stent of the LAD Plan: Resume patient's home cardiac medications Patient to be started on heparin drip, repeat troponins Obtain 2-D echocardiogram and Doppler study to assess cardiac structure and function Smoking cessation Further recommendations to follow based upon clinical course Thank you kindly for this consultation. Nurse practitioner note has been reviewed, I agree with documented findings and plan of care. Patient was seen and examined. Past Medical History Past Medical History: Chest Pain / Angina, GERD/Reflux, Hyperlipidemia, Hypertension, Myocardial Infarction ([place]), Prostate Disorder Additional Past Medical History / Comment(s): "Blurry vision, need glasses." Varicose veins. Last Myocardial Infarction Date:: 2017 History of Any Multi-Drug Resistant Organisms: None Reported Past Surgical History: Heart Catheterization With Stent Additional Past Surgical History / Comment(s): stent X2. HEMORROIDECTOMY. PROSTATE SURGERY, BPH. COLONOSCOPY Past Anesthesia/Blood Transfusion Reactions: No Reported Reaction Date of Last Stent Placement:: ? -approx 15 yrs Past Psychological History: ADD/ADHD, Anxiety, Bipolar, Depression Smoking Status: Current every day smoker Past Alcohol Use History: Occasional Past Drug Use History: Cocaine, Marijuana, Methamphetamine - Past Family History Father Family Medical History: Cancer, CVA/TIA Additional Family Medical History / Comment(s): . Mother Family Medical History: Cancer Additional Family Medical History / Comment(s): Lung cancer. Brother(s) Family Medical History: Cancer Additional Family Medical History / Comment(s): Lung Cancer. Medications and Allergies Home Medications Medication Instructions Recorded Confirmed Type Tamsulosin HCl [Flomax] 0.4 mg PO DAILY 07/18/17 09/06/23 History Aspirin 81 mg PO DAILY #30 chew 07/19/17 09/06/23 Rx Nitroglycerin Sl Tabs [Nitrostat] 0.4 mg SUBLINGUAL Q5M PRN #30 tab 09/20/17 09/06/23 Rx Buprenorphine HCl/Naloxone HCl 0.5 film SL BID 01/18/22 09/06/23 History [Suboxone 8 mg-2 mg Sl Film] Multivitamins, Thera [Multivitamin 1 tab PO DAILY 01/18/22 09/06/23 History (formulary)] Omeprazole 20 mg PO DAILY 01/18/22 09/06/23 History Acetaminophen Tab [Tylenol] 1,000 mg PO Q6HR PRN 05/31/22 09/06/23 History Albuterol Inhaler [Ventolin Hfa 2 puff INHALATION RT-Q6H PRN 09/06/23 09/06/23 History Inhaler] Dicyclomine [Bentyl] 10 mg PO TID PRN 09/06/23 09/06/23 History buPROPion XL [Wellbutrin XL] 150 mg PO DAILY 09/06/23 09/06/23 History busPIRone HCl [Buspar] 10 mg PO TID PRN 09/06/23 09/06/23 History Atorvastatin [Lipitor] 80 mg PO HS #30 tab 09/08/23 Rx Budesonide-Formot 160-4.5 Mcg 2 puff INHALATION RT-BID #1 each 09/08/23 Rx [Symbicort 160-4.5 Mcg Inhaler] Dapagliflozin Propanediol [Farxiga] 10 mg PO DAILY #30 tab 09/08/23 Rx carvediloL [Coreg] 6.25 mg PO BID-W/MEALS #60 tab 09/08/23 Rx Allergies Allergy/AdvReac Type Severity Reaction Status Date / Time IV DYE Allergy Rash/Hives Uncoded 09/06/23 11:13 Physical Exam Vitals: Vital Signs Temp Pulse Resp BP Pulse Ox 09/06/23 13:11 88 16 09/06/23 12:17 71 09/06/23 12:00 63 16 126/82 100 09/06/23 11:59 61 99 09/06/23 10:32 64 16 100/66 99 09/06/23 09:57 97.7 F 73 16 135/91 97 Intake and Output 09/05/23 09/06/23 09/06/23 22:59 06:59 14:59 Other: Weight 48.988 kg Results 09/07/23 08:13 09/07/23 08:13 Cardiac Enzymes 09/06/23 09/06/23 Range/Units 10:04 10:04 AST 34 (17-59) U/L Troponin I 0.102 H* (0.000-0.034) ng/mL Coagulation 09/06/23 Range/Units 10:04 PT 10.7 (10.0-12.5) sec APTT 23.5 (22.0-30.0) sec CBC 09/06/23 Range/Units 10:04 WBC 6.4 (3.8-10.6) k/uL RBC 3.86 L (4.30-5.90) m/uL Hgb 12.7 L (13.0-17.5) gm/dL Hct 37.6 L (39.0-53.0) % Plt Count 213 (150-450) k/uL Comprehensive Metabolic Panel 09/06/23 Range/Units 10:04 Sodium 139 (137-145) mmol/L Potassium 4.4 (3.5-5.1) mmol/L Chloride 106 (98-107) mmol/L Carbon Dioxide 22 (22-30) mmol/L BUN 16 (9-20) mg/dL Creatinine 0.68 (0.66-1.25) mg/dL Glucose 104 H (74-99) mg/dL Calcium 9.0 (8.4-10.2) mg/dL AST 34 (17-59) U/L ALT 16 (4-49) U/L Alkaline Phosphatase 49 (38-126) U/L Total Protein 6.8 (6.3-8.2) g/dL Albumin 4.0 (3.5-5.0) g/dL Current Medications Generic Name Dose Route Start Last Admin Trade Name Freq PRN Reason Stop Dose Admin Albuterol/Ipratropium 3 ml 09/06/23 16:00 Ipratropium-Albuterol 3 Ml Neb INHALATION RT-Q4H ROSA Heparin Sodium (Porcine) 0 unit 09/06/23 10:07 Heparin Sodium 1,000 Un/Ml (10ml Vl) IV PER PROTOCOL PRN Low PTT Protocol Heparin Sodium/Sodium Chloride 250 mls @ 5.879 mls/hr 09/06/23 10:15 09/06/23 10:28 25,000 unit/ Sodium Chloride IV 12 units/kg/hr .Q24H ROSA 5.879 mls/hr Administration Protocol 12 UNITS/KG/HR Methylprednisolone Sodium Succinate 40 mg 09/06/23 21:00 Methylprednisolone Sod Succi 40 Mg/Ml 1 Ml Vial IV Q12HR ROSA Naloxone HCl 0.2 mg 09/06/23 11:37 Naloxone 0.4 Mg/Ml 1 Ml Vial IV Q2M PRN Opioid Reversal Intake and Output 09/05/23 09/06/23 09/06/23 22:59 06:59 14:59 Other: Weight 48.988 kg Patient Weight 09/07/23 06:59 Weight 48.988 kg 09/06/23 10:04 09/06/23 10:04
[2023-09-06] MEDS: IPRATROPIUM-ALBUTEROL 3 ML NEB INHALATION SCH (16:00)
[2023-09-06] MEDS: PANTOPRAZOLE 40 MG TABLET PO SCH (16:04)
--- NOTE | 2023-09-06 17:03 | P.CNPUL ---
History of Present Illness Consult date: 09/06/23 Requesting physician: Tra Lopez Reason for consult: chest pain, abnormal CXR/CT Chief complaint: Chest pain History of present illness: This is a 73-year-old white male with history of COPD, hypertension, coronary artery disease and previous PCI of LAD 17 years ago. Patient is a heavy smoker, continues to smoke, known history of moderate mitral regurgitation, history of cocaine abuse, patient came in with an acute onset of left-sided chest pain, shortness of breath, started in the morning. Part of the workup in the ER included a chest x-ray which showed a right midlung nodule and I am recommending a CT of the chest to be done on outpatient basis or during this admission. In the meantime the patient is being followed by cardiology, echocardiogram is pending, apparently his last echocardiogram at [facility] was done in 2020 showed ejection fraction of 60% and it also showed mild aortic regurgitation and moderate mitral regurgitation. Considering his presentation and considering his abnormal chest x-ray, this consult was initiated. Patient has occasional cough, no fever no chills no hemoptysis, no weight loss. He does have very strong family history for lung cancer and multiple cancers Review of Systems CONSTITUTIONAL: Negative. No fever no chills no weight loss. HEENT: Negative CARDIOVASCULAR: As noted in HPI Pulmonary: As noted in HPI Hematologic: Negative no clotting bleeding or bruising Psychiatric: No symptoms of active depression Neurologic: No headache blurred vision or dizziness Skin: Denies rashes or pruritus Genitourinary: Denies any dysuria frequency urgency Psychiatric: Denies any symptoms of active depression Past Medical History Past Medical History: Chest Pain / Angina, GERD/Reflux, Hyperlipidemia, Hypertension, Myocardial Infarction ([place]), Prostate Disorder Additional Past Medical History / Comment(s): "Blurry vision, need glasses." Varicose veins. Last Myocardial Infarction Date:: 2018 History of Any Multi-Drug Resistant Organisms: None Reported Past Surgical History: Heart Catheterization With Stent Additional Past Surgical History / Comment(s): stent X2. HEMORROIDECTOMY. PROSTATE SURGERY, BPH. COLONOSCOPY Past Anesthesia/Blood Transfusion Reactions: No Reported Reaction Date of Last Stent Placement:: ? -approx 15 yrs Past Psychological History: ADD/ADHD, Anxiety, Bipolar, Depression Smoking Status: Current every day smoker Past Alcohol Use History: Occasional Past Drug Use History: Cocaine, Marijuana, Methamphetamine - Past Family History Father Family Medical History: Cancer, CVA/TIA Additional Family Medical History / Comment(s): . Mother Family Medical History: Cancer Additional Family Medical History / Comment(s): Lung cancer. Brother(s) Family Medical History: Cancer Additional Family Medical History / Comment(s): Lung Cancer. Medications and Allergies Home Medications Medication Instructions Recorded Confirmed Type Tamsulosin HCl [Flomax] 0.4 mg PO DAILY 07/18/17 09/06/23 History Aspirin 81 mg PO DAILY #30 chew 07/19/17 09/06/23 Rx Nitroglycerin Sl Tabs [Nitrostat] 0.4 mg SUBLINGUAL Q5M PRN #30 tab 09/20/17 09/06/23 Rx Buprenorphine HCl/Naloxone HCl 0.5 film SL BID 01/18/22 09/06/23 History [Suboxone 8 mg-2 mg Sl Film] Ibuprofen [Motrin Ib] 800 mg PO Q8H PRN 01/18/22 09/06/23 History Multivitamins, Thera [Multivitamin 1 tab PO DAILY 01/18/22 09/06/23 History (formulary)] Omeprazole 20 mg PO DAILY 01/18/22 09/06/23 History Acetaminophen Tab [Tylenol Tab] 1,000 mg PO Q6HR PRN 05/31/22 09/06/23 History Albuterol Inhaler [Ventolin Hfa 2 puff INHALATION RT-Q6H PRN 09/06/23 09/06/23 History Inhaler] Dicyclomine [Bentyl] 10 mg PO TID PRN 09/06/23 09/06/23 History buPROPion XL [Wellbutrin XL] 150 mg PO DAILY 09/06/23 09/06/23 History busPIRone HCl [Buspar] 10 mg PO TID PRN 09/06/23 09/06/23 History Allergies Allergy/AdvReac Type Severity Reaction Status Date / Time IV DYE Allergy Rash/Hives Uncoded 09/06/23 11:13 Physical Exam Vitals: Vital Signs Temp Pulse Resp BP Pulse Ox 09/06/23 16:12 71 09/06/23 16:00 77 16 122/86 92 L 09/06/23 13:11 88 16 09/06/23 12:17 71 09/06/23 12:00 63 16 126/82 100 09/06/23 11:59 61 99 09/06/23 10:32 64 16 100/66 99 09/06/23 09:57 97.7 F 73 16 135/91 97 Intake and Output 09/06/23 09/06/23 09/06/23 06:59 14:59 22:59 Other: Weight 48.988 kg General: Reveals 73-year-old white male in no distress Skin: Skin is warm and dry and no rashes or lesions are noted. Eye: Pupils are equal, round and reactive to light, extra-ocular movements are intact; there is normal conjunctiva bilaterally. Ears, nose, mouth and throat: There are moist mucous membranes and no oral lesions. Neck: The neck is supple, there is no tenderness or JVD. Cardiovascular: There is a regular rate and rhythm. No murmur, rub or gallop is appreciated. Respiratory: Diminished breath sound bilaterally no crackles rhonchi or wheezes Gastrointestinal: Soft, non-distended, non-tender abdomen without masses or organomegaly noted. There is no rebound or guarding present. Bowel sounds are unremarkable. Back: There is no tenderness to palpation in the midline. There is no obvious deformity. Musculoskeletal: Normal ROM, no tenderness, There is no pedal edema. There is no calf tenderness or swelling. No cords were appreciated. Neurological: CN II-XII intact, Cranial nerves III through XII are intact. There are no obvious motor or sensory deficits. Coordination appears grossly intact. Speech is normal. Psychiatric: Cooperative, appropriate mood & affect, normal judgment. Results - Laboratory Findings CBC and BMP: 09/06/23 10:04 09/06/23 10:04 PT/INR, D-dimer PT 10.7 sec (10.0-12.5) 09/06/23 10:04 INR 1.0 (<1.2) 09/06/23 10:04 Abnormal lab findings: Abnormal Labs 09/06/23 09/06/23 09/06/23 10:04 10:04 10:04 RBC 3.86 L Hgb 12.7 L Hct 37.6 L Glucose 104 H Troponin I 0.102 H* 09/06/23 12:20 RBC Hgb Hct Glucose Troponin I 0.076 H* - Diagnostic Findings Chest x-ray: image reviewed (Chest x-ray showed minimal atelectasis and vague density in the right midlung CT of the chest is recommended) Assessment and Plan Assessment: Impression: Chest pain, being addressed by cardiology further workup is pending. [place] to be atypical Abnormal chest x-ray suspicious for a nodule hence a CT of the chest will be recommended for further evaluation of the opacity in the right midlung Suspect underlying COPD, does not seem to be active at present Benign essential hypertension History of underlying coronary artery disease Tobacco dependence syndrome Strong family history of lung cancer Recommendation: Counseled regarding smoking cessation Advised to have CT of the chest, this could be done on this admission or could be done on outpatient basis Treat patient with DuoNeb updrafts 4 times daily and as needed as well as Symbicort No need for methylprednisolone Continue heparin as recommended by cardiology Awaiting his echocardiogram Resume home meds Will continue to follow Time with Patient: Greater than 30
[2023-09-06] MEDS ORDERED: SUBOXONE FILM PO PRN (18:17)
[2023-09-06] MEDS ORDERED: SUBOXONE FILM SUBLINGUAL PRN (18:29)
[2023-09-06] MEDS: NALOXONE HCL SUBLINGUAL SCH (18:39)
[2023-09-06] MEDS: BUPRENORPHINE HCL SUBLINGUAL SCH (18:39)
[2023-09-06 20:15] LABS: Appearance,Urine Clear (Clear); Bilirubin,Urine Negative (Negative); Blood,Urine Negative (Negative); Color,Urine Colorless; Glucose,Urine (UA) Negative (Negative); Ketones,Urine Negative (Negative); Leukocyte Esterase,Urine Negative (Negative); Nitrite,Urine Negative (Negative); Protein,Urine Negative (Negative); Urobilinogen,Urine <2.0 mg/dL (<2.0)
[2023-09-06] MEDS ORDERED: methylPREDNISolone SOD SUCCI 40 MG/ML 1 ML VIAL IV SCH (21:00)
[2023-09-06] MEDS: SYMBICORT 160-4.5 MCG INHALER INHALATION SCH (21:30)
[2023-09-07] MEDS: ACETAMINOPHEN TAB 500 MG TAB PO PRN (00:49)
[2023-09-07] MEDS: HEPARIN SODIUM 1,000 UN/ML (10ML VL) IV PRN (00:50)
--- NOTE | 2023-09-07 03:08 | HP ---
HISTORY AND PHYSICAL CHIEF COMPLAINT: Chest pain. HISTORY OF PRESENT ILLNESS: This is the first known admission for this 73-year-old male, who came to the emergency room complaining of chest pain. patient. REVIEW OF SYSTEMS: He had shortness of breath and slight diaphoresis. He had no syncope. Past medical history, family history, and personal and social histories revealed that he is allergic to a certain dye. MEDICATIONS: He is on, 1. Bupropion. 2. Trelegy. 3. Tamsulosin. 4. Hydroxyzine. 5. Omeprazole. 6. Albuterol. 7. Buprenorphine. He does have a history of hypertension, coronary artery disease, and also GERD. He is a current smoker. PHYSICAL EXAMINATION: VITAL SIGNS: Blood pressure 128/72, pulse of 82, respirations of 35, he is afebrile. GENERAL: He appeared to be quite slender . HEAD, EARS, EYES, NOSE, MOUTH AND THROAT: Normal. CHEST: Clear. CARDIAC: Reveals sinus rhythm. No murmurs or extra sounds. ABDOMEN: Flat and soft, nontender. EXTREMITIES: Normal. NEUROLOGICAL: He is intact. ASSESSMENT: He is admitted to the hospital with diagnoses of: 1. Non ST elevation myocardial infarction. 2. Previous non ST elevation myocardial infarction. 3. Chronic obstructive pulmonary disease. 4. History of narcotic addiction. PLAN: 1. Bedrest. 2. IV fluids. 3. Serial EKGs and enzymes. 4. Consult Cardiology. MMODL / IJN: [id number] /
[2023-09-07 08:47] LABS: Basophils % (A) 0 %; Eosinophils # (A) 0.1 k/uL (0-0.7); Eosinophils % (A) 1 %; HCT 39.4 % (39.0-53.0); HGB 12.2 gm/dL (13.0-17.5); Hypochromasia Slight; Lymphocytes # (A) 1.3 k/uL (1.0-4.8); Lymphocytes % (A) 12 %; MCH 31.3 pg (25.0-35.0); MCHC 31.1 g/dL (31.0-37.0); MCV 100.6 fL (80.0-100.0); Mean Platelet Volume 8.5; Monocytes # (A) 0.6 k/uL (0-1.0); Monocytes % (A) 6 %; Neutrophils # (A) 8.6 k/uL (1.3-7.7); Neutrophils % (A) 80 %; Platelet Count 228 k/uL (150-450); RBC 3.92 m/uL (4.30-5.90); RDW 13.2 % (11.5-15.5); WBC 10.7 k/uL (3.8-10.6)
[2023-09-07 08:57] LABS: Partial Thromboplastin Time 44.3 sec (22.0-30.0); Prothrombin Time 10.9 sec (10.0-12.5)
[2023-09-07 08:58] LABS: African American GFR (CKD) >90 (>60 ml/min/1.73 sqM); Anion Gap 9 mmol/L; Blood Urea Nitrogen 19 mg/dL (9-20); Calcium 9.2 mg/dL (8.4-10.2); Carbon Dioxide 26 mmol/L (22-30); Chloride 105 mmol/L (98-107); Glucose 103 mg/dL (74-99); Non-African American GFR(CKD) >90 (>60 ml/min/1.73 sqM); Potassium 3.9 mmol/L (3.5-5.1); Sodium 140 mmol/L (137-145)
[2023-09-07] MEDS: TAMSULOSIN 0.4 MG CAP.ER.24H PO SCH (09:32)
[2023-09-07] MEDS: ASPIRIN 81 MG PO SCH (09:32)
[2023-09-07] MEDS: HEPARIN SODIUM,PORCINE 5,000 UNIT/ML 1 ML VIAL SQ SCH (09:33)
[2023-09-07] MEDS: busPIRone HCl 10 MG TAB PO PRN (09:54)
[2023-09-07] MEDS: buPROPion XL 150 MG TAB.ER.24H PO SCH (09:55)
--- NOTE | 2023-09-07 10:07 | CA ---
Transthoracic Echo Report Name: Randy Harry Age: 73 Gender: M : 1950 Exam Date: 09/06/2023 15:39 Exam Location: [facility] Ht (in): 63 Wt (lb): 108 Ordering Physician: Shannon Carballo Attending/Referring Phys: [id number], [employer] Curator Tamika Edwards RDCS Procedure CPT: Indications: LVF Cardiac Hx: ID, COPD, HTN Technical Quality: Good Contrast 1: Total Dose (mL): Contrast 2: Total Dose (mL): MEASUREMENTS (Male / Female) Normal Values 2D ECHO LV Diastolic Diameter PLAX 4.3 cm 4.2 - 5.9 / 3.9 - 5.3 cm LV Systolic Diameter PLAX 3.0 cm IVS Diastolic Thickness 1.3 cm 0.6 - 1.0 / 0.6 - 0.9 cm LVPW Diastolic Thickness 1.2 cm 0.6 - 1.0 / 0.6 - 0.9 cm LV Relative Wall Thickness 0.6 RV Internal Dim ED PLAX 2.6 cm LVOT Diameter 2.3 cm LA Systolic Diameter LX 4.6 cm 3.0 - 4.0 / 2.7 - 3.8 cm LV Diastolic Volume MOD BP 90.0 cm??? 67 - 155 / 56 - 104 cm??? LV Systolic Volume MOD BP 43.1 cm??? 22 - 58 / 19 - 49 cm??? LV Ejection Fraction MOD BP 52.2 % >= 55 % LV Cardiac Index MOD BP 2106.1 cm???/min???m??? LV Diastolic Volume MOD 4C 93.7 cm??? LV Systolic Volume MOD 4C 42.3 cm??? LV Ejection Fraction MOD 4C 54.8 % LV Cardiac Index MOD 4C 2305.7 cm???/min???m??? LV Diastolic Length 4C 7.8 cm LV Systolic Length 4C 7.1 cm LV Diastolic Volume MOD 2C 83.2 cm??? LV Systolic Volume MOD 2C 43.6 cm??? LV Ejection Fraction MOD 2C 47.6 % LV Cardiac Index MOD 2C 1775.7 cm???/min???m??? LV Diastolic Length 2C 8.1 cm LV Systolic Length 2C 7.3 cm LA Volume 96.4 cm??? 18 - 58 / 22 - 52 cm??? LA Volume Index 65.5 cm???/m??? 16 - 28 cm???/m??? M-MODE Aortic Root Diameter MM 3.2 cm DOPPLER AV Peak Velocity 414.0 cm/s AV Peak Gradient 68.6 mmHg AV Mean Velocity 288.0 cm/s AV Mean Gradient 44.0 mmHg AV Velocity Time Integral 114.2 cm MV Peak Velocity 146.3 cm/s MV Peak Gradient 8.6 mmHg MV Mean Velocity 76.8 cm/s MV Mean Gradient 2.8 mmHg MV Velocity Time Integral 38.3 cm MV Area PHT 4.0 cm??? MR Peak Velocity 778.5 cm/s MR Peak Gradient 242.4 mmHg Mitral E Point Velocity 136.6 cm/s Mitral A Point Velocity 76.0 cm/s Mitral E to A Ratio 1.8 MV Deceleration Time 187.6 ms LV E' Lateral Velocity 6.9 cm/s Mitral E to LV E' Lateral Ratio 19.7 LV E' Septal Velocity 6.2 cm/s Mitral E to LV E' Septal Ratio 22.0 TR Peak Velocity 321.6 cm/s TR Peak Gradient 41.4 mmHg Right Ventricular Systolic Press 45.5 mmHg FINDINGS Left Ventricle Left ventricular ejection fraction is estimated at 55-60 %. Mildly increased septal wall thickness. Left ventricular cavity size normal. Right Ventricle Normal right ventricular size. Moderate pulmonary hypertension. Right ventricular systolic pressure estimated at 46 mm hg. Right Atrium Normal right atrial size. Left Atrium Mild LA dilatation Mitral Valve Moderate thickening/calcification of the anterior mitral valve leaflet. Mild thickening/calcification of the posterior mitral valve leaflet. Mitral annular calcification. Moderate mitral regurgitation. Aortic Valve Trileaflet aortic valve. Aortic valve sclerosis. LVOT obstruction with mean gradient of 44 mmHg. Mild aortic regurgitation. Tricuspid Valve Structurally normal tricuspid valve. Mild tricuspid regurgitation. Pulmonic Valve Structurally normal pulmonic valve. Mild pulmonic regurgitation. Pericardium No pericardial effusion. Aorta Normal size aortic root and proximal ascending aorta. CONCLUSIONS Left ventricular ejection fraction is estimated at 55-60 %. Mild LVH Evidence of chordal sysytolic anterior motion of mitral leaflet with increased gradients in LVOT. Mean LVOTgradient 44 mmHG. Thickening of mitral leaflet with moderate MR, Previewed by: Dr Dayne Quezada (Electronically Signed) Final Date: 07 September 2023 10:06
[2023-09-07 13:29] VITALS: BMI 19.1
--- NOTE | 2023-09-07 14:13 | P.PN ---
Subjective Progress Note Date: 09/07/23 Reason for Consult (text): STEMI call History of present illness: This is a 73-year-old male patient of Dr. Jolly with a past medical history of COPD, hypertension, hyperlipidemia, gastroesophageal reflux disease, coronary artery disease status post PCI of the LAD about 17 years ago, tobacco use and dependence, moderate mitral digitation, prior history of cocaine abuse. Patient was brought in by EMS called as a ST elevated MO. Patient presented with left- sided chest pain and shortness of breath that started in the morning. Patient did have some tenderness to the chest wall. No fever or chills, no cough. Initial blood pressure 135/91 heart rate 73. Patient was last seen in the office with Dr. Jolly on 10/18/2020 and plan was for Lexiscan stress test which does not appear the patient completed. EKG sinus rhythm, left trickle hypertrophy Chest x-ray: Left basilar atelectasis. COPD. Vague density over the right midlung may be related to superimposed structures. Small pulmonary nodule in the differential diagnosis. WBC 6.4, hemoglobin 12.7, platelet count 213. INR 1. Electrolytes and renal function are all normal. Glucose 104. Magnesium 1.7. Liver function test are normal. Troponin 0.102. proBNP 3440. Home cardiac medications: Aspirin 81 mg daily, nitroglycerin 0.4 mg as needed Echocardiogram performed at [facility] and 2020 revealed EF of 60%, severe concentric left trickle hypertrophy, aortic valve calcification without stenosis, mild aortic regurgitation and moderate mitral digitation. 09/06 Patient is seen today on the cardiac stepdown unit. He has been continued on a heparin drip. Repeat troponins are 0.76 and 0.88 not consistent with acute myocardial injury. Repeat blood work reveals hemoglobin is 12.2. Sodium 140, potassium 3.9, creatinine 0.62. Blood pressure 154/81, heart rate 60, pulse ox 98% on room air. Echocardiogram reveals EF of 55 to 60%. Evidence of chordal systolic anterior motion of mitral leaflet with increased gradients in the LVOT. Mean LVOT gradient 44 mmHg. Thickening of the mitral leaflet with moderate MR. Patient denies having any chest pain. Shortness of breath is improving. Physical examination: Gen: This is a thin cachectic appearing 73-year-old male in no acute respiratory distress. VS: reviewed HEENT: Head is atraumatic, normocephalic. Pupils equal, round. Sclerae is anicteric. NECK: Supple. No JVD. LUNGS: Diminished breath sounds bilaterally. No intercostal retractions. HEART: Regular rate and rhythm. No murmur. ABDOMEN: Soft No tenderness. EXTREMITIES: No pedal edema. No calf tenderness. NEUROLOGICAL: Patient is awake, alert and oriented x3. Assessment: Atypical chest pain, no evidence of myocardial injury COPD exacerbation Hypertension History of coronary artery disease with previous stent of the LAD Plan: Continue current cardiac medications Discontinue heparin drip and start patient on subcu heparin 4000 units every 12 hours Continue treatment for COPD exacerbation Smoking cessation Further recommendations to follow based upon clinical course. Nurse practitioner note has been reviewed, I agree with documented findings and plan of care. Patient was seen and examined. Objective - Vital Signs Vital signs: Vital Signs Temp 97.8 F 09/07/23 04:00 Pulse 64 09/07/23 04:00 Resp 16 09/07/23 04:00 BP 131/81 09/07/23 04:00 Pulse Ox 98 09/07/23 04:00 FiO2 Intake & Output 09/06/23 09/07/23 09/07/23 18:59 06:59 18:59 Intake Total 83.482 Output Total 300 Balance -216.518 Weight 48.988 kg Intake: Intake, IV Titration 83.482 Amount Heparin Sod,Pork in 0.45% 83.482 NaCl 25,000 unit In 0.45 % NaCl 1 250ml.bag @ 12 UNITS/KG/HR 5.879 mls/hr IV .Q24H [facility] Rx#: [id number] Output: Urine 300 Other: Voiding Method Toilet Toilet # Voids 1 2 # Bowel Movements 1 - Labs CBC & Chem 7: 09/07/23 08:13 09/07/23 08:13 Labs: Abnormal Lab Results - Last 24 Hours (Table) 09/06/23 09/06/23 09/06/23 Range/Units 10:04 10:04 10:04 RBC 3.86 L (4.30-5.90) m/uL Hgb 12.7 L (13.0-17.5) gm/dL Hct 37.6 L (39.0-53.0) % Glucose 104 H (74-99) mg/dL Troponin I 0.102 H* (0.000-0.034) ng/mL 09/06/23 09/06/23 Range/Units 12:20 18:24 RBC (4.30-5.90) m/uL Hgb (13.0-17.5) gm/dL Hct (39.0-53.0) % Glucose (74-99) mg/dL Troponin I 0.076 H* 0.088 H* (0.000-0.034) ng/mL
--- NOTE | 2023-09-07 15:35 | P.PN ---
Subjective Progress Note Date: 09/07/23 Principal diagnosis: Chest pain and pulmonary nodule with underlying COPD This is a 73-year-old white male with history of COPD, hypertension, coronary artery disease and previous PCI of LAD 17 years ago. Patient is a heavy smoker, continues to smoke, known history of moderate mitral regurgitation, history of cocaine abuse, patient came in with an acute onset of left-sided chest pain, shortness of breath, started in the morning. Part of the workup in the ER included a chest x-ray which showed a right midlung nodule and I am recommending a CT of the chest to be done on outpatient basis or during this admission. In the meantime the patient is being followed by cardiology, echocardiogram is pending, apparently his last echocardiogram at [facility] was d one in 2020 showed ejection fraction of 60% and it also showed mild aortic regurgitation and moderate mitral regurgitation. Considering his presentation and considering his abnormal chest x-ray, this consult was initiated. Patient has occasional cough, no fever no chills no hemoptysis, no weight loss. He does have very strong family history for lung cancer and multiple cancers Patient was reevaluated today on 09/07/2023, remains on heparin drip for his chest pain presentation and abnormal troponins. However cardiology felt that the patient did not have a typical presentation of acute myocardial injury. Pulmonary regan the patient is doing well, he is on room air, O2 sats is 98%. Echocardiogram showed moderate mitral regurgitation, patient is known to have history of coronary artery disease and previous stent of the LAD. Pulmonary regan I believe the patient needs to see me on outpatient basis for his pulmonary nodule and I would recommend outpatient CT of the chest. However cardiology needs to clear the patient for discharge if clearly convinced that this is not a cardiac presentation Objective - Vital Signs Vital signs: Vital Signs Temp 98.3 F 09/07/23 11:00 Pulse 58 L 09/07/23 11:00 Resp 16 09/07/23 13:20 BP 148/88 09/07/23 11:00 Pulse Ox 98 09/07/23 11:00 FiO2 Intake & Output 09/06/23 09/07/23 09/07/23 18:59 06:59 18:59 Intake Total 83.482 716 Output Total 300 Balance -216.518 716 Weight 48.988 kg 48.988 kg Intake: Intake, IV Titration 83.482 Amount Heparin Sod,Pork in 0.45% 83.482 NaCl 25,000 unit In 0.45 % NaCl 1 250ml.bag @ 12 UNITS/KG/HR 5.879 mls/hr IV .Q24H [facility] Rx#: [id number] Oral 716 Output: Urine 300 Other: Voiding Method Toilet Toilet Toilet # Voids 1 2 # Bowel Movements 1 - Exam General: Reveals 73-year-old white male in no distress Skin: Skin is warm and dry and no rashes or lesions are noted. Eye: Pupils are equal, round and reactive to light, extra-ocular movements are intact; there is normal conjunctiva bilaterally. Ears, nose, mouth and throat: There are moist mucous membranes and no oral lesions. Neck: The neck is supple, there is no tenderness or JVD. Cardiovascular: There is a regular rate and rhythm. No murmur, rub or gallop is appreciated. Respiratory: Diminished breath sound bilaterally no crackles rhonchi or wheezes Gastrointestinal: Soft, non-distended, non-tender abdomen without masses or organomegaly noted. There is no rebound or guarding present. Bowel sounds are unremarkable. Back: There is no tenderness to palpation in the midline. There is no obvious deformity. Musculoskeletal: Normal ROM, no tenderness, There is no pedal edema. There is no calf tenderness or swelling. No cords were appreciated. Neurological: CN II-XII intact, Cranial nerves III through XII are intact. There are no obvious motor or sensory deficits. Coordination appears grossly intact. Speech is normal. Psychiatric: Cooperative, appropriate mood & affect, normal judgment. - Labs CBC & Chem 7: 09/07/23 08:13 09/07/23 08:13 Labs: Abnormal Lab Results - Last 24 Hours (Table) 09/06/23 09/07/23 09/07/23 Range/Units 18:24 08:13 08:13 WBC 10.7 H (3.8-10.6) k/uL RBC 3.92 L (4.30-5.90) m/uL Hgb 12.2 L (13.0-17.5) gm/dL MCV 100.6 H (80.0-100.0) fL Neutrophils # 8.6 H (1.3-7.7) k/uL APTT (22.0-30.0) sec Creatinine 0.62 L (0.66-1.25) mg/dL Glucose 103 H (74-99) mg/dL Troponin I 0.088 H* (0.000-0.034) ng/mL 09/07/23 Range/Units 08:13 WBC (3.8-10.6) k/uL RBC (4.30-5.90) m/uL Hgb (13.0-17.5) gm/dL MCV (80.0-100.0) fL Neutrophils # (1.3-7.7) k/uL APTT 44.3 H (22.0-30.0) sec Creatinine (0.66-1.25) mg/dL Glucose (74-99) mg/dL Troponin I (0.000-0.034) ng/mL Assessment and Plan Assessment: Impression: Chest pain, being addressed by cardiology further workup is pending. [place] to be atypical Abnormal chest x-ray suspicious for a nodule hence a CT of the chest will be recommended for further evaluation of the opacity in the right midlung Suspect underlying COPD, does not seem to be active at present Benign essential hypertension History of underlying coronary artery disease Tobacco dependence syndrome Strong family history of lung cancer Recommendation: Counseled regarding smoking cessation Advised to have CT of the chest, this could be done on this admission or could be done on outpatient basis Continue DuoNeb updrafts 4 times daily and as needed as well as Symbicort this is mostly for underlying COPD Need for steroids/systemic steroid Heparin to be addressed by cardiology Results of echocardiogram reviewed Will clear the patient for discharge once he is cleared by cardiology Time with Patient: Less than 30
[2023-09-07] MEDS: ATORVASTATIN 80 MG TAB PO SCH (16:29)
[2023-09-07] MEDS: CLOPIDOGREL 75 MG TAB PO SCH (16:29)
[2023-09-07] MEDS: DAPAGLIFLOZIN PROPANEDIOL 10 MG TABLET PO SCH (16:30)
[2023-09-07] MEDS: METOPROLOL SUCCINATE (ER) 50 MG TAB.ER.24H PO SCH (16:30)
[2023-09-07] MEDS ORDERED: IPRATROPIUM-ALBUTEROL 3 ML NEB INHALATION PRN (20:41)
--- NOTE | 2023-09-08 02:42 | PN ---
PROGRESS NOTE DATE OF SERVICE: 09/07/2023 CHIEF COMPLAINT: Acute PA. HISTORY OF PRESENT ILLNESS: This gentleman is doing well. He denies any shortness of breath, palpitations, chest pain, diaphoresis, etc. All 3 of his troponins were elevated. He has been seen by Cardiology. Apparently, it was thought that he might go to the pit laborer, but apparently this was postponed. He says the polisher brass told him, "you do not have a heart attack." He also states that Cardiology told him this morning that he could "go home after I saw him." REVIEW OF SYSTEMS: He denies any chest pain, shortness of breath, palpitations, etc. PHYSICAL EXAMINATION: CHEST: Clear. CARDIAC: Normal sinus rhythm. ABDOMEN: Soft, nontender. IMPRESSION: 1. Acute myocardial infarction/non ST elevation myocardial infarction? 2. Coronary artery disease with previous placement of stents (2). 3. Chronic obstructive pulmonary disease. 4. Alcoholism. PLAN: I would not recommend discharging this patient at this time. He will be placed on a statin, Plavix, and beta azucena. He may sign out AMA. MMODL / IJN: [id number] /
[2023-09-08 08:27] VITALS: PULSE 55; TEMP 98
[2023-09-08 11:27] VITALS: BP 181/94; RESP 17
--- NOTE | 2023-09-08 11:50 | PN ---
PROGRESS NOTE CHIEF COMPLAINT: Acute NSTEMI. HISTORY OF PRESENT ILLNESS: This gentleman is doing well. He has had no chest pain, shortness of breath, syncope, etc. PHYSICAL EXAMINATION: CHEST: Clear. CARDIAC: Normal sinus rhythm. ABDOMEN: Flat, soft. IMPRESSION: 1. Non-ST segment elevation myocardial infarction. 2. Coronary artery disease. 3. Chronic obstructive pulmonary disease. PLAN: Await further recommendations from Cardiology today. MMODL / IJN: [id number] /
--- NOTE | 2023-09-08 13:59 | P.PN ---
Subjective Progress Note Date: 09/08/23 Principal diagnosis: Chest pain and pulmonary nodule with underlying COPD This is a 73-year-old white male with history of COPD, hypertension, coronary artery disease and previous PCI of LAD 17 years ago. Patient is a heavy smoker, continues to smoke, known history of moderate mitral regurgitation, history of cocaine abuse, patient came in with an acute onset of left-sided chest pain, shortness of breath, started in the morning. Part of the workup in the ER included a chest x-ray which showed a right midlung nodule and I am recommending a CT of the chest to be done on outpatient basis or during this admission. In the meantime the patient is being followed by cardiology, echocardiogram is pending, apparently his last echocardiogram at [facility] was d one in 2020 showed ejection fraction of 60% and it also showed mild aortic regurgitation and moderate mitral regurgitation. Considering his presentation and considering his abnormal chest x-ray, this consult was initiated. Patient has occasional cough, no fever no chills no hemoptysis, no weight loss. He does have very strong family history for lung cancer and multiple cancers Patient was reevaluated today on 09/07/2023, remains on heparin drip for his chest pain presentation and abnormal troponins. However cardiology felt that the patient did not have a typical presentation of acute myocardial injury. Pulmonary regan the patient is doing well, he is on room air, O2 sats is 98%. Echocardiogram showed moderate mitral regurgitation, patient is known to have history of coronary artery disease and previous stent of the LAD. Pulmonary regan I believe the patient needs to see me on outpatient basis for his pulmonary nodule and I would recommend outpatient CT of the chest. However cardiology needs to clear the patient for discharge if clearly convinced that this is not a cardiac presentation Reevaluated today on 09/08/23, patient is doing well, asymptomatic, no chest pain no cough no wheezing no shortness of breath, I have cleared the patient for discharge as long as he is cleared by cardiology and if cardiology is convinced that his presentation is not a cardiac presentation. Patient would like to go home, and again I am clearing him for discharge for his nodule the patient will see me on outpatient basis, and I would recommend a CT of the chest on outpatient basis. Objective - Vital Signs Vital signs: Vital Signs Temp 98.0 F 09/08/23 08:03 Pulse 55 L 09/08/23 11:13 Resp 17 09/08/23 11:13 BP 181/94 09/08/23 11:13 Pulse Ox 99 09/08/23 11:13 FiO2 Intake & Output 09/07/23 09/08/23 09/08/23 18:59 06:59 18:59 Intake Total 716 240 Balance 716 240 Weight 48.988 kg Intake: Oral 716 240 Other: Voiding Method Toilet Toilet Toilet # Voids 4 2 2 - Exam General: Reveals 73-year-old white male in no distress on room air Skin: Skin is warm and dry and no rashes or lesions are noted. Eye: Pupils are equal, round and reactive to light, extra-ocular movements are intact; there is normal conjunctiva bilaterally. Ears, nose, mouth and throat: There are moist mucous membranes and no oral lesions. Neck: The neck is supple, there is no tenderness or JVD. Cardiovascular: There is a regular rate and rhythm. No murmur, rub or gallop is appreciated. Respiratory: Clear breath sound bilaterally no rhonchi no wheezes Gastrointestinal: Soft, non-distended, non-tender abdomen without masses or or ganomegaly noted. There is no rebound or guarding present. Bowel sounds are unremarkable. Back: There is no tenderness to palpation in the midline. There is no obvious deformity. Musculoskeletal: Normal ROM, no tenderness, There is no pedal edema. There is no calf tenderness or swelling. No cords were appreciated. Neurological: CN II-XII intact, Cranial nerves III through XII are intact. The re are no obvious motor or sensory deficits. Coordination appears grossly intact. Speech is normal. Psychiatric: Cooperative, appropriate mood & affect, normal judgment. - Labs CBC & Chem 7: 09/07/23 08:13 09/07/23 08:13 Assessment and Plan Assessment: Impression: Chest pain, being addressed by cardiology further workup is pending. Ethan to be atypical Abnormal chest x-ray suspicious for a nodule hence a CT of the chest will be recommended for further evaluation of the opacity in the right midlung Suspect underlying COPD, does not seem to be active at present Benign essential hypertension History of underlying coronary artery disease Tobacco dependence syndrome Strong family history of lung cancer Recommendation: Counseled regarding smoking cessation Advised to have CT of the chest, on outpatient basis Continue DuoNeb updrafts 4 times daily and as needed as well as Symbicort this is mostly for underlying COPD No need for systemic steroids Results of echocardiogram reviewed Cleared from my perspective for discharge if cleared by cardiology Time with Patient: Less than 30
--- NOTE | 2023-09-08 19:34 | P.PN ---
Subjective Progress Note Date: 09/08/23 History of present illness: This is a 73-year-old male patient of Dr. Jolly with a past medical history of COPD, hypertension, hyperlipidemia, gastroesophageal reflux disease, coronary artery disease status post PCI of the LAD about 17 years ago, tobacco use and dependence, moderate mitral digitation, prior history of cocaine abuse. Patient was brought in by EMS called as a ST elevated MD. Patient presented with left- sided chest pain and shortness of breath that started in the morning. Patient did have some tenderness to the chest wall. No fever or chills, no cough. Initial blood pressure 135/91 heart rate 73. Patient was last seen in the office with Dr. Jolly on 10/18/2020 and plan was for Lexiscan stress test which does not appear the patient completed. EKG sinus rhythm, left trickle hypertrophy Chest x-ray: Left basilar atelectasis. COPD. Vague density over the right midlung may be related to superimposed structures. Small pulmonary nodule in the differential diagnosis. WBC 6.4, hemoglobin 12.7, platelet count 213. INR 1. Electrolytes and renal function are all normal. Glucose 104. Magnesium 1.7. Liver function test are normal. Troponin 0.102. proBNP 3440. Home cardiac medications: Aspirin 81 mg daily, nitroglycerin 0.4 mg as needed Echocardiogram performed at [facility] and 2020 revealed EF of 60%, severe concentric left trickle hypertrophy, aortic valve calcification without stenosis, mild aortic regurgitation and moderate mitral digitation. 09/06 Patient is seen today on the cardiac stepdown unit. He has been continued on a heparin drip. Repeat troponins are 0.76 and 0.88 not consistent with acute myocardial injury. Repeat blood work reveals hemoglobin is 12.2. Sodium 140, potassium 3.9, creatinine 0.62. Blood pressure 154/81, heart rate 60, pulse ox 98% on room air. Echocardiogram reveals EF of 55 to 60%. Evidence of chordal systolic anterior motion of mitral leaflet with increased gradients in the LVOT. Mean LVOT gradient 44 mmHg. Thickening of the mitral leaflet with moderate MR. Patient denies having any chest pain. Shortness of breath is improving. September 08, 2023 Patient was seen at the bedside. Patient is highly eager to go home. He is telling me that he would like to leave AMA if I do not discharge him. Patient initially presented with substernal chest pressure symptoms and feeling of lightheadedness and presyncope. His echocardiogram showed signs of LVH and dynamic LVOT obstruction with mean resting gradient of 44 mmHg and systolic anterior motion of mitral leaflet. On exam he also has dynamic systolic murmur which gets potentiated with Valsalva maneuvers. His ECG is consistent with the findings of LVH with deep T wave inversions in anteroseptal leads. Physical examination: Gen: This is a thin cachectic appearing 73-year-old male in no acute respiratory distress. VS: reviewed HEENT: Head is atraumatic, normocephalic. Pupils equal, round. Sclerae is anicteric. NECK: Supple. No JVD. LUNGS: Diminished breath sounds bilaterally. No intercostal retractions. HEART: Regular rate and rhythm. Systolic murmur that potentiates with Valsalva maneuver ABDOMEN: Soft No tenderness. EXTREMITIES: No pedal edema. No calf tenderness. NEUROLOGICAL: Patient is awake, alert and oriented x3. Assessment: Atypical chest pain, no evidence of myocardial injury COPD exacerbation Hypertension History of coronary artery disease with previous stent of the LAD Plan: Continue aspirin and atorvastatin. Patient has low resting heart rate but has elevated blood pressure. For this I will discontinue his metoprolol and would instead start him on Coreg 6.25 mg twice daily. I have advised him to monitor his blood pressure at home very closely. I have advised him to monitor his blood pressure very closely at home. Do not overexert. I have advised him not to smoke at home. I have discontinued his Farxiga has this will cause preload reduction in setting of LVOT obstruction I have advised him to maintain adequate hydration early f/u with Dr Jolly in cardiology clinic Objective - Vital Signs Vital signs: Vital Signs Temp 98.0 F 09/08/23 08:03 Pulse 55 L 09/08/23 11:13 Resp 17 09/08/23 11:13 BP 181/94 09/08/23 11:13 Pulse Ox 99 09/08/23 11:13 FiO2 Intake & Output 09/08/23 09/08/23 09/09/23 06:59 18:59 06:59 Intake Total 240 Balance 240 Intake: Oral 240 Other: Voiding Method Toilet Toilet # Voids 2 2 - Labs CBC & Chem 7: 09/07/23 08:13 09/07/23 08:13
[2023-09-08] MEDS ORDERED: ATORVASTATIN 40 MG TAB PO SCH (21:00)
[2023-09-09] MEDS ORDERED: carvediloL 6.25 MG TAB PO SCH (08:00)
[2023-09-09] MEDS ORDERED: DAPAGLIFLOZIN PROPANEDIOL 10 MG TABLET PO SCH (09:00)
[2023-09-09] MEDS ORDERED: CLOPIDOGREL 75 MG TAB PO SCH (09:00)
--- NOTE | 2023-09-12 22:15 | DS ---
DISCHARGE SUMMARY CHIEF COMPLAINT: Chest pain. HISTORY OF PRESENT ILLNESS AND PHYSICAL EXAMINATION: Details of this man's history and physical can be found in the initial workup. LABORATORY STUDIES: While he was in the hospital, he had laboratory studies, details of which can be found in the laboratory section of his chart. COURSE IN THE HOSPITAL: After admission, he was placed on bedrest, started on intravenous fluids. Troponins were elevated and it was determined that he had an NSTEMI. Initially it looked as though he is going to the medical lab technologist, but this was not the case. He did well with no problems with further chest pain, cardiac arrhythmias, shortness of breath, etc. He thought that he was to undergo a cardiac cath, but Cardiology indicated he could be discharged and set up for catheterization in 2 weeks. He will go home on his usual activity, and medication along with some additional drugs. He will be seen in the office in several days. FINAL DIAGNOSES: 1. Non ST elevation myocardial infarction. 2. History of coronary artery disease with previous myocardial infarction. 3. Chronic obstructive pulmonary disease. OPERATIONS: None. CONSULTATIONS: Cardiology. He is improved. MMODL / IJN: [id number] /
--- NOTE | 2023-09-27 17:09 | CDI ---
Documentation Clarification Form Date: 09/27/223 From: Giovana Aburto Admit Date: 09/06/2023 11:37:00 AM Patient Name: Randy Harry Visit Number: [id number] Discharge Date: 09/08/2023 05:03:00 PM ATTENTION: The Clinical Documentation Specialists (CDI) and [facility] Coding Staff appreciate your assistance in clarifying documentation. Please respond to the clarification below the line at the bottom and electronically sign. The CDI & [facility] Coding staff will review the response and follow-up if needed. Please note: Queries are made part of the Legal Health Record. If you have any questions, please contact the author of this message via ITS. Dr. Dayne Quezada Your patient has the documented symptom of chest pain. Additional clarification regarding the etiology/cause of this symptom is requested. History/Risk factors: 73yo presented with chest pain, shortness of breath. He has a h/o VA s/p stent, COPD. Clinical Indicators: Cardio PN on 09/07 noted atypical chest pain, no evidence of myocardial injury. Echocardiogram showed signs of LVH and dynamic LVOT obstruction with mean resting gradient of 44mmHg and systolic anterior motion of mitral leaflet. His ECG is consistent with the findings of LVH with deep T wave inversions in anteroseptal leads. Labs: Trop 0.076, 0.088 Treatment: Heprain gtt, Coreg po, metoprolol d/cd, Farxiga d/cd Please provide additional clarification regarding the etiology/cause of the chest pain. [ ] Chest pain due to NSTEMI [ ] Chest pain due to LVOT with myocardial injury [ X] Chest pain due to LVOT w/o myocardial injury [ ] Chest pain due to other condition, please specify [ ] Unable to determine (Template Last Revised: August 2020) MTDD
--- NOTE | 2023-11-09 13:17 | CDI ---
Documentation Clarification Form Date: 11/09/23 From: Divine Castillo Admit Date: 09/06/2023 11:37:00 AM Patient Name: Randy Harry Visit Number: [id number] Discharge Date: 09/08/2023 05:03:00 PM ATTENTION: The Clinical Documentation Specialists (CDI) and [facility] Coding Staff appreciate your assistance in clarifying documentation. Please respond to the clarification below the line at the bottom and electronically sign. The CDI & [facility] Coding staff will review the response and follow-up if needed. Please note: Queries are made part of the Legal Health Record. If you have any questions, please contact the author of this message via ITS. Dr. Dayne Quezada, LVOT is documented in your query response as cause of chest pain. Please clarify. History/Risk Factors: Presented withchest pain,shortness of breath. He has a h/oMIs/pstent,COPD Clinical Indicators: Echocardiogram showed signs of LVH and dynamic LVOT obstruction with mean resting gradient of 44mmHg and systolic anterior motion of mitral leaflet. His ECG is consistent with the findings of LVH with deep T wave inversions in anteroseptal leads. Treatment: adjusted BP medications, dcd Farixga Please clarify the relationship, if any, which is clinically appropriate for this patient: [ ] LVOT related to left ventricular heart failure, unspecified [ ] LVOT related to obstructive hypertrophic cardiomyopathy [ ] Other explanation of clinical findings (please specify) [ ] Unable to determine (no explanation for clinical findings) MTDD
--- NOTE | 2023-11-14 11:08 | CDI ---
Documentation Clarification Form Date: 11/09/23 From: Divine Castillo Admit Date: 09/06/2023 11:37:00 AM Patient Name: Randy Harry Visit Number: [id number] Discharge Date: 09/08/2023 05:03:00 PM ATTENTION: The Clinical Documentation Specialists (CDI) and [facility] Coding Staff appreciate your assistance in clarifying documentation. Please respond to the clarification below the line at the bottom and electronically sign. The CDI & [facility] Coding staff will review the response and follow-up if needed. Please note: Queries are made part of the Legal Health Record. If you have any questions, please contact the author of this message via ITS. Dr. Dayne Quezada, LVOT is documented in your query response as cause of chest pain. Please clarify. History/Risk Factors: Presented withchest pain,shortness of breath. He has a h/oMIs/pstent,COPD Clinical Indicators: Echocardiogram showed signs of LVH and dynamic LVOT obstruction with mean resting gradient of 44mmHg and systolic anterior motion of mitral leaflet. His ECG is consistent with the findings of LVH with deep T wave inversions in anteroseptal leads. Treatment: adjusted BP medications, dcd Farixga Please clarify the relationship, if any, which is clinically appropriate for this patient: [ ] LVOT related to left ventricular heart failure, unspecified [ ] LVOT related to obstructive hypertrophic cardiomyopathy [ ] Other explanation of clinical findings (please specify) [ ] Unable to determine (no explanation for clinical findings) MTDD
== END 2023-09-08 17:03 | disposition home or self-care (01) | DRG 315 ==
LOC: EC 09:55 → 3SCARD 11:37
PROVIDERS: ADMIT Family Medicine; ATTEND Family Medicine
DX: I42.1 Obstructive hypertrophic cardiomyopathy (principal); F11.20 Opioid dependence, uncomplicated; J44.1 Chronic obstructive pulmonary disease with (acute) exacerbation; R64 Cachexia; J98.11 Atelectasis; I11.9 Hypertensive heart disease without heart failure; F31.9 Bipolar disorder, unspecified; I34.0 Nonrheumatic mitral (valve) insufficiency; F14.10 Cocaine abuse, uncomplicated; I25.10 Atherosclerotic heart disease of native coronary artery without angina pectoris; E78.5 Hyperlipidemia, unspecified; I25.2 Old myocardial infarction; N40.0 Benign prostatic hyperplasia without lower urinary tract symptoms; F41.9 Anxiety disorder, unspecified; F90.9 Attention-deficit hyperactivity disorder, unspecified type; K21.9 Gastro-esophageal reflux disease without esophagitis; I83.90 Asymptomatic varicose veins of unspecified lower extremity; R91.1 Solitary pulmonary nodule; F17.200 Nicotine dependence, unspecified, uncomplicated; Z71.6 Tobacco abuse counseling; Z79.82 Long term (current) use of aspirin; Z79.899 Other long term (current) drug therapy; Z95.5 Presence of coronary angioplasty implant and graft; Z91.041 Radiographic dye allergy status
CPT/HCPCS: 36415; 71045; 80048; 80053; 81003; 83690; 83735; 83880; 84484; 85025; 85610; 85730; 87636; 93005; 93306; 94640; 94760; 96361; 96374; 96375; 99291

== ENCOUNTER 2023-09-21 10:56 | Inpatient (IN) | payer MEDICARE ==
--- NOTE | 2023-09-21 11:19 | ED ---
General Adult HPI - General Chief complaint: Chest Pain Stated complaint: chest pain Time Seen by Provider: 09/21/23 11:00 Source: patient, RN notes reviewed, old records reviewed Mode of arrival: ambulatory Limitations: no limitations - History of Present Illness Initial comments: This is a 73-year-old male who presents to the emergency department complaining that he is having chest pain. Patient states he was told he had a heart attack a few days ago and was scheduled for cardiac catheterization next week. Patient states the chest pain came back this morning it radiated to his back he became very short of breath so he came to the emergency department. Patient states the back pain is gone but he still has chest pain. Patient states he was a smoker and does have high blood pressure. Patient denies any recent fever chills or cough or patient has any abdominal pain patient has nausea vomiting diarrhea. - Related Data Home Medications Medication Instructions Recorded Confirmed Tamsulosin HCl [Flomax] 0.4 mg PO DAILY 07/18/17 09/06/23 Buprenorphine HCl/Naloxone HCl 0.5 film SL BID 01/18/22 09/06/23 [Suboxone 8 mg-2 mg Sl Film] Multivitamins, Thera [Multivitamin 1 tab PO DAILY 01/18/22 09/06/23 (formulary)] Omeprazole 20 mg PO DAILY 01/18/22 09/06/23 Acetaminophen Tab [Tylenol] 1,000 mg PO Q6HR PRN 05/31/22 09/06/23 Albuterol Inhaler [Ventolin Hfa 2 puff INHALATION RT-Q6H PRN 09/06/23 09/06/23 Inhaler] Dicyclomine [Bentyl] 10 mg PO TID PRN 09/06/23 09/06/23 buPROPion XL [Wellbutrin XL] 150 mg PO DAILY 09/06/23 09/06/23 busPIRone HCl [Buspar] 10 mg PO TID PRN 09/06/23 09/06/23 Previous Rx's Medication Instructions Recorded Aspirin 81 mg PO DAILY #30 chew 07/19/17 Nitroglycerin Sl Tabs [Nitrostat] 0.4 mg SUBLINGUAL Q5M PRN #30 tab 09/20/17 Atorvastatin [Lipitor] 80 mg PO HS #30 tab 09/08/23 Budesonide-Formot 160-4.5 Mcg 2 puff INHALATION RT-BID #1 each 09/08/23 [Symbicort 160-4.5 Mcg Inhaler] Dapagliflozin Propanediol [Farxiga] 10 mg PO DAILY #30 tab 09/08/23 carvediloL [Coreg] 6.25 mg PO BID-W/MEALS #60 tab 09/08/23 Allergies Allergy/AdvReac Type Severity Reaction Status Date / Time IV DYE Allergy Rash/Hives Uncoded 09/21/23 11:00 Review of Systems ROS Statement: Those systems with pertinent positive or pertinent negative responses have been documented in the HPI. ROS Other: All systems not noted in ROS Statement are negative. Past Medical History Past Medical History: Chest Pain / Angina, GERD/Reflux, Hyperlipidemia, Hypertension, Myocardial Infarction (SD), Prostate Disorder Additional Past Medical History / Comment(s): "Blurry vision, need glasses." Varicose veins. Last Myocardial Infarction Date:: 2017 History of Any Multi-Drug Resistant Organisms: None Reported Past Surgical History: Heart Catheterization With Stent Additional Past Surgical History / Comment(s): stent X2. HEMORROIDECTOMY. PROSTATE SURGERY, BPH. COLONOSCOPY Past Anesthesia/Blood Transfusion Reactions: No Reported Reaction Date of Last Stent Placement:: ? -approx 15 yrs Past Psychological History: ADD/ADHD, Anxiety, Bipolar, Depression Smoking Status: Current every day smoker Past Alcohol Use History: Occasional Past Drug Use History: Cocaine, Marijuana, Methamphetamine - Past Family History Father History Unknown: Yes Family Medical History: Cancer, CVA/TIA Additional Family Medical History / Comment(s): . Mother History Unknown: Yes Family Medical History: Cancer Additional Family Medical History / Comment(s): Lung cancer. Brother(s) History Unknown: Yes Family Medical History: Cancer Additional Family Medical History / Comment(s): Lung Cancer. General Exam - General Exam Comments Initial Comments: GENERAL: Patient is well-developed and well-nourished. Patient is nontoxic and well- hydrated and is in mild distress. ENT: Neck is soft and supple. No significant lymphadenopathy is noted. Oropharynx is clear. Moist mucous membranes. Neck has full range of motion without eliciting any pain. EYES: The sclera were anicteric and conjunctiva were pink and moist. Extraocular movements were intact and pupils were equal round and reactive to light. Eyelids were unremarkable. PULMONARY: Unlabored respirations. Good breath sounds bilaterally. No audible rales rhonchi or wheezing was noted. CARDIOVASCULAR: There is a regular rate and rhythm without any murmurs gallops or rubs. ABDOMEN: Soft and nontender with normal bowel sounds. SKIN: Skin is clear with no lesions or rashes and otherwise unremarkable. NEUROLOGIC: Patient is alert and oriented x3. Cranial nerves II through XII are grossly intact. Motor and sensory are also intact. Normal speech, volume and content. Symmetrical smile. MUSCULOSKELETAL: Normal extremities with adequate strength and full range of motion. No lower extremity swelling or edema. No calf tenderness. LYMPHATICS: No significant lymphadenopathy is noted PSYCHIATRIC: Normal psychiatric evaluation. Limitations: no limitations Course Vital Signs 09/21/23 09/21/23 09/21/23 10:57 11:04 11:22 Temperature 98.1 F Pulse Rate 56 L 50 L Pulse Rate [ 51 L Locker Room Supervisor ] Respiratory 20 18 Rate Blood Pressure 160/83 174/96 O2 Sat by Pulse 99 99 Oximetry 09/21/23 09/21/23 09/21/23 11:48 12:00 13:00 Temperature Pulse Rate 52 L 56 L 57 L Pulse Rate [ Locker Room Supervisor ] Respiratory 18 18 18 Rate Blood Pressure 171/92 163/95 166/98 O2 Sat by Pulse 97 95 95 Oximetry Medical Decision Making - Medical Decision Making EKG is interpreted by myself but EKG shows a sinus bradycardia 51 bpm parables 226 QRS is 105 QT interval is 450 QTc is 425. Patient's EKG shows diffuse T wa ve inversions however this was similar to an old EKG. Was pt. sent in by a medical professional or institution (, PA, BINDERY TECHNICIAN, urgent care, hospital, or intermediate...) When possible be specific @ -No Did you speak to anyone other than the patient for history (EMS, parent, family, police, friend...)? What history was obtained from this source @ -No Did you review nursing and triage notes (agree or disagree)? Why? @ -I reviewed and agree with nursing and triage notes Were old charts reviewed (outside hosp., previous admission, EMS record, old EKG, old radiological studies, urgent care reports/EKG's, intermediate records)? Report findings @ -Patient was here recently I reviewed the EKG and compared to today's EKG no abnormalities noted. I compared electrolytes on the lab work with today's lab work and there were no significant abnormalities. Differential Diagnosis (chest pain, altered mental status, abdominal pain women, abdominal pain men, vaginal bleeding, weakness, fever, dyspnea, syncope, headache, dizziness, GI bleed, back pain, seizure, CVA, palpatations, mental health, musculoskeletal)? @ -Differential Chest Pain: Stable Angina, Unstable Angina, STEMI, NSTEMI Aortic Dissection, Pneumothorax, Musculoskeletal, Esophageal Spasm GERD, Cholecystitis, Pancreatitis, Zoster, th is is not meant to be an all-inclusive list. EKG interpreted by me (3pts min.). @ -As above X-rays interpreted by me (1pt min.). @ -None done CT interpreted by me (1pt min.). @ -None done U/S interpreted by me (1pt. min.). @ -None done What testing was considered but not performed or refused? (CT, X-rays, U/S, labs)? Why? @ -None What meds were considered but not given or refused? Why? @ -None Did you discuss the management of the patient with other professionals (professionals i.e. , PA, BINDERY TECHNICIAN, lab, RT, psych nurse, social media community manager, headliner installer, teacher, alumni relations officer, caser up)? Give summary @ -I spoke with Dr. Andujar and he agreed to admit the patient Was smoking cessation discussed for >3mins.? @ -No Was critical care preformed (if so, how long)? @ -35 minutes Were there social determinants of health that impacted care today? How? (Homelessness, low income, unemployed, alcoholism, drug addiction, transportation, low edu. Level, literacy, decrease access to med. care, residential, rehab)? @ -No Was there de-escalation of care discussed even if they declined (Discuss DNR or withdrawal of care, Hospice)? DNR status @ -No What co-morbidities impacted this encounter? (DM, HTN, Smoking, COPD, CAD, Cancer, CVA, ARF, Chemo, Hep., AIDS, mental health diagnosis, sleep apnea, morbid obesity)? @ -None Was patient admitted / discharged? Hospital course, mention meds given and route, prescriptions, significant lab abnormalities, going to OR and other pertinent info. @ -Patient was given aspirin and Nitropaste as well as heparin because he had an elevated troponin and he has a history of significant coronary artery disease. I spoke with Dr. Andujar and he agreed to admit the patient admitted the patient and I wrote admitting orders and I also consulted cardiology Undiagnosed new problem with uncertain prognosis? @ -No Drug Therapy requiring intensive monitoring for toxicity (Heparin, Nitro, Insulin, Cardizem)? @ -No Were any procedures done? @ -No Diagnosis/symptom? @ -Unstable Acute, or Chronic, or Acute on Chronic? @ -Acute Uncomplicated (without systemic symptoms) or Complicated (systemic symptoms)? @ -Complicated Side effects of treatment? @ -No Exacerbation, Progression, or Severe Exacerbation? @ -No Poses a threat to life or bodily function? How? (Chest pain, USA, SD, pneumonia, PE, COPD, DKA, ARF, appy, cholecystitis, CVA, Diverticulitis, Homicidal, Suicidal, threat to staff... and all critical care pts) @ -Yes this can lead to endorgan dysfunction secondary to an SD - Lab Data Result diagrams: 09/21/23 11:15 09/21/23 11:15 Lab Results 09/21/23 09/21/23 09/21/23 Range/Units 11:15 11:15 11:15 WBC 8.6 (3.8-10.6) k/uL RBC 3.90 L (4.30-5.90) m/uL Hgb 12.3 L (13.0-17.5) gm/dL Hct 38.1 L (39.0-53.0) % MCV 97.6 (80.0-100.0) fL MCH 31.5 (25.0-35.0) pg MCHC 32.2 (31.0-37.0) g/dL RDW 13.7 (11.5-15.5) % Plt Count 304 (150-450) k/uL MPV 9.0 Neutrophils % 72 % Lymphocytes % 14 % Monocytes % 6 % Eosinophils % 3 % Basophils % 1 % Neutrophils # 6.2 (1.3-7.7) k/uL Lymphocytes # 1.2 (1.0-4.8) k/uL Monocytes # 0.5 (0-1.0) k/uL Eosinophils # 0.3 (0-0.7) k/uL Basophils # 0.1 (0-0.2) k/uL PT 10.6 (10.0-12.5) sec INR 1.0 (<1.2) APTT 25.0 (22.0-30.0) sec Sodium 139 (137-145) mmol/L Potassium 4.5 (3.5-5.1) mmol/L Chloride 107 (98-107) mmol/L Carbon Dioxide 27 (22-30) mmol/L Anion Gap 5 mmol/L BUN 17 (9-20) mg/dL Creatinine 0.62 L (0.66-1.25) mg/dL Est GFR (CKD-EPI)AfAm >90 (>60 ml/min/1.73 sqM) Est GFR (CKD-EPI)NonAf >90 (>60 ml/min/1.73 sqM) Glucose 89 (74-99) mg/dL Calcium 9.4 (8.4-10.2) mg/dL Magnesium 1.8 (1.6-2.3) mg/dL Total Bilirubin 0.4 (0.2-1.3) mg/dL AST 30 (17-59) U/L ALT 21 (4-49) U/L Alkaline Phosphatase 67 (38-126) U/L Troponin I (0.000-0.034) ng/mL Total Protein 6.8 (6.3-8.2) g/dL Albumin 3.9 (3.5-5.0) g/dL 09/21/23 Range/Units 11:15 WBC (3.8-10.6) k/uL RBC (4.30-5.90) m/uL Hgb (13.0-17.5) gm/dL Hct (39.0-53.0) % MCV (80.0-100.0) fL MCH (25.0-35.0) pg MCHC (31.0-37.0) g/dL RDW (11.5-15.5) % Plt Count (150-450) k/uL MPV Neutrophils % % Lymphocytes % % Monocytes % % Eosinophils % % Basophils % % Neutrophils # (1.3-7.7) k/uL Lymphocytes # (1.0-4.8) k/uL Monocytes # (0-1.0) k/uL Eosinophils # (0-0.7) k/uL Basophils # (0-0.2) k/uL PT (10.0-12.5) sec INR (<1.2) APTT (22.0-30.0) sec Sodium (137-145) mmol/L Potassium (3.5-5.1) mmol/L Chloride (98-107) mmol/L Carbon Dioxide (22-30) mmol/L Anion Gap mmol/L BUN (9-20) mg/dL Creatinine (0.66-1.25) mg/dL Est GFR (CKD-EPI)AfAm (>60 ml/min/1.73 sqM) Est GFR (CKD-EPI)NonAf (>60 ml/min/1.73 sqM) Glucose (74-99) mg/dL Calcium (8.4-10.2) mg/dL Magnesium (1.6-2.3) mg/dL Total Bilirubin (0.2-1.3) mg/dL AST (17-59) U/L ALT (4-49) U/L Alkaline Phosphatase (38-126) U/L Troponin I 0.058 H* (0.000-0.034) ng/mL Total Protein (6.3-8.2) g/dL Albumin (3.5-5.0) g/dL Critical Care Time Critical Care Time: Yes Total Critical Care Time: 35 Disposition Clinical Impression: Unstable angina Disposition: ADMITTED IP TO THIS HOSP Referrals: Tra Lopez MD [Primary Care Provider] - 1-2 days Time of Disposition: 13:19
[2023-09-21] MEDS: ASPIRIN 81 MG PO STA (11:22)
[2023-09-21] MEDS: NITROGLYCERIN OINT 1 INCH/GM PACKET TOPICAL STA (11:23)
[2023-09-21] MEDS: NITROGLYCERIN SL TABS 0.4 MG TAB SUBLINGUAL STA (11:23)
[2023-09-21 11:28] LABS: Basophils # (A) 0.1 k/uL (0-0.2); Basophils % (A) 1 %; Eosinophils # (A) 0.3 k/uL (0-0.7); Eosinophils % (A) 3 %; HCT 38.1 % (39.0-53.0); HGB 12.3 gm/dL (13.0-17.5); Lymphocytes # (A) 1.2 k/uL (1.0-4.8); Lymphocytes % (A) 14 %; MCH 31.5 pg (25.0-35.0); MCHC 32.2 g/dL (31.0-37.0); MCV 97.6 fL (80.0-100.0); Monocytes # (A) 0.5 k/uL (0-1.0); Monocytes % (A) 6 %; Neutrophils # (A) 6.2 k/uL (1.3-7.7); Neutrophils % (A) 72 %; Platelet Count 304 k/uL (150-450); RDW 13.7 % (11.5-15.5); WBC 8.6 k/uL (3.8-10.6)
[2023-09-21 11:36] LABS: Prothrombin Time 10.6 sec (10.0-12.5)
[2023-09-21 11:39] LABS: ALT 21 U/L (4-49); AST 30 U/L (17-59); African American GFR (CKD) >90 (>60 ml/min/1.73 sqM); Albumin 3.9 g/dL (3.5-5.0); Alkaline Phosphatase 67 U/L (38-126); Anion Gap 5 mmol/L; Blood Urea Nitrogen 17 mg/dL (9-20); Calcium 9.4 mg/dL (8.4-10.2); Carbon Dioxide 27 mmol/L (22-30); Chloride 107 mmol/L (98-107); Glucose 89 mg/dL (74-99); Magnesium 1.8 mg/dL (1.6-2.3); Non-African American GFR(CKD) >90 (>60 ml/min/1.73 sqM); Potassium 4.5 mmol/L (3.5-5.1); Sodium 139 mmol/L (137-145); Total Bilirubin 0.4 mg/dL (0.2-1.3); Total Protein 6.8 g/dL (6.3-8.2)
--- NOTE | 2023-09-21 12:17 | XR ---
EXAMINATION TYPE: XR chest 2V DATE OF EXAM: 09/21/2023 COMPARISON: 09/06/2023 TECHNIQUE: PA and lateral views submitted. HISTORY: Pain FINDINGS: The lungs are clear and there is no pneumothorax, pleural effusion, or focal pneumonia. Heart size normal and no overt failure. Osseous structures demonstrate hypertrophic and degenerative changes of the spine. Bibasilar consolidation favor atelectasis over pneumonia. Retrocardiac nodule previously n oted stable measuring 1 cm. Previous vertebral plasty suggested. IMPRESSION: 1. Favor bilateral lower lobe atelectasis over pneumonia. 2. There is a 1 cm nodule overlying the right cardiac region. Short-term follow-up chest CT recommend ed..
[2023-09-21] MEDS ORDERED: NITROGLYCERIN SL TABS 0.4 MG TAB SUBLINGUAL PRN ×2 (13:22→15:53)
[2023-09-21] MEDS ORDERED: DICYCLOMINE 10 MG CAP PO PRN (15:53)
[2023-09-21] MEDS ORDERED: ALBUTEROL NEBULIZED 2.5 MG/3 ML INHALATION PRN (15:53)
[2023-09-21] MEDS ORDERED: busPIRone HCl 10 MG TAB PO PRN (15:53)
[2023-09-21] MEDS: HEPARIN SODIUM 1,000 UN/ML (10ML VL) IV ONE (16:29)
[2023-09-21] MEDS: HEPARIN SOD,PORK IN 0.45% NACL 25,000 UNIT in 0.45% NACL 1 250ML.BAG IV SCH (16:34)
[2023-09-21] MEDS: NITROGLYCERIN OINT 1 INCH/GM PACKET TOPICAL SCH (18:11)
[2023-09-21] MEDS: carvediloL 6.25 MG TAB PO SCH (18:19)
[2023-09-21] MEDS: SYMBICORT 160-4.5 MCG INHALER INHALATION SCH (20:11)
[2023-09-21] MEDS: TAMSULOSIN 0.4 MG CAP.ER.24H PO SCH (21:54)
[2023-09-21] MEDS: PATIENT'S OWN (Buprenorphine Hcl/Naloxone Hcl [Suboxone 8 Mg-2 Mg Sl Film] 1 EACH Fil SUBLINGUAL SCH (21:54)
[2023-09-21] MEDS: ATORVASTATIN 40 MG TAB PO SCH (21:54)
--- NOTE | 2023-09-21 22:12 | HP ---
HISTORY AND PHYSICAL CHIEF COMPLAINT: Chest pain and NSTEMI. HISTORY OF PRESENT ILLNESS: This is another recent admission for this 73-year-old white male. He was in the hospital 2 weeks ago with chest pain and elevated troponin. He was seen by Cardiology and discharged. He came back in with chest pain again and an elevated troponin. He has had an AR before and this was similar to his pain. He had anterior chest discomfort radiating into the left scapular area with shortness of breath and diaphoresis. REVIEW OF SYSTEMS: Otherwise unremarkable. He has had no syncope, confusion, palpitations, nausea, vomiting, etc. The remainder of his history is unremarkable and unchanged. PHYSICAL EXAMINATION: VITAL SIGNS: Blood pressure is 174/96 with a pulse of 88 and regular. HEAD, EARS, EYES, NOSE, MOUTH, AND THROAT: Normal. CHEST: Clear. CARDIAC: Normal sinus rhythm. ABDOMEN: Soft, nontender. EXTREMITIES: Normal. IMPRESSION: 1. Acute coronary syndrome with non ST elevation myocardial infarction to be ruled out. 2. Coronary artery disease. 3. Hypertension. PLAN: 1. Bed rest. 2. IV fluids. 3. Consult Cardiology. MMODL / IJN: [id number] /
[2023-09-21] MEDS: hydrALAZINE HCL 20 MG/ML 1 ML VIAL IVP SCH (22:46)
[2023-09-21] MEDS: ONDANSETRON 4 MG/2 ML VIAL IVP PRN (22:48)
--- NOTE | 2023-09-21 23:05 | CT ---
EXAM: CT Head Without Intravenous Contrast CLINICAL HISTORY: ITS.REASON CT Reason: CORONA/on heparin TECHNIQUE: Axial computed tomography images of the head/brain without intravenous contrast. CTDI is Compa49.2 mGy and DLP is 1093.4 mGy-cm. This CT exam was performed using one or more of the following dose reduction techniques: automated exposure control, adjustment of the mA and/or kV according to patient size, and/or use of iterative reconstruction technique. COMPARISON: No relevant prior studies available. FINDINGS: No acute intracranial hemorrhage. No midline shift or mass effect. The territorial franklin-white matter differentiation is maintained throughout. Age-related cerebral volume loss. Periventricular and subcortical white matter hypoattenuation, consistent with chronic microangiopathy. The visualized orbits appear grossly unremarkable. The calvarium is intact. The visualized paranasal sinuses and mastoid air cells are grossly clear. IMPRESSION: No acute intracranial hemorrhage, midline shift, or mass effect.
[2023-09-21] MEDS: buPROPion 100 MG TAB PO SCH (23:42)
[2023-09-22] MEDS: HEPARIN SODIUM 1,000 UN/ML (10ML VL) IV PRN (00:53)
[2023-09-22] MEDS: ACETAMINOPHEN TAB 500 MG TAB PO STA (06:18)
[2023-09-22] MEDS ORDERED: ASPIRIN 325 MG TAB PO SCH (09:00)
[2023-09-22] MEDS: PANTOPRAZOLE 40 MG TABLET PO SCH (09:19)
[2023-09-22] MEDS: ASPIRIN 81 MG PO SCH (09:19)
[2023-09-22] MEDS: DAPAGLIFLOZIN PROPANEDIOL 10 MG TABLET PO SCH (09:55)
--- NOTE | 2023-09-22 12:17 | P.CRDCN ---
History of Present Illness Consult date: 09/22/23 Consult reason: chest pain History of present illness: The patient is a 73-year-old male who presented to the emergency room with chest discomfort, headache, and vomiting. The patient was recently admitted for chest discomfort and recently had a follow-up in office with Dr. Jolly. According to the patient he will undergo stress testing for evaluation of coronary artery disease. DIAGNOSTICS: EKG shows sinus bradycardia with diffuse T wave inversions Chest x-ray shows bilateral lower lobe atelectasis CT scan of the brain shows no acute intracranial hemorrhage, midline shift, or mass effect Lab data: WBC 8.6, hemoglobin 12.3, hematocrit 38.1, platelet 304, sodium 139, potassium 4.5, BUN is 17, 0.62, magnesium 1.8, AST 30, ALT 20, troponin 0.05, 0.02, 0.06 Echocardiogram on 328 at 24 shows preserved LV function with moderate mitral regurgitation and thickening of valve leaflets. Moderate pulmonary hypertension with RVSP of 46 mmHg REVIEW OF SYSTEMS: No fever or chills. No cough or expectoration. No diaphoresis. Patient denies dizziness, blurred vision, double vision. Patient denies any stomach discomfort. No nausea, vomiting. No hematochezia. No hematemesis. Denies any black stools or blood in his stools. Denies dysuria or hematuria. No muscle weakness or numbness. No current chest discomfort. Positive for headache PHYSICAL EXAMINATION: This is a 73-year-old male in no apparent distress at the time of my examination. HEENT: Head is atraumatic, normocephalic. Pupils are equal, round. There is no jugular venous distention. No carotid bruit is heard. CHEST EXAMINATION: Lungs are diminished to auscultation. No chest wall tenderness is noted on palpation or with deep breathing. HEART EXAMINATION: Heart regular rate and rhythm. S1, S2 heard. Systolic murmur. No gallops or rub. ABDOMEN: Soft, nontender. Bowel sounds are heard. No organomegaly noted. EXTREMITIES: 2+ peripheral pulses with no evidence of peripheral edema and no calf tenderness noted. NEUROLOGIC EXAMINATION: Patient is awake, alert and oriented x3. FINAL ASSESSMENT AND PLAN: Chest discomfort, recurrent History of intermediate coronary artery disease History of mitral regurgitation History of smoking Dyslipidemia PLAN: Continue heparin drip Resume home cardiac medications Hold carvedilol for heart rate less than 49bpm Proceed with coronary angiogram on Sunday/Sunday with Dr. Jolly I am dictating on behalf of Dr Darren Strong's history/physical and assessment/plan. Past Medical History Past Medical History: Chest Pain / Angina, GERD/Reflux, Hyperlipidemia, Hypertension, Myocardial Infarction ([place]), Prostate Disorder Additional Past Medical History / Comment(s): "Blurry vision, need glasses." Varicose veins. Last Myocardial Infarction Date:: 2017 History of Any Multi-Drug Resistant Organisms: None Reported Past Surgical History: Heart Catheterization With Stent Additional Past Surgical History / Comment(s): stent X2. HEMORROIDECTOMY. PROSTATE SURGERY, BPH. COLONOSCOPY Past Anesthesia/Blood Transfusion Reactions: No Reported Reaction Date of Last Stent Placement:: ? -approx 15 yrs Past Psychological History: ADD/ADHD, Anxiety, Bipolar, Depression Smoking Status: Current every day smoker Past Alcohol Use History: Occasional Past Drug Use History: Cocaine, Marijuana, Methamphetamine - Past Family History Father History Unknown: Yes Family Medical History: Cancer, CVA/TIA Additional Family Medical History / Comment(s): . Mother History Unknown: Yes Family Medical History: Cancer Additional Family Medical History / Comment(s): Lung cancer. Brother(s) History Unknown: Yes Family Medical History: Cancer Additional Family Medical History / Comment(s): Lung Cancer. Medications and Allergies Home Medications Medication Instructions Recorded Confirmed Type Tamsulosin HCl [Flomax] 0.4 mg PO HS 07/18/17 09/21/23 History Buprenorphine HCl/Naloxone HCl 0.5 film SL BID 01/18/22 09/21/23 History [Suboxone 8 mg-2 mg Sl Film] Multivitamins, Thera [Multivitamin 1 tab PO DAILY 01/18/22 09/21/23 History (formulary)] Albuterol Inhaler [Ventolin Hfa 2 puff INHALATION RT-QID PRN 09/06/23 09/21/23 History Inhaler] Dicyclomine [Bentyl] 10 mg PO TID PRN 09/06/23 09/21/23 History busPIRone HCl [Buspar] 10 mg PO TID PRN 09/06/23 09/21/23 History Budesonide-Formot 160-4.5 Mcg 2 puff INHALATION RT-BID #1 each 09/08/23 09/21/23 Rx [Symbicort 160-4.5 Mcg Inhaler] Dapagliflozin Propanediol [Farxiga] 10 mg PO DAILY #30 tab 09/08/23 09/21/23 Rx carvediloL [Coreg] 6.25 mg PO BID-W/MEALS #60 tab 09/08/23 09/21/23 Rx Aspirin EC [Ecotrin Low Dose] 81 mg PO DAILY 09/21/23 09/21/23 History Atorvastatin [Lipitor] 40 mg PO HS 09/21/23 09/21/23 History Nitroglycerin Sl Tabs [Nitrostat] 0.4 mg SL Q5M PRN 09/21/23 09/21/23 History [place] Xl Joint & Muscle Support 1 cap PO DAILY 09/21/23 09/21/23 History Pantoprazole [Protonix] 40 mg PO DAILY 09/21/23 09/21/23 History buPROPion [Wellbutrin] 100 mg PO BID 09/21/23 09/21/23 History Allergies Allergy/AdvReac Type Severity Reaction Status Date / Time IV DYE Allergy Rash/Hives Uncoded 09/21/23 14:21 Physical Exam Vitals: Vital Signs Temp Pulse Resp BP Pulse Ox 09/22/23 10:08 59 L 18 122/77 97 09/22/23 09:16 56 L 18 153/90 96 09/22/23 07:39 96 09/22/23 07:19 50 L 16 143/89 98 09/22/23 06:07 50 L 18 143/89 95 09/22/23 03:47 58 L 18 121/81 09/22/23 02:30 54 L 12 116/81 98 09/22/23 01:30 56 L 12 143/81 98 09/22/23 00:57 52 L 17 144/89 97 09/21/23 23:41 59 L 13 142/89 95 09/21/23 22:52 97.7 F 49 L 17 159/93 97 09/21/23 22:13 43 L 16 180/108 97 09/21/23 21:50 48 L 18 175/112 96 09/21/23 18:00 58 L 18 164/96 09/21/23 17:00 54 L 18 159/96 09/21/23 16:00 54 L 18 131/105 95 09/21/23 15:00 55 L 18 95 09/21/23 14:00 54 L 18 166/98 95 09/21/23 13:00 57 L 18 166/98 95 Intake and Output 09/21/23 09/22/23 09/22/23 22:59 06:59 14:59 Intake Total 49.892 56.005 Balance 49.892 56.005 Intake: Intake, IV Titration 49.892 56.005 Amount Heparin Sod,Pork in 0.45% 49.892 56.005 NaCl 25,000 unit In 0.45 % NaCl 1 250ml.bag @ 12 UNITS/KG/HR 5.987 mls/hr IV .Q24H [facility] Rx#: [id number] Results 09/21/23 11:15 09/21/23 11:15 Cardiac Enzymes 09/21/23 09/21/23 Range/Units 13:55 16:30 Troponin I 0.028 0.065 H* (0.000-0.034) ng/mL Coagulation 09/21/23 09/22/23 Range/Units 23:13 07:11 APTT 26.8 37.8 H (22.0-30.0) sec Current Medications Generic Name Dose Route Start Last Admin Trade Name Freq PRN Reason Stop Dose Admin Albuterol Sulfate 2.5 mg 09/21/23 15:53 Albuterol Nebulized 2.5 Mg/3 Ml INHALATION RT-QID PRN Shortness Of Breath Aspirin 81 mg 09/22/23 09:00 09/22/23 09:19 Aspirin 81 Mg PO 81 mg DAILY [facility] Administration Atorvastatin Calcium 40 mg 09/21/23 21:00 09/21/23 21:54 Atorvastatin 40 Mg Tab PO 40 mg HS [facility] Administration Budesonide/Formoterol Fumarate 2 puff 09/21/23 20:00 09/22/23 07:39 Symbicort 160-4.5 Mcg Inhaler INHALATION 2 puff RT-BID [facility] Administration Bupropion HCl 100 mg 09/21/23 21:00 09/22/23 09:19 Bupropion 100 Mg Tab PO 100 mg BID [facility]A Administration Buspirone HCl 10 mg 09/21/23 15:53 Buspirone Hcl 10 Mg Tab PO TID PRN Anxiety Carvedilol 6.25 mg 09/21/23 17:30 09/22/23 10:31 Carvedilol 6.25 Mg Tab PO 6.25 mg BID-W/MEALS [facility] Administration Dapagliflozin 10 mg 09/22/23 09:00 09/22/23 09:55 Dapagliflozin Propanediol 10 Mg Tablet PO 10 mg DAILY [facility] Administration Dicyclomine HCl 10 mg 09/21/23 15:53 Dicyclomine 10 Mg Cap PO TID PRN cramps/gi upset Heparin Sodium (Porcine) 0 unit 09/22/23 00:42 09/22/23 08:24 Heparin Sodium 1,000 Un/Ml (10ml Vl) IV 1,247.375 unit Q6HR PRN Administration Low PTT Protocol Hydralazine HCl 10 mg 09/22/23 00:00 09/22/23 09:19 Hydralazine Hcl 20 Mg/Ml 1 Ml Vial IVP 10 mg Q8HR [facility] Administration Heparin Sodium/Sodium Chloride 250 mls @ 5.987 mls/hr 09/21/23 13:30 09/22/23 08:23 25,000 unit/ Sodium Chloride IV 17 units/kg/hr .Q24H [facility] 8.482 mls/hr Titration Protocol 12 UNITS/KG/HR Nitroglycerin 1 inch 09/21/23 18:00 09/22/23 11:54 Nitroglycerin Oint 1 Inch/Gm Packet TOPICAL Not Given Q6HR [facility] Nitroglycerin 0.4 mg 09/21/23 15:53 Nitroglycerin Sl Tabs 0.4 Mg Tab SUBLINGUAL Q5M PRN Chest Pain Patient's Own ( 0.5 film 09/21/23 21:00 09/22/23 09:56 Buprenorphine Hcl/ SUBLINGUAL 0.5 film Naloxone Hcl [ BID [facility] Administration Suboxone 8 Mg-2 Mg Sl Film] 1 Each Nixon Ondansetron HCl 4 mg 09/21/23 22:40 09/21/23 22:48 Ondansetron 4 Mg/2 Ml Vial IVP 4 mg Q6HR PRN Administration Nausea And Vomiting Pantoprazole Sodium 40 mg 09/22/23 09:00 09/22/23 09:19 Pantoprazole 40 Mg Tablet PO 40 mg DAILY [facility] Administration Tamsulosin HCl 0.4 mg 09/21/23 21:00 09/21/23 21:54 Tamsulosin 0.4 Mg Cap.Er.24h PO 0.4 mg HS [facility] Administration Intake and Output 09/21/23 09/22/23 09/22/23 22:59 06:59 14:59 Intake Total 49.892 56.005 Balance 49.892 56.005 Intake: Intake, IV Titration 49.892 56.005 Amount Heparin Sod,Pork in 0.45% 49.892 56.005 NaCl 25,000 unit In 0.45 % NaCl 1 250ml.bag @ 12 UNITS/KG/HR 5.987 mls/hr IV .Q24H [facility] Rx#: [id number] 09/21/23 11:15 09/21/23 11:15
[2023-09-22] MEDS: ACETAMINOPHEN TAB 325 MG TAB PO PRN (13:49)
[2023-09-22 13:50] LABS: Chol/HDL Ratio 1.85 Ratio; LDL Cholesterol,Calculated 48.8 mg/dL (0.0-131.0)
[2023-09-22] MEDS: HYDROcodone/APAP 5-325MG 1 EACH TAB PO PRN (18:04)
[2023-09-22] MEDS: SUMAtriptan succinate 50 MG TAB PO STA (18:22)
--- NOTE | 2023-09-22 20:48 | PN ---
PROGRESS NOTE DATE OF SERVICE: 09/22/2023 CHIEF COMPLAINT: Chest pain, coronary artery disease, NSTEMI, and headache. HISTORY OF PRESENT ILLNESS: This gentleman has had some issues. During the night, he developed a severe headache with elevated blood pressure and bradycardia. Because he was on an anticoagulant, he underwent a CT without contrast, which failed to demonstrate any bleeding. He has not had any chest pain. He has been doing well during the day and then late this afternoon, he started to develop the headache again. PHYSICAL EXAMINATION: VITAL SIGNS: Blood pressure is still slightly elevated with systolic around 160. HEAD, EARS, EYES, NOSE, MOUTH, AND THROAT: Normal. NECK: Supple. CHEST: Clear. CARDIAC: Reveals a grade 3 systolic murmur loudest at the apex, which was not heard before. ABDOMEN: Soft, nontender. IMPRESSION: 1. Non ST elevation myocardial infarction. 2. Coronary artery disease. 3. Headache, etiology unknown. 4. Chronic obstructive pulmonary disease. 5. Cardiac murmur. PLAN: 1. Give a trial of Imitrex 100 mg 1 time. 2. Vicodin p.r.n. 3. Increase hydralazine to 25 mg 3 times a day. MMODL / IJN: [id number] /
[2023-09-22] MEDS: hydrALAZINE HCL 25 MG TAB PO SCH (21:16)
[2023-09-23] MEDS ORDERED: ALPRAZolam 0.25 MG TAB PO PRN (09:58)
[2023-09-23] MEDS ORDERED: NITROGLYCERIN SL TABS 0.4 MG TAB SUBLINGUAL PRN (09:58)
--- NOTE | 2023-09-23 10:01 | P.PN ---
Subjective Progress Note Date: 09/23/23 Consult reason: chest pain History of present illness: The patient is a 73-year-old male who presented to the emergency room with chest discomfort, headache, and vomiting. The patient was recently admitted for chest discomfort and recently had a follow-up in office with Dr. Jolly. According to the patient he will undergo stress testing for evaluation of coronary artery disease. DIAGNOSTICS: EKG shows sinus bradycardia with diffuse T wave inversions Chest x-ray shows bilateral lower lobe atelectasis CT scan of the brain shows no acute intracranial hemorrhage, midline shift, or mass effect Lab data: WBC 8.6, hemoglobin 12.3, hematocrit 38.1, platelet 304, sodium 139, potassium 4.5, BUN is 17, 0.62, magnesium 1.8, AST 30, ALT 20, troponin 0.05, 0.02, 0.06 Echocardiogram on 328 at 24 shows preserved LV function with moderate mitral regurgitation and thickening of valve leaflets. Moderate pulmonary hypertension with RVSP of 46 mmHg 09/22 Patient is seen today on the cardiac stepdown unit. Patient is maintained on heparin drip with plan for cardiac catheterization with Dr. Jolly. Blood pressure 150/93, heart rate 56, pulse ox 94% on room air. Patient denies having any chest pain, shortness of breath. Uncontrolled hypertension PHYSICAL EXAMINATION: This is a 73-year-old male in no apparent distress at the time of my examination. HEENT: Head is atraumatic, normocephalic. Pupils are equal, round. There is no jugular venous distention. No carotid bruit is heard. CHEST EXAMINATION: Lungs are diminished to auscultation. No chest wall tenderness is noted on palpation or with deep breathing. HEART EXAMINATION: Heart regular rate and rhythm. S1, S2 heard. Systolic murmur. No gallops or rub. ABDOMEN: Soft, nontender. Bowel sounds are heard. No organomegaly noted. EXTREMITIES: 2+ peripheral pulses with no evidence of peripheral edema and no calf tenderness noted. NEUROLOGIC EXAMINATION: Patient is awake, alert and oriented x3. FINAL ASSESSMENT AND PLAN: Chest discomfort, recurrent History of intermediate coronary artery disease History of mitral regurgitation History of smoking Dyslipidemia PLAN: Discontinue heparin drip Continue home cardiac medications Hold carvedilol for heart rate less than 49bpm Start amlodipine 2.5 mg daily Proceed with coronary angiogram on Sunday with Dr. Jolly Nurse practitioner note has been reviewed, I agree with documented findings and plan of care. Patient was seen and examined. Objective - Vital Signs Vital signs: Vital Signs Temp 98.4 F 09/23/23 07:48 Pulse 56 L 09/23/23 07:48 Resp 17 09/23/23 07:48 BP 150/93 09/23/23 07:48 Pulse Ox 94 L 09/23/23 07:48 FiO2 Intake & Output 09/22/23 09/23/23 09/23/23 18:59 06:59 18:59 Intake Total 144.002 Output Total 300 Balance -155.998 Weight 49.895 kg Intake: Intake, IV Titration 144.002 Amount Heparin Sod,Pork in 0.45% 144.002 NaCl 25,000 unit In 0.45 % NaCl 1 250ml.bag @ 12 UNITS/KG/HR 5.987 mls/hr IV .Q24H [facility] Rx#: [id number] Output: Urine 300 Other: Voiding Method Toilet - Labs CBC & Chem 7: 09/21/23 11:15 09/21/23 11:15 Labs: Abnormal Lab Results - Last 24 Hours (Table) 09/22/23 09/22/23 09/22/23 Range/Units 07:11 14:17 21:13 APTT 38.2 H 46.0 H (22.0-30.0) sec HDL Cholesterol 67.60 H (40.00-60.00) mg/dL
[2023-09-23] MEDS: amLODIPine 2.5 MG TAB PO SCH (10:04)
[2023-09-23 10:24] LABS: HCT 48.3 % (39.0-53.0); HGB 14.9 gm/dL (13.0-17.5); MCH 30.6 pg (25.0-35.0); MCHC 30.8 g/dL (31.0-37.0); MCV 99.2 fL (80.0-100.0); Mean Platelet Volume 8.5; Platelet Count 452 k/uL (150-450); RBC 4.87 m/uL (4.30-5.90); RDW 13.2 % (11.5-15.5); WBC 8.3 k/uL (3.8-10.6)
[2023-09-23 10:37] LABS: African American GFR (CKD) >90 (>60 ml/min/1.73 sqM); Anion Gap 13 mmol/L; Blood Urea Nitrogen 20 mg/dL (9-20); Calcium 10.4 mg/dL (8.4-10.2); Carbon Dioxide 24 mmol/L (22-30); Chloride 100 mmol/L (98-107); Glucose 100 mg/dL (74-99); Non-African American GFR(CKD) 89 (>60 ml/min/1.73 sqM); Potassium 4.4 mmol/L (3.5-5.1); Sodium 137 mmol/L (137-145)
--- NOTE | 2023-09-23 20:39 | PN ---
PROGRESS NOTE DATE OF SERVICE: 09/23/2023 CHIEF COMPLAINT: 1. NSTEMI. 2. Headache. HISTORY OF PRESENT ILLNESS: This gentleman is doing fairly well today. Last night, he once again had severe headache. This has gone today. PHYSICAL EXAMINATION: VITAL SIGNS: Normal. CHEST: Clear. CARDIAC: Unchanged with his usual murmur. ABDOMEN: Soft, nontender. IMPRESSION: 1. Non ST elevation myocardial infarction. 2. Coronary artery disease. 3. Chronic obstructive pulmonary disease. 4. Cardiac murmur. 5. Headache, etiology unknown. PLAN: No change in program and he is going tomorrow for cardiac cath. MMODL / IJN: [id number] /
[2023-09-23] MEDS: EMPTY BAG 1 BAG with SODIUM CHLORIDE 0.9% 1,000 ML IV ONE (23:47)
[2023-09-24] MEDS: ASPIRIN 325 MG TAB PO ONE (05:06)
[2023-09-24] MEDS: ATORVASTATIN 80 MG TAB PO ONE (05:06)
[2023-09-24] MEDS ORDERED: HEPARIN SODIUM,PORCINE (1 ML) 2,500 UNIT in SODIUM CHLORIDE 0.9% 250 ML IRRIGATION PRN (07:00)
[2023-09-24] MEDS ORDERED: HEPARIN SODIUM,PORCINE 10,000 UNIT in SODIUM CHLORIDE 0.9% 1,000 ML IRRIGATION PRN (07:00)
[2023-09-24] MEDS: ALPRAZolam 0.5 MG TAB PO PRN (10:39)
--- NOTE | 2023-09-24 12:16 | P.PN ---
Subjective HISTORY OF PRESENT ILLNESS: The patient is a 73-year-old male who presented to the emergency room with chest discomfort, headache, and vomiting. The patient was recently admitted for chest discomfort and recently had a follow-up in office with Dr. Jolly. According to the patient he will undergo stress testing for evaluation of coronary artery disease. DIAGNOSTICS: EKG shows sinus bradycardia with diffuse T wave inversions Chest x-ray shows bilateral lower lobe atelectasis CT scan of the brain shows no acute intracranial hemorrhage, midline shift, or mass effect Lab data: WBC 8.6, hemoglobin 12.3, hematocrit 38.1, platelet 304, sodium 139, potassium 4.5, BUN is 17, 0.62, magnesium 1.8, AST 30, ALT 20, troponin 0.05, 0.02, 0.06 Echocardiogram on 328 at 24 shows preserved LV function with moderate mitral regurgitation and thickening of valve leaflets. Moderate pulmonary hypertension with RVSP of 46 mmHg 09/22 Patient is seen today on the cardiac stepdown unit. Patient is maintained on heparin drip with plan for cardiac catheterization with Dr. Jolly. Blood pressure 150/93, heart rate 56, pulse ox 94% on room air. Patient denies having any chest pain, shortness of breath. Uncontrolled hypertension 09/24/2023 Patient examined this morning. Patient denies chest pain or pressure. Denies shortness of breath. Vital signs are stable. PHYSICAL EXAM: VITAL SIGNS: Reviewed. GENERAL: Well-developed in no acute distress. NECK: Supple. No JVD or thyromegaly LUNGS: Respirations even and unlabored. Lungs essentially clear to auscultation bilaterally. HEART: Regular rate and rhythm. S1 and S2 heard. EXTREMITIES: Normal range of motion. No clubbing or cyanosis. Peripheral pulses intact. No lower extremity edema ASSESSMENT: Chest discomfort, recurrent History of intermediate coronary artery disease History of mitral regurgitation History of smoking Dyslipidemia PLAN: Continue current cardiac medications Patient to undergo cardiac cath today with Dr. Jolly Further recommendations pending patient course Nurse practitioner note has been reviewed by physician. Signing provider agrees with the documented findings, assessment, and plan of care documented by DELIVERY TECH as a scribe. Objective - Vital Signs Vital signs: Vital Signs Temp 98.1 F 09/24/23 11:01 Pulse 62 09/24/23 11:01 Resp 16 09/24/23 11:01 BP 110/72 09/24/23 11:01 Pulse Ox 95 09/24/23 11:01 FiO2 Intake & Output 09/23/23 09/24/23 09/24/23 18:59 06:59 18:59 Intake Total 1228.046 0 Balance 1228.046 0 Intake: Intake, IV Titration 148.046 Amount Heparin Sod,Pork in 0.45% 148.046 NaCl 25,000 unit In 0.45 % NaCl 1 250ml.bag @ 12 UNITS/KG/HR 5.987 mls/hr IV .Q24H [facility] Rx#: [id number] Oral 1080 0 Other: Voiding Method Toilet Toilet Toilet # Voids 3 1 - Labs CBC & Chem 7: 09/23/23 09:38 09/23/23 09:38
[2023-09-24] MEDS: IV FLUID CONTINUATION 1,000 ML IV ONE (14:05)
[2023-09-24] MEDS ORDERED: diphenhydrAMINE 50 MG/ML 1 ML VIAL ONE (14:15)
[2023-09-24] MEDS ORDERED: fentaNYL (PF) 50 MCG/ML 2 ML AMP ONE (14:15)
[2023-09-24] MEDS ORDERED: methylPREDNISolone SOD SUCCI 125 MG/2 ML VIAL ONE (14:15)
[2023-09-24] MEDS: methylPREDNISolone SOD SUCCI 125 MG/2 ML VIAL IVP ONE (14:20)
[2023-09-24] MEDS: diphenhydrAMINE 50 MG/ML 1 ML VIAL IVP ONE (14:20)
[2023-09-24] MEDS ORDERED: HEPARIN SODIUM 1,000 UN/ML (10ML VL) ONE (14:22)
[2023-09-24] MEDS ORDERED: LIDOCAINE 1% INJ 10MG/ML (20 ML MDV) ONE (14:22)
[2023-09-24] MEDS ORDERED: VERAPAMIL 2.5 MG/ML 2 ML AMP ONE (14:22)
[2023-09-24] MEDS: MIDAZOLAM 2 MG/2 ML VIAL IVP ONE (14:25)
[2023-09-24] MEDS: LIDOCAINE 1% INJ 10MG/ML (20 ML MDV) SQ ONE (14:25)
[2023-09-24] MEDS: fentaNYL (PF) 50 MCG/ML 2 ML AMP IVP ONE (14:26)
[2023-09-24] MEDS: VERAPAMIL SYRINGE (5 MG/10 ML) INTRAARTER ONE (14:30)
[2023-09-24] MEDS: HEPARIN SODIUM 1,000 UN/ML (10ML VL) IVP ONE (14:41)
[2023-09-24] MEDS: IOPAMIDOL-370 100ML BTL INJ ONE (14:49)
[2023-09-24 14:52] LABS: O2 Sat Blood Gas 72.6 %
[2023-09-24 14:54] LABS: O2 Sat Blood Gas 95.9 %
[2023-09-24 14:56] LABS: O2 Sat Blood Gas 71.8 %
--- NOTE | 2023-09-24 15:05 | P.CARDCATH ---
Description of Procedure: PROCEDURES PERFORMED: Left and right heart catheterization, bilateral coronary angiography, ultrasound guided arterial access INDICATION: chest pain concerning for unstable angina, mildly abnormal troponins, history of CAD CONSENT:I have discussed the risks, benefits and alternative therapies for the above-mentioned procedure and for both sedation/analgesia as well as necessary blood product administration, if indicated, as they pertain to this patient. The patient has indicated understanding and acceptance of the risks and pr ocedures discussed. PROCEDURE: After the risks, benefits and alternatives of the above mentioned procedure explained in detail with the patient, informed consent was obtained. Patient was taken to the catheterization lab and prepped and draped in usual fashion. Ultrasound guidance was used to assess for arterial access. 1% lidocaine was used to anesthetize the right radial artery. A 6-Welsh sheath was placed in the right radial artery and a second sheath in the right brachial vein using modified Seldinger technique and ultrasound guidance. Left coronary angiography was performed with a 5-Welsh JL 3.5 catheter and right coronary angiography was performed with a 5-Welsh FR5 catheter in various views. A 5- Welsh FR5 catheter was inserted into the left ventricle and pressure measureme nts were obtained. The right radial sheath was removed and a TR band was placed with hemostasis achieved. The patient tolerated the procedure well. Patient was transported back to the post catheterization holding area in stable condition. Conscious Sedation: Patient was monitored under the direct supervision of myself for conscious sedation using Versed and fentanyl for a total duration of 30 m inutes HEMODYNAMICS: PCWP: 7 PA: 26/8 RV: 23/1 RA: 2 AO: 129/71 LV: 162/1, LVEDP 14, mean gradient 23mmHg across the aortic valve Oxygen saturation right atrium: 73% Oxygen saturation pulmonary artery: 72% Oxygen saturation right radial artery: 96% CO by CHARITY 5.2 L/m CI by CHARITY 3.5 L/m/m CO by thermodilution: 4.4 L/min CI by thermodilution: 2.95 L/min/m2 SELECTIVE CORONARY ARTERIOGRAPHY: LEFT MAIN: The left main is a large caliber vessel which bifurcates into the LAD and circumflex. There is no significant stenosis. LEFT ANTERIOR DESCENDING CORONARY ARTERY: LAD is a large caliber vessel which wraps around to the apex. There is a patent proximal LAD stents with mild 10- 20% stenosis. The remainder of LAD has mild luminal irregularities. LEFT CIRCUMFLEX CORONARY ARTERY: Left circumflex is a moderate caliber vessel with proximal circumflex 20% stenosis and otherwise mild luminal irregularities. RIGHT CORONARY ARTERY: The right coronary artery is a large caliber vessel which gives off a PDA and PLV branch and is the dominant vessel. There is a proximal RCA 30% stenosis FINAL IMPRESSION: 1. Mild CAD as described above including 30% RCA, 20% LAD stenosis with patent LAD stent. 2. Normal left and right sided filling pressures 3. Mild aortic stenosis with mean gradient 23mmHg PLAN: 1. Aggressive risk factor modification per most recent ACC/AHA guidelines. 2. Follow-up in the office in 1-2 weeks.
[2023-09-25 02:01] VITALS: RESP 18
[2023-09-25 07:59] VITALS: TEMP 97.8
--- NOTE | 2023-09-25 08:57 | PN ---
PROGRESS NOTE DATE OF SERVICE: 09/24/2023 CHIEF COMPLAINT: Coronary artery disease. 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 PHYSICAL EXAM: VITAL SIGNS: Normal. CHEST: Clear. CARDIAC: Normal. IMPRESSION: 1. NSTEMI. 2. Unstable angina. 3. Recent myocardial infarction. 4. COPD. PLAN: Cardiac cath today. MMODL / IJN: [id number] /
[2023-09-25] MEDS: ASPIRIN 81 MG PO SCH (09:33)
[2023-09-25 11:44] VITALS: BP 128/90; PULSE 73
--- NOTE | 2023-09-25 13:10 | P.PN ---
Subjective HISTORY OF PRESENT ILLNESS: The patient is a 73-year-old male who presented to the emergency room with chest discomfort, headache, and vomiting. The patient was recently admitted for chest discomfort and recently had a follow-up in office with Dr. Jolly. According to the patient he will undergo stress testing for evaluation of coronary artery disease. DIAGNOSTICS: EKG shows sinus bradycardia with diffuse T wave inversions Chest x-ray shows bilateral lower lobe atelectasis CT scan of the brain shows no acute intracranial hemorrhage, midline shift, or mass effect Lab data: WBC 8.6, hemoglobin 12.3, hematocrit 38.1, platelet 304, sodium 139, potassium 4.5, BUN is 17, 0.62, magnesium 1.8, AST 30, ALT 20, troponin 0.05, 0.02, 0.06 Echocardiogram on 328 at 24 shows preserved LV function with moderate mitral regurgitation and thickening of valve leaflets. Moderate pulmonary hypertension with RVSP of 46 mmHg 09/22 Patient is seen today on the cardiac stepdown unit. Patient is maintained on heparin drip with plan for cardiac catheterization with Dr. Jolly. Blood pressure 150/93, heart rate 56, pulse ox 94% on room air. Patient denies having any chest pain, shortness of breath. Uncontrolled hypertension 09/24/2023 Patient examined this morning. Patient denies chest pain or pressure. Denies shortness of breath. Vital signs are stable. 09/25/2023 Patient is s/p cardiac cath with Dr. Jolly revealing 30% RCA, 20% LAD stenosis with patent LAD stent. Medical management was recommended. Patient examined at the bedside. Patient denies chest pain or pressure. Denies shortness of breath. Vital signs are stable. PHYSICAL EXAM: VITAL SIGNS: Reviewed. GENERAL: Well-developed in no acute distress. NECK: Supple. No JVD or thyromegaly LUNGS: Respirations even and unlabored. Lungs essentially clear to auscultation bilaterally. HEART: Regular rate and rhythm. S1 and S2 heard. EXTREMITIES: Normal range of motion. No clubbing or cyanosis. Peripheral pulses intact. No lower extremity edema ASSESSMENT: Chest discomfort, recurrent History of intermediate coronary artery disease History of mitral regurgitation History of smoking Dyslipidemia PLAN: Continue current cardiac medications Patient is stable for discharge home today from a cardiac standpoint Patient to follow up post discharge with Dr. Berger Nurse practitioner note has been reviewed by physician. Signing provider agrees with the documented findings, assessment, and plan of care documented by STAFF ANTISUBMARINE OFFICER as a scribe. Objective - Vital Signs Vital signs: Vital Signs Temp 97.8 F 09/25/23 07:16 Pulse 73 09/25/23 11:29 Resp 18 09/25/23 11:29 BP 128/90 09/25/23 11:29 Pulse Ox 100 09/25/23 11:29 FiO2 Intake & Output 09/24/23 09/25/23 09/25/23 18:59 06:59 18:59 Intake Total 860 240 110 Balance 860 240 110 Intake: IV 500 Oral 360 240 110 Other: Voiding Method Toilet Toilet Toilet # Voids 1 1 - Labs CBC & Chem 7: 09/23/23 09:38 09/23/23 09:38
--- NOTE | 2023-09-26 13:30 | DS ---
DISCHARGE SUMMARY CHIEF COMPLAINT: Chest pain. HISTORY OF PRESENT ILLNESS AND PHYSICAL EXAMINATION: Details of this man's history and physical can be found in the initial workup. LABORATORY STUDIES: While he was in the hospital, he had laboratory studies, details of which can be found in the laboratory section of his chart. COURSE IN THE HOSPITAL: After admission, he was placed on bedrest, started on intravenous fluids and seen by Cardiology. He was eventually taken for a cardiac cath and was found to have some coronary artery narrowing, but nothing requiring stenting. It was felt that he could be discharged on intensive medical program and he will go home on the and be seen in the office in several days. FINAL DIAGNOSES: 1. Acute coronary syndrome. 2. Coronary artery disease. 3. Previous myocardial infarction. 4. Chronic obstructive pulmonary disease. OPERATIONS: None. CONSULTATIONS: Cardiology, he is improved. MAXIMO / QUIQUE: [id number] /
== END 2023-09-25 14:07 | disposition home or self-care (01) | DRG 287 ==
LOC: EC 10:56 → 3SCARD 13:22 → OBSVTOIN 13:23 → 3SCARD 14:01
PROVIDERS: ADMIT Family Medicine; ATTEND Family Medicine
PROC: 4A023N8 Measurement of Cardiac Sampling and Pressure, Bilateral, Percutaneous Approach (ICD-10-PCS; principal; 2023-09-24 11:30)
PROC: B2111ZZ Fluoroscopy of Multiple Coronary Arteries using Low Osmolar Contrast (ICD-10-PCS; 2023-09-24 11:30)
DX: I25.110 Atherosclerotic heart disease of native coronary artery with unstable angina pectoris (principal); I27.20 Pulmonary hypertension, unspecified; F17.200 Nicotine dependence, unspecified, uncomplicated; I10 Essential (primary) hypertension; F15.11 Other stimulant abuse, in remission; E78.5 Hyperlipidemia, unspecified; F31.9 Bipolar disorder, unspecified; I34.0 Nonrheumatic mitral (valve) insufficiency; J44.9 Chronic obstructive pulmonary disease, unspecified; I35.0 Nonrheumatic aortic (valve) stenosis; K21.9 Gastro-esophageal reflux disease without esophagitis; N40.0 Benign prostatic hyperplasia without lower urinary tract symptoms; Z95.5 Presence of coronary angioplasty implant and graft; I25.2 Old myocardial infarction; Z91.041 Radiographic dye allergy status; Z79.51 Long term (current) use of inhaled steroids; Z79.899 Other long term (current) drug therapy
CPT/HCPCS: 36415; 70450; 71046; 76937; 80048; 80053; 80061; 82810; 83735; 84484; 85018; 85025; 85027; 85610; 85730; 93005; 93460; 94640; 94760; 96365; 96366; 96375; 96376; 99291

== ENCOUNTER → 2023-10-17 | Outpatient (CLI) | payer MEDICARE ==
--- NOTE | 2023-10-22 21:23 | CT ---
EXAMINATION TYPE: CT chest wo con CT DLP: 257 mGycm, Automated exposure control for dose reduction was used. DATE OF EXAM: 10/17/2023 1:32 PM COMPARISON: Chest radiograph 09/21/[address] 12/20/2017. CLINICAL INDICATION:Male, 73 years old with history of R91.1 SOLITARY PULMONARY NODULE; PHH, Solitary pulmonary nodule TECHNIQUE: Multiple axial images were obtained through the chest. Sagittal and coronal reformats were created for review. Contrast used: mL of (None if empty) Oral contrast used: (None if empty) FINDINGS: LUNGS/ PLEURA: Moderate upper lobe predominant centrilobular emphysema The lung parenchyma appears un remarkable. No sizable pulmonary nodules. No pulmonary masses. AIRWAY: Patent and unremarkable. HEART: Size within normal limits. Moderate coronary artery disease. MEDIASTINUM: No gross evidence of adenopathy. VASCULATURE: No aortic aneurysm. MUSCULOSKELETAL: No acute osseous abnormalities SOFT TISSUES/LYMPH NODES: Unremarkable. LOWER NECK: No significant findings. UPPER ABDOMEN: No significant findings. Calcified granuloma and liver signifying healed granulomato us disease. IMPRESSION: Moderate coronary artery disease. No sizable pulmonary nodules. No pulmonary masses. Follow up recommendations for incidental pulmonary nodules, if there are any, are per [employer] or [employer]. https://radiopaedia.org/articles/cflgdpofbr-[email or web address]?lang=us
== END | disposition home or self-care (01) ==
LOC: RADCTMAIN 12:46
PROVIDERS: ATTEND Internal Medicine
DX: I25.10 Atherosclerotic heart disease of native coronary artery without angina pectoris (principal); R91.1 Solitary pulmonary nodule
CPT/HCPCS: 71250

== ENCOUNTER 2023-10-27 15:50 | Observation (INO) | payer MEDICARE ==
[2023-10-27 16:32] LABS: Basophils % (A) 1 %; Eosinophils # (A) 0.3 k/uL (0-0.7); Eosinophils % (A) 4 %; HCT 35.9 % (39.0-53.0); Lymphocytes # (A) 1.2 k/uL (1.0-4.8); Lymphocytes % (A) 18 %; MCH 31.7 pg (25.0-35.0); MCHC 32.6 g/dL (31.0-37.0); MCV 97.2 fL (80.0-100.0); Mean Platelet Volume 8.7; Monocytes # (A) 0.5 k/uL (0-1.0); Monocytes % (A) 7 %; Neutrophils # (A) 4.6 k/uL (1.3-7.7); Neutrophils % (A) 68 %; Platelet Count 209 k/uL (150-450); RBC 3.69 m/uL (4.30-5.90); RDW 13.7 % (11.5-15.5); WBC 6.8 k/uL (3.8-10.6)
[2023-10-27 16:36] LABS: HGB 11.7 gm/dL (13.0-17.5)
[2023-10-27 16:39] LABS: ALT 22 U/L (4-49); AST 36 U/L (17-59); African American GFR (CKD) >90 (>60 ml/min/1.73 sqM); Albumin 4.2 g/dL (3.5-5.0); Alkaline Phosphatase 73 U/L (38-126); Anion Gap 6 mmol/L; Blood Urea Nitrogen 21 mg/dL (9-20); Calcium 9.1 mg/dL (8.4-10.2); Carbon Dioxide 25 mmol/L (22-30); Chloride 108 mmol/L (98-107); Glucose 126 mg/dL (74-99); Magnesium 1.9 mg/dL (1.6-2.3); Non-African American GFR(CKD) >90 (>60 ml/min/1.73 sqM); Potassium 4.4 mmol/L (3.5-5.1); Sodium 139 mmol/L (137-145); Total Bilirubin 0.6 mg/dL (0.2-1.3); Total Protein 7.2 g/dL (6.3-8.2)
[2023-10-27 16:40] LABS: Partial Thromboplastin Time 23.9 sec (22.0-30.0); Prothrombin Time 10.6 sec (10.0-12.5)
[2023-10-27 16:45] LABS: NT-Pro-B-Type Natriuretic Pept 2760 pg/mL
[2023-10-27] MEDS: ASPIRIN 81 MG PO STA (16:46)
[2023-10-27] MEDS ORDERED: HEPARIN SODIUM 1,000 UN/ML (10ML VL) IV PRN (17:09)
--- NOTE | 2023-10-27 17:19 | XR ---
EXAMINATION TYPE: XR chest 2V DATE OF EXAM: 10/27/2023 4:42 PM CLINICAL INDICATION:Male, 73 years old with history of Chest Pain; [facility] COMPARISON: Chest radiographs from 09/21/2023 TECHNIQUE: XR chest 2V Frontal and lateral views of the chest. FINDINGS: Lungs/Pleura: There is flattening of the diaphragm with increased lucency of the lungs. No evidence o f pneumothorax, pleural effusion or focal consolidation. Pulmonary vascularity: Unremarkable. Heart/mediastinum: Cardiomediastinal silhouette is unremarkable. Musculoskeletal: No acute osseous pathology. IMPRESSION: 1. No acute cardiopulmonary disease process. 2. COPD changes.
--- NOTE | 2023-10-27 17:43 | ED ---
Chest Pain HPI - General Chief Complaint: Chest Pain Stated Complaint: chest pain Time Seen by Provider: 10/27/23 16:05 Source: patient Mode of arrival: ambulatory Limitations: no limitations - History of Present Illness Initial Comments: Fanny is a pleasant 73-year-old male with known coronary artery disease status post stenting in cardiac cath last month that showed no indication for repeat stenting. Patient states that over the past 2 days he has probably overexerted himself doing yard work he states he did have some chest pain while doing yard work but then today he was at home when he started having severe chest pain it persisted he was concerned he was having a heart attack so he got his friend to bring him to hospital for evaluation. Patient states he had severe stabbing pain in his left chest with shortness of breath and lightheadedness. Patient reports feeling much better now that he is resting comfortably in the ER cot. - Related Data Home Medications Medication Instructions Recorded Confirmed Tamsulosin HCl [Flomax] 0.4 mg PO HS 07/18/17 09/21/23 Buprenorphine HCl/Naloxone HCl 0.5 film SL BID 01/18/22 09/21/23 [Suboxone 8 mg-2 mg Sl Film] Multivitamins, Thera [Multivitamin 1 tab PO DAILY 01/18/22 09/21/23 (formulary)] Albuterol Inhaler [Ventolin Hfa 2 puff INHALATION RT-QID PRN 09/06/23 09/21/23 Inhaler] Dicyclomine [Bentyl] 10 mg PO TID PRN 09/06/23 09/21/23 busPIRone HCl [Buspar] 10 mg PO TID PRN 09/06/23 09/21/23 Aspirin EC [Ecotrin Low Dose] 81 mg PO DAILY 09/21/23 09/21/23 Nitroglycerin Sl Tabs [Nitrostat] 0.4 mg SL Q5M PRN 09/21/23 09/21/23 [place] Xl Joint & Muscle Support 1 cap PO DAILY 09/21/23 09/21/23 Pantoprazole [Protonix] 40 mg PO DAILY 09/21/23 09/21/23 buPROPion [Wellbutrin] 100 mg PO BID 09/21/23 09/21/23 Previous Rx's Medication Instructions Recorded Budesonide-Formot 160-4.5 Mcg 2 puff INHALATION RT-BID #1 each 09/08/23 [Symbicort 160-4.5 Mcg Inhaler] Dapagliflozin Propanediol [Farxiga] 10 mg PO DAILY #30 tab 09/08/23 carvediloL [Coreg] 6.25 mg PO BID-W/MEALS #60 tab 09/08/23 Atorvastatin [Lipitor] 80 mg PO HS #30 tab 09/25/23 amLODIPine [Norvasc] 2.5 mg PO DAILY #30 tab 09/25/23 hydrALAZINE HCL [Apresoline] 25 mg PO TID #90 tab 09/25/23 Allergies Allergy/AdvReac Type Severity Reaction Status Date / Time IV DYE Allergy Rash/Hives Uncoded 10/27/23 15:54 Review of Systems ROS Statement: Those systems with pertinent positive or pertinent negative responses have been documented in the HPI. ROS Other: All systems not noted in ROS Statement are negative. EKG Findings - EKG Comments: EKG Findings:: EKG was obtained due to complaint of chest pain EKG was obtained at 1603 rate is 62 rhythm is sinus with changes consistent with left ventricular hypertrophy, there is deep T wave inversions in V3 through V6. When these were compared to EKG from last month the T wave inversions are less prominent. These changes concerning for ischemia without acute infarction. Past Medical History Past Medical History: Chest Pain / Angina, GERD/Reflux, Hyperlipidemia, Hypertension, Myocardial Infarction ([place]), Prostate Disorder Additional Past Medical History / Comment(s): "Blurry vision, need glasses." Varicose veins. Last Myocardial Infarction Date:: 2017 History of Any Multi-Drug Resistant Organisms: None Reported Past Surgical History: Heart Catheterization With Stent Additional Past Surgical History / Comment(s): stent X2. HEMORROIDECTOMY. PROSTATE SURGERY, BPH. COLONOSCOPY Past Anesthesia/Blood Transfusion Reactions: No Reported Reaction Date of Last Stent Placement:: ? -approx 15 yrs Past Psychological History: ADD/ADHD, Anxiety, Bipolar, Depression Smoking Status: Current every day smoker Past Alcohol Use History: Occasional Past Drug Use History: Cocaine, Marijuana, Methamphetamine - Past Family History Father History Unknown: Yes Family Medical History: Cancer, CVA/TIA Additional Family Medical History / Comment(s): . Mother History Unknown: Yes Family Medical History: Cancer Additional Family Medical History / Comment(s): Lung cancer. Brother(s) History Unknown: Yes Family Medical History: Cancer Additional Family Medical History / Comment(s): Lung Cancer. General Exam Limitations: no limitations Course Vital Signs 10/27/23 10/27/23 10/27/23 15:51 16:12 18:40 Temperature 98.2 F Pulse Rate 69 65 Respiratory 18 18 16 Rate Blood Pressure 93/49 93/50 O2 Sat by Pulse 100 97 Oximetry 10/27/23 10/27/23 19:52 21:42 Temperature Pulse Rate 65 57 L Respiratory 16 16 Rate Blood Pressure 92/56 110/67 O2 Sat by Pulse 95 97 Oximetry Chest Pain MDM - MDM Was pt. sent in by a medical professional or institution (, PA, TRAFFIC RATE COMPUTER, urgent care, hospital, or [facility]...) When possible be specific @ -No Did you speak to anyone other than the patient for history (EMS, parent, family, police, friend...)? What history was obtained from this source @ -No Did you review nursing and triage notes (agree or disagree)? Why? @ -I reviewed and agree with nursing and triage notes Were old charts reviewed (outside hosp., previous admission, EMS record, old EKG, old radiological studies, urgent care reports/EKG's, [facility] records)? Report findings @ -Previous admission, cath report and EKGs were reviewed Differential Diagnosis (chest pain, altered mental status, abdominal pain women, abdominal pain men, vaginal bleeding, weakness, fever, dyspnea, syncope, headache, dizziness, GI bleed, back pain, seizure, CVA, palpatations, mental health)? @ -DM differential chest pain EKG interpreted by me (3pts min.). @ -As above X-rays interpreted by me (1pt min.). @ -No pneumonia no pneumothorax CT interpreted by me (1pt min.). @ -None done U/S interpreted by me (1pt. min.). @ -None done What testing was considered but not performed or refused? (CT, X-rays, U/S, labs)? Why? @ -None What meds were considered but not given or refused? Why? @ -Patient was considered but held as the patient was not having active chest pain Did you discuss the management of the patient with other professionals (professionals i.e. , PA, TRAFFIC RATE COMPUTER, lab, RT, psych nurse, social security specialist, rice milling supervisor, teacher, marketing and communications officer, case filler)? Give summary @ -No Was smoking cessation discussed for >3mins.? @ -Yes Was critical care preformed (if so, how long)? @ -No Were there social determinants of health that impacted care today? How? (Homelessness, low income, unemployed, alcoholism, drug addiction, transportation, low edu. Level, literacy, decrease access to med. care, care home, rehab)? @ -No Was there de-escalation of care discussed even if they declined (Discuss DNR or withdrawal of care, Hospice)? DNR status @ -No What co-morbidities impacted this encounter? (DM, HTN, Smoking, COPD, CAD, Cancer, CVA, ARF, Chemo, Hep., AIDS, mental health diagnosis, sleep apnea, morbid obesity)? @ -CAD, hypertension Was patient admitted / discharged? Hospital course, mention meds given and route, prescriptions, significant lab abnormalities, going to OR and other pertinent info. @ -Admit Patient was seen and evaluated, history was obtained from the patient and review of medical record. Patient with known CAD recent hospitalization and cath with no acute findings presents with exertional chest pain for the past 2 days while doing gardening and episode of chest pain prior to arrival. No active chest p ain on arrival. No ischemic changes on EKG, EKG today appears better than last month. Patient will be admitted with cardiology on consult. Troponin is elevated patient does report he continues smoke cigarettes and is not compliant with his home medications, heparin will be initiated for NSTEMI. Undiagnosed new problem with uncertain prognosis? @ -No Drug Therapy requiring intensive monitoring for toxicity (Heparin, Nitro, Insulin, Cardizem)? @ -Heparin Were any procedures done? @ -No Diagnosis/symptom? @ -Unstable angina Acute, or Chronic, or Acute on Chronic? @ -Acute Uncomplicated (without systemic symptoms) or Complicated (systemic symptoms)? @ -Default Side effects of treatment? @ -No Exacerbation, Progression, or Severe Exacerbation? @ -No Poses a threat to life or bodily function? How? (Chest pain, [place], [place], pneumonia, PE, COPD, DKA, ARF, appy, cholecystitis, CVA, Diverticulitis, Homicidal, Suicidal, threat to staff... and all critical care pts) @ -Yes can result in cardiac ischemia, arrhythmia heart failure or Disposition Clinical Impression: Acute non-ST elevation myocardial infarction (NSTEMI) Disposition: ADMITTED IP TO THIS HOSP Condition: Serious Is patient prescribed a controlled substance at d/c from ED?: No
[2023-10-27] MEDS ORDERED: NITROGLYCERIN SL TABS 0.4 MG TAB SUBLINGUAL PRN (17:47)
[2023-10-27] MEDS ORDERED: ALBUTEROL NEBULIZED 2.5 MG/3 ML INHALATION PRN (17:48)
[2023-10-27] MEDS: HEPARIN SOD,PORK IN 0.45% NACL 25,000 UNIT in 0.45% NACL 1 250ML.BAG IV SCH (19:27)
[2023-10-27] MEDS: SYMBICORT 160-4.5 MCG INHALER INHALATION SCH (22:30)
[2023-10-27] MEDS: ATORVASTATIN 80 MG TAB PO SCH (22:42)
[2023-10-27] MEDS: buPROPion 100 MG TAB PO SCH (22:43)
[2023-10-27] MEDS: hydrALAZINE HCL 25 MG TAB PO SCH (22:45)
[2023-10-28 03:35] LABS: Basophils % (A) 1 %; Eosinophils # (A) 0.3 k/uL (0-0.7); Eosinophils % (A) 5 %; HCT 34.2 % (39.0-53.0); HGB 10.8 gm/dL (13.0-17.5); Lymphocytes # (A) 1.3 k/uL (1.0-4.8); Lymphocytes % (A) 20 %; MCHC 31.7 g/dL (31.0-37.0); MCV 97.8 fL (80.0-100.0); Mean Platelet Volume 9.2; Monocytes # (A) 0.4 k/uL (0-1.0); Monocytes % (A) 6 %; Neutrophils # (A) 4.1 k/uL (1.3-7.7); Neutrophils % (A) 66 %; Platelet Count 180 k/uL (150-450); RBC 3.49 m/uL (4.30-5.90); RDW 13.6 % (11.5-15.5); WBC 6.2 k/uL (3.8-10.6)
[2023-10-28 03:47] LABS: Prothrombin Time 11.4 sec (10.0-12.5)
--- NOTE | 2023-10-28 08:38 | P.CRDCN ---
History of Present Illness Consult date: 10/28/23 History of present illness: HISTORY OF PRESENTING ILLNESS [73-year-old with past medical history of recurrent chronic chest pain, severe concentric LVH, chronic ECG changes with deep T wave inversions, underwent recent heart cath 1 month ago which did not show any obstructive coronary artery disease. He presented to the hospital because of worsening substernal chest pain and symptoms of lightheadedness when he was working in his yard. Patient reported that he overexerted himself. This morning his symptoms are better. ECG shows sinus bradycardia with diffuse T wave inversions, this is not changed from prior ECG troponin of 0.05, 0.03, BUN 21, creatinine 0.6, hemoglobin 10.8 REVIEW OF SYSTEMS 14 point review of system is negative except what is mentioned above in HPI. PHYSICAL EXAMINATION Vital signs reviewed. Head: Normocephalic. Eyes: Sclerae nonicteric. Neck: Brisk carotid upstroke, no jugular venous distention. Lungs: Clear to auscultation. Heart: Regular rate and rhythm, S1-S2, no S3, systolic murmur that got accentuated with Valsalva Abdomen: Soft nontender, positive bowel sounds. Extremities: No edema, intact distal pulses. Neuro: Alert, oritented, no focal deficits. Detailed neuro exam was not performed. ASSESSMENT Chronic chest pain, likely due to severe LVH Chronic T wave inversions diffusely, likely due to severe LVH Nonobstructive CAD Smoking History of dyslipidemia PLAN Will start Coreg 3.125 mg twice daily because of severe LVH. He does have low resting heart rate. Will try low-dose of Coreg to see if he is able to tolerate or not. Discontinue hydralazine to prevent reflex tachycardia Start Imdur 15 mg daily Amlodipine 2.5 mg daily Aspirin 81, atorvastatin 80 Recommend outpatient follow-up with primary psychiatric tech Please provide a list of patient's medication to him on discharge so that he knows what to take Rule out of acute coronary syndrome. Patient is cleared to be discharged from cardiovascular standpoint Dayne Quezada MD, FACC, RPVI Thank you for allowing [facility] to participate in this patient's care. Feel free to reach out in case of any followup questions. Past Medical History Past Medical History: Chest Pain / Angina, GERD/Reflux, Hyperlipidemia, Hypertension, Myocardial Infarction (PR), Prostate Disorder Additional Past Medical History / Comment(s): "Blurry vision, need glasses." Varicose veins. Last Myocardial Infarction Date:: 2017 History of Any Multi-Drug Resistant Organisms: None Reported Past Surgical History: Heart Catheterization With Stent Additional Past Surgical History / Comment(s): stent X2. HEMORROIDECTOMY. PROSTATE SURGERY, BPH. COLONOSCOPY Past Anesthesia/Blood Transfusion Reactions: No Reported Reaction Date of Last Stent Placement:: ? -approx 15 yrs Past Psychological History: ADD/ADHD, Anxiety, Bipolar, Depression Smoking Status: Current every day smoker Past Alcohol Use History: Occasional Past Drug Use History: Cocaine, Marijuana, Methamphetamine - Past Family History Father History Unknown: Yes Family Medical History: Cancer, CVA/TIA Additional Family Medical History / Comment(s): . Mother History Unknown: Yes Family Medical History: Cancer Additional Family Medical History / Comment(s): Lung cancer. Brother(s) History Unknown: Yes Family Medical History: Cancer Additional Family Medical History / Comment(s): Lung Cancer. Medications and Allergies Home Medications Medication Instructions Recorded Confirmed Type Tamsulosin HCl [Flomax] 0.4 mg PO HS 07/18/17 09/21/23 History Buprenorphine HCl/Naloxone HCl 0.5 film SL BID 01/18/22 09/21/23 History [Suboxone 8 mg-2 mg Sl Film] Multivitamins, Thera [Multivitamin 1 tab PO DAILY 01/18/22 09/21/23 History (formulary)] Albuterol Inhaler [Ventolin Hfa 2 puff INHALATION RT-QID PRN 09/06/23 09/21/23 History Inhaler] Dicyclomine [Bentyl] 10 mg PO TID PRN 09/06/23 09/21/23 History busPIRone HCl [Buspar] 10 mg PO TID PRN 09/06/23 09/21/23 History Budesonide-Formot 160-4.5 Mcg 2 puff INHALATION RT-BID #1 each 09/08/23 09/21/23 Rx [Symbicort 160-4.5 Mcg Inhaler] Dapagliflozin Propanediol [Farxiga] 10 mg PO DAILY #30 tab 09/08/23 09/21/23 Rx carvediloL [Coreg] 6.25 mg PO BID-W/MEALS #60 tab 09/08/23 09/21/23 Rx Aspirin EC [Ecotrin Low Dose] 81 mg PO DAILY 09/21/23 09/21/23 History Nitroglycerin Sl Tabs [Nitrostat] 0.4 mg SL Q5M PRN 09/21/23 09/21/23 History [place] Xl Joint & Muscle Support 1 cap PO DAILY 09/21/23 09/21/23 History Pantoprazole [Protonix] 40 mg PO DAILY 09/21/23 09/21/23 History buPROPion [Wellbutrin] 100 mg PO BID 09/21/23 09/21/23 History Atorvastatin [Lipitor] 80 mg PO HS #30 tab 09/25/23 Rx amLODIPine [Norvasc] 2.5 mg PO DAILY #30 tab 09/25/23 Rx hydrALAZINE HCL [Apresoline] 25 mg PO TID #90 tab 09/25/23 Rx Allergies Allergy/AdvReac Type Severity Reaction Status Date / Time IV DYE Allergy Rash/Hives Uncoded 10/27/23 15:54 Physical Exam Vitals: Vital Signs Temp Pulse Resp BP Pulse Ox 10/28/23 03:28 97.8 F 55 L 16 101/62 95 10/27/23 23:56 48 L 16 96/60 97 10/27/23 22:45 52 L 16 99/50 97 10/27/23 21:42 57 L 16 110/67 97 10/27/23 19:52 65 16 92/56 95 10/27/23 18:40 65 16 93/50 97 10/27/23 16:12 18 10/27/23 15:51 98.2 F 69 18 93/49 100 Intake and Output 10/27/23 10/28/23 10/28/23 22:59 06:59 14:59 Other: Weight 49.895 kg Results 10/28/23 03:21 10/27/23 16:12 Cardiac Enzymes 10/27/23 10/27/23 10/27/23 Range/Units 16:12 16:12 19:28 AST 36 (17-59) U/L Troponin I 0.053 H* 0.035 H* (0.000-0.034) ng/mL 10/27/23 Range/Units 23:09 AST (17-59) U/L Troponin I 0.033 (0.000-0.034) ng/mL Coagulation 10/27/23 10/27/23 10/28/23 Range/Units 16:12 23:09 03:21 PT 10.6 11.4 (10.0-12.5) sec APTT 23.9 34.4 H (22.0-30.0) sec CBC 10/27/23 10/28/23 Range/Units 16:12 03:21 WBC 6.8 6.2 (3.8-10.6) k/uL RBC 3.69 L 3.49 L (4.30-5.90) m/uL Hgb 11.7 L D 10.8 L (13.0-17.5) gm/dL Hct 35.9 L 34.2 L (39.0-53.0) % Plt Count 209 180 (150-450) k/uL Comprehensive Metabolic Panel 10/27/23 Range/Units 16:12 Sodium 139 (137-145) mmol/L Potassium 4.4 (3.5-5.1) mmol/L Chloride 108 H (98-107) mmol/L Carbon Dioxide 25 (22-30) mmol/L BUN 21 H (9-20) mg/dL Creatinine 0.68 (0.66-1.25) mg/dL Glucose 126 H (74-99) mg/dL Calcium 9.1 (8.4-10.2) mg/dL AST 36 (17-59) U/L ALT 22 (4-49) U/L Alkaline Phosphatase 73 (38-126) U/L Total Protein 7.2 (6.3-8.2) g/dL Albumin 4.2 (3.5-5.0) g/dL Current Medications Generic Name Dose Route Start Last Admin Trade Name Freq PRN Reason Stop Dose Admin Albuterol Sulfate 2.5 mg 10/27/23 17:48 Albuterol Nebulized 2.5 Mg/3 Ml INHALATION RT-QID PRN Shortness Of Breath Amlodipine Besylate 2.5 mg 10/28/23 09:00 Amlodipine 2.5 Mg Tab PO DAILY [facility] Aspirin 81 mg 10/28/23 09:00 Aspirin 81 Mg PO DAILY [facility] Atorvastatin Calcium 80 mg 10/27/23 21:00 10/27/23 22:42 Atorvastatin 80 Mg Tab PO 80 mg HS ROSA Administration Budesonide/Formoterol Fumarate 2 puff 10/27/23 20:00 10/27/23 22:30 Symbicort 160-4.5 Mcg Inhaler INHALATION 2 puff RT-BID ROSA Administration Bupropion HCl 100 mg 10/27/23 21:00 10/27/23 22:43 Bupropion 100 Mg Tab PO 100 mg BID ROSA Administration Buspirone HCl 10 mg 10/27/23 17:48 Buspirone Hcl 10 Mg Tab PO TID PRN Anxiety Carvedilol 3.125 mg 10/28/23 08:00 Carvedilol 3.125 Mg Tab PO BID-W/MEALS ROSA Dapagliflozin 10 mg 10/28/23 09:00 Dapagliflozin Propanediol 10 Mg Tablet PO DAILY [facility] Isosorbide Mononitrate 15 mg 10/28/23 09:00 Isosorbide Mononitrate Er 15 Mg Tab PO DAILY [facility] Nitroglycerin 0.4 mg 10/27/23 17:47 Nitroglycerin Sl Tabs 0.4 Mg Tab SUBLINGUAL Q5M PRN Chest Pain Pantoprazole Sodium 40 mg 10/28/23 09:00 Pantoprazole 40 Mg Tablet PO DAILY [facility] Intake and Output 10/27/23 10/28/23 10/28/23 22:59 06:59 14:59 Other: Weight 49.895 kg 10/28/23 03:21 10/27/23 16:12
[2023-10-28] MEDS: PANTOPRAZOLE 40 MG TABLET PO SCH (08:52)
[2023-10-28] MEDS: DAPAGLIFLOZIN PROPANEDIOL 10 MG TABLET PO SCH (08:53)
[2023-10-28] MEDS: amLODIPine 2.5 MG TAB PO SCH (08:53)
[2023-10-28] MEDS: ASPIRIN 81 MG PO SCH (08:54)
[2023-10-28] MEDS: carvediloL 3.125 MG TAB PO SCH (08:56)
[2023-10-28] MEDS: ISOSORBIDE MONONITRATE ER 15 MG TAB PO SCH (08:57)
[2023-10-28] MEDS ORDERED: ASPIRIN 325 MG TAB PO SCH (09:00)
[2023-10-28 09:46] LABS: VLDL Calculation 7.72 mg/dL (5.00-40.00)
[2023-10-28 09:47] LABS: LDL Cholesterol,Calculated 30.8 mg/dL (0.0-131.0)
[2023-10-28] MEDS: ACETAMINOPHEN TAB 325 MG TAB PO PRN (16:50)
[2023-10-28] MEDS: busPIRone HCl 10 MG TAB PO PRN (17:49)
[2023-10-28] MEDS ORDERED: BUPRENORPHINE-NALOX 8-2 MG TAB 1 EACH TAB.SUBL SL SCH (22:00)
[2023-10-28] MEDS ORDERED: [UNRECOGNIZED DRUG - OTHER] SL SCH (22:41)
[2023-10-29] MEDS: BUPRENORPHINE SUBLINGUAL SCH ×2 (00:22→09:13)
[2023-10-29] MEDS: NALOXONE SUBLINGUAL SCH ×2 (00:22→09:13)
--- NOTE | 2023-10-29 14:42 | P.PN ---
Subjective Progress Note Date: 10/29/23 HISTORY OF PRESENTING ILLNESS [73-year-old with past medical history of recurrent chronic chest pain, severe concentric LVH, chronic ECG changes with deep T wave inversions, underwent recent heart cath 1 month ago which did not show any obstructive coronary artery disease. He presented to the hospital because of worsening substernal chest pain and symptoms of lightheadedness when he was working in his yard. Patient reported that he overexerted himself. This morning his symptoms are better. ECG shows sinus bradycardia with diffuse T wave inversions, this is not changed from prior ECG troponin of 0.05, 0.03, BUN 21, creatinine 0.6, hemoglobin 10.8 10/28 Patient is seen today in follow-up in the emergency center waiting for bed on the cardiac stepdown unit. He denies having any chest pain at this time. Blood pressure 132/89, heart rate 57, pulse ox 98% on room air. Echocardiogram is pending. Triglycerides 38, cholesterol 103, LDL 30, HDL 64. PHYSICAL EXAMINATION Vital signs reviewed. Head: Normocephalic. Eyes: Sclerae nonicteric. Neck: Brisk carotid upstroke, no jugular venous distention. Lungs: Clear to auscultation. Heart: Regular rate and rhythm, S1-S2, no S3, systolic murmur. Abdomen: Soft nontender, positive bowel sounds. Extremities: No edema, intact distal pulses. Neuro: Alert, oritented, no focal deficits. Detailed neuro exam was not performed. ASSESSMENT Chronic chest pain, likely due to severe LVH Chronic T wave inversions diffusely, likely due to severe LVH Nonobstructive CAD Smoking History of dyslipidemia Moderate MR PLAN Continue Coreg 3.125 mg twice daily because of severe LVH. He does have low resting heart rate. Will try low-dose of Coreg to see if he is able to tolerate or not. Discontinue hydralazine to prevent reflex tachycardia Continue Imdur 15 mg daily, aspirin 81 mg, Amlodipine 2.5 mg daily, atorvastatin 80, Farxiga Recommend outpatient follow-up with primary inspector advanced composite Plan to monitor patient another 24 hours Nurse practitioner note has been reviewed, I agree with documented findings and plan of care. Patient was seen and examined. Objective - Vital Signs Vital signs: Vital Signs Temp 98.0 F 10/28/23 08:50 Pulse 48 L 10/29/23 07:47 Resp 16 05/20/24 07:47 BP 138/83 10/29/23 07:47 Pulse Ox 98 10/29/23 07:47 FiO2 - Labs CBC & Chem 7: 10/28/23 03:21 10/27/23 16:12 Labs: Abnormal Lab Results - Last 24 Hours (Table) 10/28/23 10/28/23 Range/Units 03:21 08:15 APTT 33.2 H (22.0-30.0) sec HDL Cholesterol 64.50 H (40.00-60.00) mg/dL
[2023-10-30 04:32] VITALS: TEMP 97.3
[2023-10-30 09:42] VITALS: BP 162/89; PULSE 55; RESP 16
--- NOTE | 2023-10-30 10:29 | P.PN ---
Subjective Progress Note Date: 10/30/23 HISTORY OF PRESENTING ILLNESS [73-year-old with past medical history of recurrent chronic chest pain, severe concentric LVH, chronic ECG changes with deep T wave inversions, underwent recent heart cath 1 month ago which did not show any obstructive coronary artery disease. He presented to the hospital because of worsening substernal chest pain and symptoms of lightheadedness when he was working in his yard. Patient reported that he overexerted himself. This morning his symptoms are better. ECG shows sinus bradycardia with diffuse T wave inversions, this is not changed from prior ECG troponin of 0.05, 0.03, BUN 21, creatinine 0.6, hemoglobin 10.8 10/28 Patient is seen today in follow-up in the emergency center waiting for bed on the cardiac stepdown unit. He denies having any chest pain at this time. Blood pressure 132/89, heart rate 57, pulse ox 98% on room air. Echocardiogram is pending. Triglycerides 38, cholesterol 103, LDL 30, HDL 64. 10/29 Patient is seen today on the cardiac stepdown unit. Echocardiogram remains pending. Blood pressure 131/81, heart rate 53, pulse ox 97% on room air PHYSICAL EXAMINATION Vital signs reviewed. Head: Normocephalic. Eyes: Sclerae nonicteric. Neck: Brisk carotid upstroke, no jugular venous distention. Lungs: Clear to auscultation. Heart: Regular rate and rhythm, S1-S2, no S3, systolic murmur. Abdomen: Soft nontender, positive bowel sounds. Extremities: No edema, intact distal pulses. Neuro: Alert, oritented, no focal deficits. Detailed neuro exam was not performed. ASSESSMENT Chronic chest pain, likely due to severe LVH Chronic T wave inversions diffusely, likely due to severe LVH Nonobstructive CAD Smoking History of dyslipidemia Moderate MR PLAN Continue Coreg 3.125 mg twice daily because of severe LVH. He does have low resting heart rate. Continue Imdur 15 mg daily, aspirin 81 mg, Amlodipine 2.5 mg daily, atorvastatin 80, Farxiga Patient is cleared for discharge from cardiology and may follow-up in the office with Dr. Jolly in 1 week. Nurse practitioner note has been reviewed, I agree with documented findings and plan of care. Patient was seen and examined. Objective - Vital Signs Vital signs: Vital Signs Temp 97.3 F L 10/30/23 04:00 Pulse 53 L 10/30/23 04:00 Resp 18 10/30/23 04:00 BP 131/81 10/30/23 04:00 Pulse Ox 97 10/30/23 04:00 FiO2 Intake & Output 10/29/23 10/30/23 10/30/23 18:59 06:59 18:59 Intake Total 702 Balance 702 Weight 49.895 kg Intake: Oral 702 Other: Voiding Method Toilet # Voids 1 - Labs CBC & Chem 7: 10/28/23 03:21 10/27/23 16:12
--- NOTE | 2023-10-30 11:55 | PN ---
PROGRESS NOTE DATE OF SERVICE: 10/28/2023 CHIEF COMPLAINT: Acute coronary syndrome. HISTORY OF PRESENT ILLNESS: This gentleman is doing well and he is being further evaluated by Cardiology. He denies any chest pain. Blood pressure has been slightly low under 100 occasionally. PHYSICAL EXAMINATION: GENERAL: He is awake and alert. Chest: Clear. CARDIAC: Normal. ABDOMEN: Soft, nontender. IMPRESSION: 1. Acute coronary syndrome. 2. Hypotension. 3. Recent myocardial infarction. PLAN: Wait for any further recommendations from Cardiology while increasing his activity. MMODL / IJN: [id number] /
--- NOTE | 2023-10-30 12:04 | PN ---
PROGRESS NOTE DATE OF SERVICE: 10/29/2023 CHIEF COMPLAINT: Acute coronary syndrome. HISTORY OF PRESENT ILLNESS: This gentleman is doing well. He is undergoing further evaluation by Cardiology. PHYSICAL EXAMINATION: VITAL SIGNS: Normal. CHEST: Clear. CARDIAC: Normal. IMPRESSION: Acute coronary syndrome. PLAN: Increase activity and probably home if Cardiology has no further studies planned. MMODL / IJN: [id number] /
--- NOTE | 2023-10-30 12:34 | HP ---
HISTORY AND PHYSICAL CHIEF COMPLAINT: Chest pain. HISTORY OF PRESENT ILLNESS: This is another recent admission for this 73-year-old white male. He was in the hospital recently with myocardial infarction. He had been in previous to that with chest pain, went home about a week later, had the [place]. He is probably not being compliant with his medications. He presented to the emergency room with chest pain and his troponin was elevated again. REVIEW OF SYSTEMS: He denies syncope, palpitations, diaphoresis, shortness of breath, radiation of the pain, etc. Past medical history, family history, and personal and social histories are all otherwise unremarkable, noncontributory and unchanged. PHYSICAL EXAMINATION: HEENT: Head, ears, eyes, nose, mouth and throat were normal. NECK: Veins not distended. CHEST: Clear. CARDIAC: Demonstrated sinus rhythm. There is no murmur or extra sounds. ABDOMEN: Soft and nontender. EXTREMITIES: Normal. NEUROLOGICAL: Intact. DIAGNOSES: He is admitted to the hospital with diagnoses, 1. Acute coronary syndrome. 2. Coronary artery disease. 3. Recent myocardial infarction. 4. History of ASCVD. 5. Chronic obstructive pulmonary disease. PLAN: 1. Bedrest. 2. IV fluids. 3. Serial EKGs and enzymes. 4. Consult Cardiology. MMODL / IJN: [id number] /
--- NOTE | 2023-10-30 13:41 | CA ---
Transthoracic Echo Report Name: Randy Harry Age: 73 Gender: M : 1950 Exam Date: 10/30/2023 08:16 Exam Location: [facility] Ht (in): 63 Wt (lb): 110 Ordering Physician: Shannon Carballo Attending/Referring Phys: [id number], Kait Engineer Of System Development Samantha Avery RDCS Procedure CPT: Indications: LVF Cardiac Hx: Technical Quality: Excellent Contrast 1: Total Dose (mL): Contrast 2: Total Dose (mL): MEASUREMENTS (Male / Female) Normal Values 2D ECHO LV Diastolic Diameter PLAX 3.9 cm 4.2 - 5.9 / 3.9 - 5.3 cm LV Systolic Diameter PLAX 2.6 cm IVS Diastolic Thickness 1.4 cm 0.6 - 1.0 / 0.6 - 0.9 cm LVPW Diastolic Thickness 1.1 cm 0.6 - 1.0 / 0.6 - 0.9 cm LV Relative Wall Thickness 0.6 LV Diastolic Volume MOD BP 120.0 cm??? 67 - 155 / 56 - 104 cm??? LV Systolic Volume MOD BP 33.8 cm??? 22 - 58 / 19 - 49 cm??? LV Ejection Fraction MOD BP 71.8 % >= 55 % LV Cardiac Index MOD BP 2900.9 cm???/min???m??? LV Diastolic Volume MOD 4C 112.8 cm??? LV Systolic Volume MOD 4C 35.3 cm??? LV Ejection Fraction MOD 4C 68.7 % LV Cardiac Index MOD 4C 2608.8 cm???/min???m??? LV Diastolic Length 4C 8.8 cm LV Systolic Length 4C 7.3 cm LV Diastolic Volume MOD 2C 127.7 cm??? LV Systolic Volume MOD 2C 32.3 cm??? LV Ejection Fraction MOD 2C 74.7 % LV Cardiac Index MOD 2C 3210.5 cm???/min???m??? LV Diastolic Length 2C 8.9 cm LV Systolic Length 2C 7.2 cm DOPPLER TR Peak Velocity 191.1 cm/s TR Peak Gradient 14.6 mmHg Right Atrial Pressure 5.0 mmHg Pulmonary Artery Systolic Pressu 19.6 mmHg Right Ventricular Systolic Press 19.6 mmHg FINDINGS Left Ventricle Left ventricular ejection fraction is estimated at 65 %. Abnormal average global longitudinal strain of the left ventricle with a value of 14%. Mildly increased septal wall thickness. Left ventricular cavity size normal. Hyperdynamic left ventricular systolic function. No obvious regional wall motion abnormalities. No obstruction at rest or with valsalva. Right Ventricle Normal right ventricular size and function. Right ventricular systolic pressure within normal limits. Right Atrium Normal right atrial size by visual. Left Atrium Mild left atrial dilatation by visual. Mitral Valve Mitral valve thickened. Myxomatous mitral valve. No evidence for mitral valve prolapse. No mitral stenosis. Mild mitral regurgitation. Aortic Valve Trileaflet aortic valve. No aortic stenosis. Trace aortic regurgitation. Tricuspid Valve Structurally normal tricuspid valve. No tricuspid stenosis. Mild tricuspid regurgitation. Pulmonic Valve Pulmonic valve not well visualized. No pulmonic stenosis. No pulmonic regurgitation. Pericardium No pericardial effusion. Aorta Aortic root and proximal ascending aorta not assessed. CONCLUSIONS Normal left ventricular ejection fraction 65% Moderately increased left ventricular wall thickness Mild mitral regurgitation Mild tricuspid regurgitation No pericardial effusion Previewed by: Dr. Jj Jolly DO (Electronically Signed) Final Date: 30 Oct 2023 13:40
--- NOTE | 2023-10-30 23:40 | DS ---
DISCHARGE SUMMARY CHIEF COMPLAINT: Chest pain. HISTORY OF PRESENT ILLNESS AND PHYSICAL EXAMINATION: Details of this man's history and physical can be found in the initial workup. LABORATORY STUDIES: While he was in the hospital, he had laboratory studies, details of which can be found in the laboratory section of his chart. COURSE IN THE HOSPITAL: After admission, he was placed on bedrest, started on intravenous fluids and he had serial EKGs and enzymes. The troponins elevated slightly. Seen by Cardiology. No further intervention was felt necessary. He was stable and the chest pain was gone. He is doing well. It was felt that he could go home on his usual medications. He will be off hydralazine for fear that his blood pressure was dropping too low. His BNP was quite elevated and he will be followed for heart failure as well. He will be seen in the office in several days. FINAL DIAGNOSES: 1. Acute coronary syndrome. 2. Non ST-elevation myocardial infarction. 3. Congestive heart failure. 4. Atherosclerotic cardiomyopathy. 5. Chronic obstructive pulmonary disease. 6. History of narcotic addiction. OPERATIONS: None. CONSULTATIONS: Cardiology. He is improved. MMODL / IJN: [id number] /
== END 2023-10-30 11:08 | disposition home or self-care (01) ==
LOC: EC 15:50 → 3SCARD 17:47
PROVIDERS: ADMIT Family Medicine; ATTEND Family Medicine
DX: I21.4 Non-ST elevation (NSTEMI) myocardial infarction (principal); I25.10 Atherosclerotic heart disease of native coronary artery without angina pectoris; I25.2 Old myocardial infarction; J44.9 Chronic obstructive pulmonary disease, unspecified; F17.210 Nicotine dependence, cigarettes, uncomplicated; E78.5 Hyperlipidemia, unspecified; N40.0 Benign prostatic hyperplasia without lower urinary tract symptoms
CPT/HCPCS: 96365; 96366 ×2; 99285; 36415; 94640 ×5; 93005 ×2; 93306; 83880; 80061; 80053; 83735; 84484; 85025 ×2; 85610 ×2; 85730 ×2; 71046; G0378 ×4; J1644

== ENCOUNTER 2024-04-28 19:50 | Observation (INO) | payer MEDICARE ==
[2024-04-28 20:25] LABS: Basophils # (A) 0.1 k/uL (0-0.2); Basophils % (A) 1 %; Eosinophils # (A) 0.3 k/uL (0-0.7); Eosinophils % (A) 4 %; HCT 38.6 % (39.0-53.0); HGB 12.6 gm/dL (13.0-17.5); Lymphocytes # (A) 1.1 k/uL (1.0-4.8); Lymphocytes % (A) 12 %; MCHC 32.6 g/dL (31.0-37.0); MCV 97.9 fL (80.0-100.0); Mean Platelet Volume 8.1; Monocytes # (A) 0.4 k/uL (0-1.0); Monocytes % (A) 4 %; Neutrophils # (A) 7.2 k/uL (1.3-7.7); Neutrophils % (A) 79 %; Platelet Count 289 k/uL (150-450); RBC 3.94 m/uL (4.30-5.90); RDW 13.1 % (11.5-15.5); WBC 9.1 k/uL (3.8-10.6)
[2024-04-28 20:37] LABS: ALT 13 U/L (4-49); AST 23 U/L (17-59); African American GFR (CKD) >90 (>60 ml/min/1.73 sqM); Albumin 3.7 g/dL (3.5-5.0); Alkaline Phosphatase 48 U/L (38-126); Anion Gap 2 mmol/L; Blood Urea Nitrogen 20 mg/dL (9-20); Carbon Dioxide 31 mmol/L (22-30); Chloride 108 mmol/L (98-107); Glucose 127 mg/dL (74-99); Magnesium 1.7 mg/dL (1.6-2.3); Non-African American GFR(CKD) >90 (>60 ml/min/1.73 sqM); Potassium 4.1 mmol/L (3.5-5.1); Sodium 141 mmol/L (137-145); Total Bilirubin 0.5 mg/dL (0.2-1.3); Total Protein 6.5 g/dL (6.3-8.2)
[2024-04-28 20:42] LABS: Partial Thromboplastin Time 25.9 sec (22.0-30.0); Prothrombin Time 10.9 sec (10.0-12.5)
--- NOTE | 2024-04-28 21:13 | XR ---
EXAMINATION TYPE: XR chest 2V DATE OF EXAM: 04/28/2024 8:48 PM COMPARISON: Previous chest radiograph 10/27/2023. CLINICAL INDICATION: Male, 73 years old with history of Chest Pain; [facility] TECHNIQUE: XR chest 2V Frontal and lateral views of the chest. FINDINGS: Cardiac silhouette within normal limits for size. No acute focal consolidation. No pleural effusion. No pneumothorax. No acute osseous abnormality. IMPRESSION: No acute cardiopulmonary disease/process. [facility], , 04/28/2024 9:11 PM
--- NOTE | 2024-04-28 21:35 | ED ---
General Adult HPI - General Chief complaint: Chest Pain Stated complaint: Chest Pain,Sob Time Seen by Provider: 04/28/24 21:18 Source: patient Mode of arrival: ambulatory Limitations: no limitations - History of Present Illness Initial comments: Dictation was produced using Paltalk dictation software. please excuse any grammatical, word or spelling errors. Chief Complaint: 73-year-old male with history of myocardial infarction and coronary artery disease presents with chest pain History of Present Illness: Patient 73-year-old male presents to the emergency department chest pain he has been having chest pain for a few hours. Patient was at his friend's house when he started to have symptoms. He has history of coronary artery disease and stents. States that he has a pressure to his left lower chest associated with headache similar to [place] he has had approximately 10 years ago. Denies any nausea. No diaphoresis. The ROS documented in this emergency department record has been reviewed and confirmed by me. Those systems with pertinent positive or negative responses have been documented in the HPI. All other systems are other negative and/or noncontributory. - Related Data Home Medications Medication Instructions Recorded Confirmed Tamsulosin HCl [Flomax] 0.4 mg PO HS 07/18/17 10/28/23 Buprenorphine HCl/Naloxone HCl 0.5 film SL BID 01/18/22 10/28/23 [Suboxone 8 mg-2 mg Sl Film] Multivitamins, Thera [Multivitamin 1 tab PO DAILY 01/18/22 10/28/23 (formulary)] Albuterol Inhaler [Ventolin Hfa 2 puff INHALATION RT-QID PRN 09/06/23 10/28/23 Inhaler] Dicyclomine [Bentyl] 10 mg PO TID PRN 09/06/23 10/28/23 busPIRone HCl [Buspar] 10 mg PO TID PRN 09/06/23 10/28/23 Aspirin EC [Ecotrin Low Dose] 81 mg PO DAILY 09/21/23 10/28/23 Nitroglycerin Sl Tabs [Nitrostat] 0.4 mg SL Q5M PRN 09/21/23 10/28/23 [place] Xl Joint & Muscle Support 1 cap PO DAILY 09/21/23 10/28/23 Pantoprazole [Protonix] 40 mg PO DAILY 09/21/23 10/28/23 buPROPion [Wellbutrin] 100 mg PO BID 09/21/23 10/28/23 Previous Rx's Medication Instructions Recorded Budesonide-Formot 160-4.5 Mcg 2 puff INHALATION RT-BID #1 each 09/08/23 [Symbicort 160-4.5 Mcg Inhaler] Dapagliflozin Propanediol [Farxiga] 10 mg PO DAILY #30 tab 09/08/23 carvediloL [Coreg] 6.25 mg PO BID-W/MEALS #60 tab 09/08/23 Atorvastatin [Lipitor] 80 mg PO HS #30 tab 09/25/23 amLODIPine [Norvasc] 2.5 mg PO DAILY #30 tab 09/25/23 Isosorbide Mononitrate ER [Imdur] 15 mg PO DAILY #30 tab 10/30/23 Allergies Allergy/AdvReac Type Severity Reaction Status Date / Time IV DYE Allergy Rash/Hives Uncoded 04/28/24 20:02 Review of Systems ROS Statement: Those systems with pertinent positive or pertinent negative responses have been documented in the HPI. ROS Other: All systems not noted in ROS Statement are negative. Past Medical History Past Medical History: Chest Pain / Angina, GERD/Reflux, Hyperlipidemia, Hypertension, Myocardial Infarction ([place]), Prostate Disorder Additional Past Medical History / Comment(s): "Blurry vision, need glasses." Varicose veins. Last Myocardial Infarction Date:: 2017 History of Any Multi-Drug Resistant Organisms: None Reported Past Surgical History: Heart Catheterization With Stent Additional Past Surgical History / Comment(s): stent X2. HEMORROIDECTOMY. PROSTATE SURGERY, BPH. COLONOSCOPY Past Anesthesia/Blood Transfusion Reactions: No Reported Reaction Date of Last Stent Placement:: ? -approx 15 yrs Past Psychological History: ADD/ADHD, Anxiety, Bipolar, Depression Smoking Status: Current every day smoker - Past Family History Father History Unknown: Yes Family Medical History: Cancer, CVA/TIA Additional Family Medical History / Comment(s): . Mother History Unknown: Yes Family Medical History: Cancer Additional Family Medical History / Comment(s): Lung cancer. Brother(s) History Unknown: Yes Family Medical History: Cancer Additional Family Medical History / Comment(s): Lung Cancer. General Exam - General Exam Comments Initial Comments: PHYSICAL EXAM: General Impression: Alert and oriented x3, mild distress secondary to pain HEENT: Normocephalic atraumatic, extra-ocular movements intact, pupils equal and reactive to light bilaterally, mucous membranes moist. Cardiovascular: Heart regular rate and rhythm Chest: Able to complete full sentences, no retractions, no tachypnea Abdomen: abdomen soft, non-tender, non-distended, no organomegaly Musculoskeletal: Pulses present and equal in all extremities, no peripheral edema Motor: no focal deficits noted Neurological: CN II-XII grossly intact, no focal motor or sensory deficits noted Skin: Intact with no visualized rashes Psych: Normal affect and mood Limitations: no limitations Course Vital Signs 04/28/24 04/28/24 04/28/24 20:00 21:50 22:10 Temperature 98 F 98.3 F Pulse Rate 69 56 L 54 L Respiratory 16 15 13 Rate Blood Pressure 117/82 119/88 111/82 O2 Sat by Pulse 99 97 97 Oximetry 04/28/24 04/28/24 04/29/24 22:30 22:40 00:20 Temperature Pulse Rate 51 L 55 L 53 L Respiratory 14 14 14 Rate Blood Pressure 111/82 122/86 108/82 O2 Sat by Pulse 97 97 96 Oximetry - Reevaluation(s) Reevaluation #1: 04/28/24 21:34 Case discussed in detail with Dr. Jolly at approximately 9:30 PM. Patient had been in the waiting room and brought back immediately due to elevated troponin. I did review his EKG showed ischemic findings. There did not appear to be any obvious ST elevations in 2 contiguous leads. However given his history there was significant concern for myocardial infarction. Historically patient does have history of elevated troponins between 0.03 and as high as 0.1. He has some chest pain actively. He did not have a nitro upon my initial evaluation. Dr. Jolly will review EKGs and provide further recommendations. Reevaluation #2: 04/28/24 21:40 Dr. Jolly called back at 9:40 PM he reviewed EKGs stated that patient does not meet criteria for [employer] activation at this time. He recommended trending patient's troponins in the meantime. Medical Decision Making - Medical Decision Making Was pt. sent in by a medical professional or institution (, PA, [facility], urgent care, hospital, or fci...) When possible be specific @ -No Did you speak to anyone other than the patient for history (EMS, parent, family, police, friend...)? What history was obtained from this source @ -No Did you review nursing and triage notes (agree or disagree)? Why? @ -I reviewed and agree with nursing and triage notes Were old charts reviewed (outside hosp., previous admission, EMS record, old EKG, old radiological studies, urgent care reports/EKG's, fci records)? Report findings @ -No old charts were reviewed Differential Diagnosis (chest pain, altered mental status, abdominal pain women, abdominal pain men, vaginal bleeding, musculoskeletal, weakness, fever, dyspnea, syncope, headache, dizziness, GI bleed, back pain, seizure, CVA, palpatations, mental health)? @ -Differential Chest Pain: Stable Angina, Unstable Angina, STEMI, NSTEMI Aortic Dissection, Pneumothorax, Musculoskeletal, Esophageal Spasm GERD, Cholecystitis, Pancreatitis, Zoster, this is not meant to be an all-inclusive list. EKG interpreted by me (3pts min.). @ -See above X-rays interpreted by me (1pt min.). @ -x-ray of the chest shows no acute processes CT interpreted by me (1pt min.). @ -None done U/S interpreted by me (1pt. min.). @ -None done What testing was considered but not performed or refused? (CT, X-rays, U/S, labs)? Why? @ -None What meds were considered but not given or refused? Why? @ -None Was smoking cessation discussed for >3mins.? @ -No Were there social determinants of health that impacted care today? How? (Homelessness, low income, unemployed, alcoholism, drug addiction, transportation, low edu. Level, literacy, decrease access to med. care, fdc, rehab)? @ -No Was there de-escalation of care discussed even if they declined (Discuss DNR or withdrawal of care, Hospice)? DNR status @ -No What co-morbidities impacted this encounter? (DM, HTN, Smoking, COPD, CAD, Cancer, CVA, ARF, Chemo, Hep., AIDS, mental health diagnosis, sleep apnea, morbid obesity)? @ -[place], coronary artery disease Was patient admitted / discharged? Hospital course, mention meds given and route, prescriptions, significant lab abnormalities, going to OR and other pertinent info. @ -73-year-old male presents with symptoms concerning for acute coronary syndrome. He has multiple risk factors including TX, coronary artery disease and coronary artery stent. Vital signs are stable. Patient states that symptoms feel like previous heart attack is had. EKG was concerning for ischemia. Case discussed immediately with cardiology who reported that patient did not meet criteria for Director [employer] activation. Laboratory evaluation obtained. Initial troponin 0.051. Second troponin is 0.043. Patient given aspirin and started heparin will be admitted observation. Case discussed with hospitalist for admission Did you discuss the management of the patient with other professionals (professionals i.e. , PA, [employer] [facility], lab, RT, psych nurse, socially responsible investment adviser, hand i blocker, teacher, chief quality officer, patient case coordinator)? Give summary @ -No Was critical care preformed (if so, how long)? @ -Yes, 33 minutes Undiagnosed new problem with uncertain prognosis? @ -No Drug Therapy requiring intensive monitoring for toxicity (Heparin, Nitro, Insulin, Cardizem)? @ -No Were any procedures done? @ -No Diagnosis/symptom? Acute, or Chronic, or Acute on Chronic? Uncomplicated (without systemic symptoms) or Complicated (systemic symptoms)? @ -Acute coronary syndrome Side effects of treatment? @ -No Exacerbation, Progression, or Severe Exacerbation? @ -No Poses a threat to life or bodily function? How? (Chest pain, [place], [place], pneumonia, PE, COPD, DKA, ARF, appy, cholecystitis, CVA, Diverticulitis, Homicidal, Suicidal, threat to staff... and all critical care pts) @ -yes - Lab Data Result diagrams: 04/28/24 20:13 04/28/24 20:13 Lab Results 04/28/24 04/28/24 04/28/24 Range/Units 13:55 20:13 20:13 WBC 9.4 9.1 (3.8-10.6) k/uL RBC 3.78 L 3.94 L (4.30-5.90) m/uL Hgb 12.0 L 12.6 L (13.0-17.5) gm/dL Hct 36.9 L 38.6 L (39.0-53.0) % MCV 97.5 97.9 (80.0-100.0) fL MCH 31.8 32.0 (25.0-35.0) pg MCHC 32.6 32.6 (31.0-37.0) g/dL RDW 13.5 13.1 (11.5-15.5) % Plt Count 285 289 (150-450) k/uL MPV 9.1 8.1 Neutrophils % 77 79 % Lymphocytes % 13 12 % Monocytes % 6 4 % Eosinophils % 3 4 % Basophils % 1 1 % Neutrophils # 7.3 7.2 (1.3-7.7) k/uL Lymphocytes # 1.2 1.1 (1.0-4.8) k/uL Monocytes # 0.5 0.4 (0-1.0) k/uL Eosinophils # 0.3 0.3 (0-0.7) k/uL Basophils # 0.1 0.1 (0-0.2) k/uL PT 10.9 (10.0-12.5) sec INR 1.0 (<1.2) APTT 25.9 (22.0-30.0) sec Sodium (137-145) mmol/L Potassium (3.5-5.1) mmol/L Chloride (98-107) mmol/L Carbon Dioxide (22-30) mmol/L Anion Gap mmol/L BUN (9-20) mg/dL Creatinine (0.66-1.25) mg/dL Est GFR (CKD-EPI)AfAm (>60 ml/min/1.73 sqM) Est GFR (CKD-EPI)NonAf (>60 ml/min/1.73 sqM) Glucose (74-99) mg/dL Calcium (8.4-10.2) mg/dL Magnesium (1.6-2.3) mg/dL Total Bilirubin (0.2-1.3) mg/dL AST (17-59) U/L ALT (4-49) U/L Alkaline Phosphatase (38-126) U/L Troponin I (0.000-0.034) ng/mL Total Protein (6.3-8.2) g/dL Albumin (3.5-5.0) g/dL 04/28/24 04/28/24 04/28/24 Range/Units 20:13 20:13 23:30 WBC (3.8-10.6) k/uL RBC (4.30-5.90) m/uL Hgb (13.0-17.5) gm/dL Hct (39.0-53.0) % MCV (80.0-100.0) fL MCH (25.0-35.0) pg MCHC (31.0-37.0) g/dL RDW (11.5-15.5) % Plt Count (150-450) k/uL MPV Neutrophils % % Lymphocytes % % Monocytes % % Eosinophils % % Basophils % % Neutrophils # (1.3-7.7) k/uL Lymphocytes # (1.0-4.8) k/uL Monocytes # (0-1.0) k/uL Eosinophils # (0-0.7) k/uL Basophils # (0-0.2) k/uL PT (10.0-12.5) sec INR (<1.2) APTT (22.0-30.0) sec Sodium 141 (137-145) mmol/L Potassium 4.1 (3.5-5.1) mmol/L Chloride 108 H (98-107) mmol/L Carbon Dioxide 31 H (22-30) mmol/L Anion Gap 2 mmol/L BUN 20 (9-20) mg/dL Creatinine 0.72 (0.66-1.25) mg/dL Est GFR (CKD-EPI)AfAm >90 (>60 ml/min/1.73 sqM) Est GFR (CKD-EPI)NonAf >90 (>60 ml/min/1.73 sqM) Glucose 127 H (74-99) mg/dL Calcium 9.0 (8.4-10.2) mg/dL Magnesium 1.7 (1.6-2.3) mg/dL Total Bilirubin 0.5 (0.2-1.3) mg/dL AST 23 (17-59) U/L ALT 13 (4-49) U/L Alkaline Phosphatase 48 (38-126) U/L Troponin I 0.051 H* 0.043 H* (0.000-0.034) ng/mL Total Protein 6.5 (6.3-8.2) g/dL Albumin 3.7 (3.5-5.0) g/dL Disposition Clinical Impression: ACS (acute coronary syndrome) Disposition: ADMITTED IP TO THIS HOSP Condition: Fair Referrals: Tra Lopez MD [Primary Care Provider] - 1-2 days Decision Time: 01:19
[2024-04-28] MEDS: NITROGLYCERIN SL TABS 0.4 MG TAB SUBLINGUAL STA (21:37)
[2024-04-28] MEDS: ASPIRIN 81 MG PO STA (21:42)
[2024-04-28] MEDS: HEPARIN SODIUM 1,000 UN/ML (10ML VL) IV ONE (21:43)
[2024-04-28] MEDS: HEPARIN SOD,PORK IN 0.45% NACL 25,000 UNIT in 0.45% NACL 1 250ML.BAG IV SCH (22:01)
[2024-04-29 00:46] LABS: Basophils # (A) 0.1 k/uL (0-0.2); Basophils % (A) 1 %; Eosinophils # (A) 0.3 k/uL (0-0.7); Eosinophils % (A) 3 %; HCT 36.9 % (39.0-53.0); Lymphocytes # (A) 1.2 k/uL (1.0-4.8); Lymphocytes % (A) 13 %; MCH 31.8 pg (25.0-35.0); MCHC 32.6 g/dL (31.0-37.0); MCV 97.5 fL (80.0-100.0); Mean Platelet Volume 9.1; Monocytes # (A) 0.5 k/uL (0-1.0); Monocytes % (A) 6 %; Neutrophils # (A) 7.3 k/uL (1.3-7.7); Neutrophils % (A) 77 %; Platelet Count 285 k/uL (150-450); RBC 3.78 m/uL (4.30-5.90); RDW 13.5 % (11.5-15.5); WBC 9.4 k/uL (3.8-10.6)
[2024-04-29] MEDS ORDERED: NITROGLYCERIN SL TABS 0.4 MG TAB SUBLINGUAL PRN (00:57)
[2024-04-29] MEDS: HEPARIN SODIUM 1,000 UN/ML (10ML VL) IV PRN (06:31)
[2024-04-29] MEDS ORDERED: amLODIPine 2.5 MG TAB PO SCH (09:30)
[2024-04-29] MEDS ORDERED: CLOPIDOGREL 75 MG TAB PO SCH (09:30)
[2024-04-29] MEDS ORDERED: carvediloL 3.125 MG TAB PO SCH (09:30)
[2024-04-29] MEDS: carvediloL 6.25 MG TAB PO SCH (09:42)
[2024-04-29] MEDS: ISOSORBIDE MONONITRATE ER 15 MG TAB PO SCH (10:18)
--- NOTE | 2024-04-29 14:04 | P.CRDCN ---
History of Present Illness Consult date: 04/29/24 Consult reason: chest pain History of present illness: This is a 73-year-old male patient of Dr. Jolly with past medical history of COPD, hypertension, coronary artery disease status post PCI 20 years ago, tobacco use, hypertension, moderate mitral regurgitation, LVOT, COVID-19 in 2020, prior history of cocaine abuse. We have been asked to evaluate the patient for chest pain. Patient states that he felt like he was going to pass out and he has had similar episodes in the past. He had onset 2 to 3 days ago and yesterday was the worst. He mostly felt like he was dizzy and going to pass out this was the most concerning but he also had a little chest pain. It can happen when he is sitting or active. He feels like he is going to blackout. He was able to get up to the bathroom this morning with his nurse without any difficulty. He states he is feeling okay today. He states he has been taking all of his medications as directed. He tracks his blood pressure at home and it has been fluctuating more so on the low side at 90/70. He is complaining that he is sleeping the whole time he is in the emergency center. Blood pressure 129/76, heart rate 53, pulse ox 100% on room air. Patient has been started on a heparin drip and he received 1 nitroglycerin which seemed to help his chest pain. Patient is seen today in the emergency center waiting for a bed on the cardiac stepdown unit. -EKG: Sinus rhythm with ST depression T wave inversion, left ventricular hypertrophy -Chest x-ray: No acute process -Laboratory studies: WBC 9.1, hemoglobin 12.6. Troponin 0.051, 0.043, 0.052. Potassium 4.1, creatinine 0.72. -Home cardiac medications: Amlodipine 2.5 mg daily, Coreg 3.125 mg twice daily, Plavix 75 mg daily, Imdur 15 mg daily. Patient is also on Flomax 0.8 mg at bedtime -Echocardiogram performed 10/29/2023 revealed EF of 65%, moderately increased left ventricular wall thickness. Mild mitral regurgitation and mild tricuspid regurgitation. No pericardial effusion. Review Of Systems: At the time of my exam: CONSTITUTIONAL: Denies fever or chills. HEENT: Denies blurred vision, vision changes, or eye pain. Denies hemoptysis CARDIOVASCULAR: Denies chest pain. Denies orthopnea. Denies PND. Denies palpitations RESPIRATORY: Denies shortness of breath. GASTROINTESTINAL: Denies abdominal pain. Denies nausea or vomiting. HEMATOLOGIC: Denies bleeding disorders. GENITOURINARY: Denies any blood in urine. SKIN: Denies puritis. Denies rash. Physical examination: Gen: This is a thin 73-year-old male in no acute distress VS: reviewed HEENT: Head is atraumatic, normocephalic. Pupils equal, round. Sclerae is anicte bhupinder. NECK: Supple. No JVD. LUNGS: Clear to auscultation. No wheezes or rhonchi. No intercostal re tractions. HEART: Regular rate and rhythm. 3/6 systolic murmur. ABDOMEN: Soft No tenderness. EXTREMITIES: No pedal edema. No calf tenderness. NEUROLOGICAL: Patient is awake, alert and oriented x3. Assessment: Dizziness Chest pain Hypertension COPD Hyperlipidemia Moderate mitral regurgitation LVOT gradient 44--most likely etiology of patient's symptoms Plan: Resume patient's home cardiac medications with the following changes: DC amlodipine Discontinue Plavix Start aspirin 81 mg daily Increase Coreg to 6.25 mg twice daily Discontinue heparin drip Increase activity and monitor for symptoms Recommend discontinuing Flomax at discharge Further recommendations to follow based upon clinical course Thank you kindly for this consultation. Nurse practitioner note has been reviewed, I agree with documented findings and plan of care. Patient was seen and examined. Past Medical History Past Medical History: Chest Pain / Angina, GERD/Reflux, Hyperlipidemia, Hypertension, Myocardial Infarction ([place]), Prostate Disorder Additional Past Medical History / Comment(s): "Blurry vision, need glasses." Varicose veins. Last Myocardial Infarction Date:: 2018 History of Any Multi-Drug Resistant Organisms: None Reported Past Surgical History: Heart Catheterization With Stent Additional Past Surgical History / Comment(s): stent X2. HEMORROIDECTOMY. PROSTATE SURGERY, BPH. COLONOSCOPY Past Anesthesia/Blood Transfusion Reactions: No Reported Reaction Date of Last Stent Placement:: ? -approx 15 yrs Past Psychological History: ADD/ADHD, Anxiety, Bipolar, Depression Smoking Status: Current every day smoker - Past Family History Father History Unknown: Yes Family Medical History: Cancer, CVA/TIA Additional Family Medical History / Comment(s): . Mother History Unknown: Yes Family Medical History: Cancer Additional Family Medical History / Comment(s): Lung cancer. Brother(s) History Unknown: Yes Family Medical History: Cancer Additional Family Medical History / Comment(s): Lung Cancer. Medications and Allergies Home Medications Medication Instructions Recorded Confirmed Type Tamsulosin HCl [Flomax] 0.8 mg PO HS 07/18/17 04/29/24 History Buprenorphine HCl/Naloxone HCl 1 film SL DAILY 01/18/22 04/29/24 History [Suboxone 8 mg-2 mg Sl Film] amLODIPine [Norvasc] 2.5 mg PO DAILY #30 tab 09/25/23 04/29/24 Rx Clopidogrel [Plavix] 75 mg PO DAILY 04/29/24 04/29/24 History Isosorbide Mononitrate ER [Imdur] 15 mg PO DAILY 04/29/24 04/29/24 History Pantoprazole [Protonix] 40 mg PO DAILY 04/29/24 04/29/24 History buPROPion [Wellbutrin] 100 mg PO BID 04/29/24 04/29/24 History carvediloL [Coreg] 3.125 mg PO BID 04/29/24 04/29/24 History Allergies Allergy/AdvReac Type Severity Reaction Status Date / Time Iodinated Contrast Media Allergy Rash/Hives Verified 04/29/24 07:51 IV DYE Allergy Rash/Hives Uncoded 04/29/24 07:51 Physical Exam Vitals: Vital Signs Temp Pulse Resp BP Pulse Ox 04/29/24 07:54 62 16 106/72 95 04/29/24 06:33 97.4 F L 52 L 16 107/79 96 04/29/24 04:32 50 L 14 102/76 95 04/29/24 03:10 53 L 18 04/29/24 00:20 53 L 14 108/82 96 04/28/24 22:40 55 L 14 122/86 97 04/28/24 22:30 51 L 14 111/82 97 04/28/24 22:10 54 L 13 111/82 97 04/28/24 21:50 98.3 F 56 L 15 119/88 97 04/28/24 20:00 98 F 69 16 117/82 99 Intake and Output 11/18/24 11/19/24 11/19/24 22:59 06:59 14:59 Intake Total 46.356 11.227 Output Total 300 Balance -253.644 . Intake: Intake, IV Titration 46.356 11.227 Amount Heparin Sod,Pork in 0.45% 46.356 11.227 NaCl 25,000 unit In 0.45 % NaCl 1 250ml.bag @ 12 UNITS/KG/HR 5.443 mls/hr IV .Q24H [facility] Rx#: [id number] Output: Urine 300 Other: Weight 45.359 kg Results 04/28/24 20:13 04/28/24 20:13 Cardiac Enzymes 04/28/24 04/28/24 04/28/24 Range/Units 20:13 20:13 23:30 AST 23 (17-59) U/L Troponin I 0.051 H* 0.043 H* (0.000-0.034) ng/mL 04/29/24 Range/Units 02:49 AST (17-59) U/L Troponin I 0.052 H* (0.000-0.034) ng/mL Coagulation 04/28/24 04/29/24 Range/Units 20:13 04:30 PT 10.9 (10.0-12.5) sec APTT 25.9 32.7 H (22.0-30.0) sec CBC 04/28/24 04/28/24 Range/Units 13:55 20:13 WBC 9.4 9.1 (3.8-10.6) k/uL RBC 3.78 L 3.94 L (4.30-5.90) m/uL Hgb 12.0 L 12.6 L (13.0-17.5) gm/dL Hct 36.9 L 38.6 L (39.0-53.0) % Plt Count 285 289 (150-450) k/uL Comprehensive Metabolic Panel 04/28/24 Range/Units 20:13 Sodium 141 (137-145) mmol/L Potassium 4.1 (3.5-5.1) mmol/L Chloride 108 H (98-107) mmol/L Carbon Dioxide 31 H (22-30) mmol/L BUN 20 (9-20) mg/dL Creatinine 0.72 (0.66-1.25) mg/dL Glucose 127 H (74-99) mg/dL Calcium 9.0 (8.4-10.2) mg/dL AST 23 (17-59) U/L ALT 13 (4-49) U/L Alkaline Phosphatase 48 (38-126) U/L Total Protein 6.5 (6.3-8.2) g/dL Albumin 3.7 (3.5-5.0) g/dL Current Medications Generic Name Dose Route Start Last Admin Trade Name Oseasq PRN Reason Stop Dose Admin Aspirin 325 mg 04/30/24 09:00 Aspirin 325 Mg Tab PO DAILY [facility] Heparin Sodium (Porcine) 0 unit 04/28/24 21:29 04/29/24 06:31 Heparin Sodium 1,000 Un/Ml (10ml Vl) IV 2,265 unit PER PROTOCOL PRN Administration Low PTT Protocol Heparin Sodium/Sodium Chloride 250 mls @ 5.443 mls/hr 04/28/24 21:30 04/29/24 08:11 25,000 unit/ Sodium Chloride IV 15 units/kg/hr .Q24H [facility] 6.804 mls/hr Titration Protocol 12 UNITS/KG/HR Nitroglycerin 0.4 mg 04/29/24 00:57 Nitroglycerin Sl Tabs 0.4 Mg Tab SUBLINGUAL Q5M PRN Chest Pain Intake and Output 04/28/24 04/29/24 04/29/24 22:59 06:59 14:59 Intake Total 46.356 11.227 Output Total 300 Balance -253.644 11.227 Intake: Intake, IV Titration 46.356 11.227 Amount Heparin Sod,Pork in 0.45% 46.356 11.227 NaCl 25,000 unit In 0.45 % NaCl 1 250ml.bag @ 12 UNITS/KG/HR 5.443 mls/hr IV .Q24H [facility] Rx#: [id number] Output: Urine 300 Other: Weight 45.359 kg 04/28/24 20:13 04/28/24 20:13
[2024-04-29 15:40] VITALS: BP 132/81; PULSE 62; RESP 18; TEMP 98.2
[2024-04-30] MEDS ORDERED: ASPIRIN 325 MG TAB PO SCH (09:00)
[2024-04-30] MEDS ORDERED: ASPIRIN 81 MG PO SCH (09:00)
--- NOTE | 2024-05-01 03:39 | HP ---
HISTORY AND PHYSICAL CHIEF COMPLAINT: Chest pain. HISTORY OF PRESENT ILLNESS: This is another recent admission for this 73-year-old male, who has had a significant problem with coronary artery disease over the last several years and months. He has been in the hospital on and off lately with unstable angina. He came back in this time with chest pain once again with elevated troponins. REVIEW OF SYSTEMS: He denies any significant diaphoresis or shortness of breath. Review of systems otherwise normal. Past medical history, family history, and personal and social histories reveal that he is on, 1. Isordil. 2. Bupropion. 3. Tamsulosin. 4. Plavix. 5. Atorvastatin. 6. Aspirin. 7. Protonix. 8. Trelegy. 9. Albuterol. 10.Buprenorphine. Remainder of his history is unremarkable. He does continue to smoke. He is very asthenic and he has COPD. PHYSICAL EXAMINATION: VITAL SIGNS: Revealed blood pressure of 100/62 and a pulse of 80. GENERAL: He appeared to be asthenic and chronically ill. HEAD, EARS, EYES, NOSE, MOUTH, AND THROAT: Normal. CHEST: Demonstrated poor breath sounds due to his COPD, but no rales. CARDIAC: Demonstrates sinus rhythm and there are no murmurs or extra sounds. ABDOMEN: Soft, nontender, and scaphoid. EXTREMITIES: Normal. There is no edema. IMPRESSION: 1. Acute coronary syndrome. 2. Advanced triple-vessel coronary artery disease. 3. Chronic obstructive pulmonary disease. PLAN: 1. Bed rest. 2. IV fluids. 3. Serial EKGs and enzymes. 4. Cardiology consult. MMODL / IJN: [id number] /
--- NOTE | 2024-05-03 04:04 | DS ---
DISCHARGE SUMMARY CHIEF COMPLAINT: Chest pain. HISTORY OF PRESENT ILLNESS AND PHYSICAL EXAM: Details of this man's history and physical can be found in the initial workup. LABORATORY STUDIES: While he was in the hospital, he had laboratory studies, details of which can be found in the laboratory section of his chart. COURSE IN THE HOSPITAL: After admission, he was placed on bedrest, started on intravenous fluids and serial EKGs and enzymes. His troponins were elevated. He was seen by Cardiology. They felt that any further intervention was not warranted. They felt it was safe for him to be discharged. He will go home on his usual activity, medications. He will follow up in a day or 2. FINAL DIAGNOSES: 1. Acute coronary syndrome. 2. Coronary artery disease. 3. Non ST elevation myocardial infarction. 4. Chronic obstructive pulmonary disease. OPERATIONS: None. CONSULTATIONS: Cardiology. He is improved. MAXIMO / QUIQUE: [id number] /
== END 2024-04-29 15:40 | disposition home or self-care (01) ==
LOC: EC 19:50 → 3SCARD 04-29 00:57
PROVIDERS: ADMIT Family Medicine; ATTEND Family Medicine
DX: I21.4 Non-ST elevation (NSTEMI) myocardial infarction (principal); I25.10 Atherosclerotic heart disease of native coronary artery without angina pectoris; I08.1 Rheumatic disorders of both mitral and tricuspid valves; J44.9 Chronic obstructive pulmonary disease, unspecified; I10 Essential (primary) hypertension; I25.2 Old myocardial infarction; E78.5 Hyperlipidemia, unspecified; F17.200 Nicotine dependence, unspecified, uncomplicated; F31.9 Bipolar disorder, unspecified; F90.9 Attention-deficit hyperactivity disorder, unspecified type; F41.9 Anxiety disorder, unspecified; Z79.82 Long term (current) use of aspirin; Z79.51 Long term (current) use of inhaled steroids; Z79.02 Long term (current) use of antithrombotics/antiplatelets; Z79.84 Long term (current) use of oral hypoglycemic drugs; Z79.899 Other long term (current) drug therapy; Z86.16 Personal history of COVID-19; Z91.041 Radiographic dye allergy status; Z95.5 Presence of coronary angioplasty implant and graft
CPT/HCPCS: 96366 ×2; 96365; 99285; 36415; 93005; 80053; 82607; 82746; 83735; 84484 ×2; 85025 ×2; 85610; 85730 ×2; 83036; 71046; G0378; J1644 ×3

== ENCOUNTER → 2024-12-08 | Outpatient (CLI) | payer MEDICARE ==
--- NOTE | 2024-12-08 16:38 | US ---
EXAMINATION TYPE: US venous doppler duplex LE LT DATE OF EXAM: 12/08/2024 4:25 PM COMPARISON: US left lower extremity 04/08/2022 CLINICAL INDICATION: Male, 74 years old with history of M79.89,R60.0 EDEMA; Left leg swelling, Pain TECHNIQUE: The lower extremity deep venous system is examined utilizing real time linear array sonog jose with graded compression, color doppler sonography, and spectral doppler. SIDE PERFORMED: Left FINDINGS: VESSELS IMAGED: Common Femoral Vein Deep Femoral Vein Greater Saphenous Vein * Femoral Vein Popliteal Vein Small Saphenous Vein * Proximal Calf Veins (* superficial vessels) Multiple lymph nodes scattered throughout left groin, normal in size, however fatty hilum not clearly visualized within these lymph nodes. These are probably reactive and benign. Left Leg: Negative for DVT, Color Doppler imaging shows patency of the vessels. Spectral waveforms a re within normal limits. IMPRESSION: No evidence of deep vein thrombosis of the left lower extremity. [facility], , 12/08/2024 4:36 PM
== END | disposition home or self-care (01) ==
LOC: RADUSWWP 16:09
PROVIDERS: ATTEND Family Medicine
DX: M79.89 Other specified soft tissue disorders (principal)

== ENCOUNTER → 2024-12-19 | Outpatient (CLI) | payer MEDICARE ==
[2024-12-19 13:06] LABS: African American GFR (CKD) >90 (>60 ml/min/1.73 sqM); Blood Urea Nitrogen 18 mg/dL (9-20); Non-African American GFR(CKD) >90 (>60 ml/min/1.73 sqM)
--- NOTE | 2024-12-19 14:03 | CT ---
EXAMINATION TYPE: CT chest w con DATE OF EXAM: 12/19/2024 1:23 PM COMPARISON: 10/17/2023 CLINICAL INDICATION: Male, 74 years old with history of J44.9 CHRONIC OBSTRUCTIVE PULMONARY DISEASE, UNSPE, COPD, weight loss TECHNIQUE: Axial images were obtained at 5 mm thick sections. Reconstructed images are reviewed on [employer] computer in the coronal plane. Contrast used:100 mL of Isovue 300 with IV Contrast, (none if empty) Oral contrast used: (none if empty) CT DLP: 240 mGycm, Automated exposure control for dose reduction was used. FINDINGS: Portion of the thyroid visualized is normal. Small amount of scarring is likely present at the right apex. Emphysematous changes are present. There is a stable punctate density in the periphery of the right upper lateral lung. Series 4 image 3 6. No enlarged mediastinal or hilar adenopathy is evident. The ascending aorta diameter at the level o f the main pulmonary artery is 3.3 cm. The main pulmonary artery diameter at the bifurcation is 2.8 cm. Moderate coronary artery calcifications present. Limited CT sections are obtained through the upper abdomen. Abdomen is essentially unremarkable. IMPRESSION: 1. Emphysematous changes similar to prior exam. [facility], , 12/19/2024 2:00 PM
== END | disposition home or self-care (01) ==
LOC: RADCTMAIN 12:20
PROVIDERS: ATTEND Internal Medicine
DX: J44.9 Chronic obstructive pulmonary disease, unspecified (principal); J43.9 Emphysema, unspecified
CPT/HCPCS: 82565; 84520; 71260; 36415; Q9967